=== PATIENT | male | born 1935 | race Caucasian/White ===

== ENCOUNTER 2018-04-05 18:54 | Inpatient (IN) | payer MEDICARE, MEDICAID ==
[~2018-04-05 18:54] MED LIST: ISOVUE-370 76%-LOCM 1 ML ONE
[2018-04-05 20:00] LABS: Hemoglobin 10.9 g/dL (14.0-18.0); Mean Corpuscular HGB CONC 32.9 g/dL (32.0-36.0); Mean Corpuscular Hemoglobin 29.9 pg (27.0-31.0); Mean Corpuscular Volume 90.7 fL (78.0-98.0); Mean Platelet Volume 8.5 fL (7.4-10.4); Platelet Count 184 thou/uL (130-400); RBC Distribution Width 13.7 % (11.5-14.5); Red Blood Cell (RBC) Count 3.66 mill/uL (4.70-6.10); White Blood Cell (WBC) Count 21.9 thou/uL (4.8-10.8)
[2018-04-05 20:08] LABS: #Lymphocytes 0.9 thou/uL (1.20-3.40); #Monocytes 1.7 thou/uL (0.11-0.59); #Neutrophils 19.1 thou/uL (1.40-6.50); %Basophils 0.1 % (0.0-1.0); %Eosinophils 0.1 % (0.0-10.0); %Lymphocytes 4.3 % (21.0-51.0); %Monocytes 7.8 % (0.0-10.0); %Neutrophils 87.8 % (42.0-75.0)
[2018-04-05 20:18] LABS: ALT (SGPT) 9 U/L (8-55); AST (SGOT) 14 U/L (5-34); Albumin 3.6 g/dL (3.4-4.8); Alkaline Phosphatase 58 U/L (40-150); Anion Gap 15 mmol/L (10-20); BUN (Urea Nitrogen) 33 mg/dL (8.4-25.7); Bilirubin, Total 0.5 mg/dL (0.2-1.2); Calc. Creatinine Clearance 0 mL/min (70-130); Calcium 8.9 mg/dL (7.8-10.44); Carbon Dioxide 26 mmol/L (23-31); Chloride 102 mmol/L (98-107); Estimated GFR-MDRD 36; Globulin 2.6 g/dL (2.4-3.5); Glucose 128 mg/dL (83-110); Lipase 5 U/L (8-78); Potassium 3.8 mmol/L (3.5-5.1); Protein, Total 6.2 g/dL (5.8-8.1); Sodium 139 mmol/L (136-145)
--- NOTE | 2018-04-05 20:27 | RAD ---
PORTABLE CHEST ONE VIEW: HISTORY: An 83-year-old male with a history of fever and abdominal pain. FINDINGS: Mild cardiomegaly. Increased linear and interstitial markings bilaterally, stable from prior study o f 12/03/2016. No confluent pneumonia, overt edema, or pleural effusion. IMPRESSION: 1. Stable borderline heart size and chronic appearing linear and interstitial lung changes bilateral ly. 2. No pneumonia or other significant acute process. 3. Atherosclerosis of the aorta. POS: [facility]
[2018-04-05] MEDS ORDERED: Famotidine/PF 20 mg/2ml Vial ONE (20:44)
[2018-04-05] MEDS ORDERED: methylPREDNISolone Sod Succ/PF 125 MG/2 ML VIAL ONE (20:44)
[2018-04-05] MEDS ORDERED: Piperacillin/Tazobactam 3.375 GM VIAL ONE (20:44)
[2018-04-05] MEDS ORDERED: Water For Inject, Bacteriostat 30 ML ONE (20:44)
[2018-04-05] MEDS ORDERED: diphenhydrAMINE 50 MG/ML VIAL ONE (20:49)
--- NOTE | 2018-04-05 21:06 | CT ---
CT ABDOMEN WITH CONTRAST: CT PELVIS WITH CONTRAST: COMPARISON: 12/01/2016 FINDINGS: ABDOMEN: A 1 cm nodule in the right lung base. Small bilateral effusions with adjacent parenchymal change is likely due to atelectasis. Questionable subcentimeter nodules in the inferior aspect of th e middle lobe. The heart is enlarged. No significant pericardial fluid. The visualized aorta has a n overall normal caliber. No periaortic fat stranding. The left renal vein is circumaortic. The portal vein is patent. The spleen, pancreas, adrenal glands, and liver have appropriate enhancement. Symmetric enhancement of the kidneys. Mild bilateral renal cortical thinning. Bilaterally, no obstr uctive uropathy. No gastrohepatic, retrocrural, or periportal lymphadenopathy. No mesenteric mass, lymphadenopathy, free air, or free fluid. Small umbilical hernia, containing mes enteric fat. Limited evaluation of the alimentary canal due to lack of oral contrast administration. Gastric muco sa and duodenum are unremarkable. Multiple normal caliber small bowel loops. The ileocecal junction is normal. An appendix is not appreciated. No inflammation at the cecal apex. The cecum, ascendin g colon, transverse colon, and proximal descending colon are unremarkable. The mid to distal descend ing colon, as well as the proximal sigmoid colon, have mucosal enhancement and wall thickening, along with mild pericolonic fat stranding. The mid to distal sigmoid colon and the rectum demonstrate muc osal enhancement and wall thickening. There appears to be circumferential air in the dependent, as w ell as nondependent, portion. A component of pneumatosis cannot be completely excluded. PELVIS: No mass, lymphadenopathy, free air, or free fluid. Unremarkable urinary bladder. No lytic or blastic lesions in the osseous structures. There is evidence of previous vertebroplasty change with methylmethacrylate involving the sacrum. Internal fixation hardware is noted in the righ t hip. IMPRESSION: Mucosal changes involving the left hemicolon, as described above. Findings may be due to an ischemic , infectious or inflammatory process. There appears to be pneumatosis involving the distal sigmoid c olon and rectum. The results of the study were discussed with Christa Melendez RN on 04/05/2018 at 8:47 p.m. CODE CR POS: [facility]
[2018-04-05 21:38] LABS: Bilirubin Small (Negative); Blood, Urine Negative (Negative); Clarity CLOUDY (Clear); Glucose, Urine (Dipstick) Negative (Negative); Leukocyte Small (Negative); Nitrite Negative (Negative); Protein, Urine (Dipstick) Trace mg/dL (Neg-Trace); Specific Gravity, Urine 1.013 (1.002-1.036); pH, Urine 5.5 (5.0-9.0)
[2018-04-05 21:40] LABS: Bacteria/HPF 1+ HPF (None Seen); Hyaline Casts/LPF 0-3 HYALINE CAST LPF (0-3 Hyaline); Pathc Cast-AUWi Flag 0.29 (0-2.49); RBC/HPF 0-3 HPF (0-3); Squamous Epithelial 0-3 HPF (0-3)
[2018-04-06] MEDS ORDERED: Ondansetron PF 4 MG/2 ML Vial IVP PRN (00:55)
[2018-04-06] MEDS ORDERED: Acetaminophen 650 MG Suppository PR PRN (00:55)
[2018-04-06 02:06] VITALS: BMI 30.3
[2018-04-06] MEDS ORDERED: cloNIDine 0.3mg/24 Hour PATCH TD SCH ×2 (02:15→09:00)
[2018-04-06] MEDS ORDERED: Sodium Chloride 0.9% 1,000 ML IV SCH (02:15)
[2018-04-06] MEDS: Sodium Chloride 0.9% 1,000 ML IV SCH ×2 (02:25→22:50)
[2018-04-06 04:32] LABS: #Lymphocytes 1.6 thou/uL (1.20-3.40); #Monocytes 0.3 thou/uL (0.11-0.59); #Neutrophils 15.3 thou/uL (1.40-6.50); %Basophils 0.1 % (0.0-1.0); %Eosinophils 0.3 % (0.0-10.0); %Lymphocytes 9.5 % (21.0-51.0); %Monocytes 1.5 % (0.0-10.0); %Neutrophils 88.7 % (42.0-75.0); Hemoglobin 10.9 g/dL (14.0-18.0); Mean Corpuscular HGB CONC 32.7 g/dL (32.0-36.0); Mean Corpuscular Hemoglobin 29.4 pg (27.0-31.0); Platelet Count 138 thou/uL (130-400); RBC Distribution Width 13.8 % (11.5-14.5); White Blood Cell (WBC) Count 17.3 thou/uL (4.8-10.8)
[2018-04-06 04:46] LABS: Anion Gap 15 mmol/L (10-20); BUN (Urea Nitrogen) 33 mg/dL (8.4-25.7); Calc. Creatinine Clearance 41 mL/min (70-130); Calcium 8.3 mg/dL (7.8-10.44); Carbon Dioxide 20 mmol/L (23-31); Chloride 107 mmol/L (98-107); Estimated GFR-MDRD 40; Glucose 153 mg/dL (83-110); Potassium 3.8 mmol/L (3.5-5.1); Sodium 138 mmol/L (136-145)
[2018-04-06] MEDS: Piperacillin/Tazobactam 2.25 GM in Sodium Chloride 0.9% 100 ML IVPB SCH ×3 (05:56→17:25)
[2018-04-06] MEDS ORDERED: Piperacillin/Tazobactam 4.5 GM in Sodium Chloride 0.9% 100 ML IVPB SCH (06:00)
[2018-04-06 08:54] LABS: CKMB 1.2 ng/mL (0-6.6); Troponin I 0.014 ng/mL (< 0.028)
--- NOTE | 2018-04-06 13:29 | PDOC.PN ---
- Subjective Encounter Start Date: 04/06/18 Encounter Start Time: 13:27 Subjective: still some abd pain arpound umbilicus,denies any N/V - Objective Resuscitation Status: Resuscitation Status FULL:Full Resuscitation MAR Reviewed: Yes Vital Signs & Weight: Vital Signs (12 hours) Temp Pulse Resp BP Pulse Ox 04/06/18 12:00 100 04/06/18 11:13 97.1 F L 57 L 16 170/91 H 100 04/06/18 08:00 98 04/06/18 07:58 97.8 F 59 L 15 158/62 H 99 04/06/18 03:35 97.6 F 61 20 158/83 H 96 Weight Weight 187 lb 13.341 oz Most Recent Monitor Data Heart Rate from ECG 55 NIBP 167/64 NIBP BP-Mean 98 Respiration from ECG 14 SpO2 98 I&O: 04/05/18 04/06/18 04/07/18 06:59 06:59 06:59 Intake Total 165 Balance 165 Result Diagrams: 04/06/18 04:15 04/06/18 04:15 Additional Labs: Microbiology 04/05/18 21:00 Nasal swab Influenza Types A,B Direct EIA - Final 04/05/18 21:05 Venous blood - Right Hand Blood Culture - Preliminary Specimen has been received and culture in progress. No Growth to date. 04/05/18 20:59 Venous blood - Left Hand Blood Culture - Preliminary Specimen has been received and culture in progress. No Growth to date. Laboratory Tests 04/05/18 04/05/18 04/06/18 19:50 19:50 04:15 WBC 21.9 H Creatinine 1.83 H 1.67 H 04/06/18 04:15 WBC 17.3 H Creatinine Phys Exam - Physical Examination Constitutional: NAD HEENT: PERRLA, moist MMs, sclera anicteric, TM's clear, oral pharynx no lesions , 2+ tonsils Neck: no nodes, no JVD, supple, full ROM Respiratory: no wheezing, no rales, no rhonchi, clear to auscultation bilateral Cardiovascular: RRR, no significant murmur, no rub, gallop Gastrointestinal: non-tender loud BS,TTP lower abdomen.no rigidity Musculoskeletal: no edema, pulses present Neurological: non-focal, normal sensation, moves all 4 limbs Psychiatric: normal affect, A&O x 3 Deviation from normal: orineted to self & place at least.understands the Dx & wants all tretament Skin: no rash Dx/Plan (1) Pneumatosis coli Code(s): K63.89 - OTHER SPECIFIED DISEASES OF INTESTINE Status: Acute (2) UTI (urinary tract infection) Status: Acute (3) Sinus pause Code(s): I45.5 - OTHER SPECIFIED HEART BLOCK Status: Acute (4) SIRS (systemic inflammatory response syndrome) Code(s): R65.10 - SIRS OF NON-INFECTIOUS ORIGIN W/O ACUTE ORGAN DYSFUNCTION Status: Acute (5) HTN (hypertension) Code(s): I10 - ESSENTIAL (PRIMARY) HYPERTENSION Status: Chronic (6) Macrocytic anemia Code(s): D53.9 - NUTRITIONAL ANEMIA, UNSPECIFIED Status: Chronic (7) Paroxysmal a-fib Code(s): I48.0 - PAROXYSMAL ATRIAL FIBRILLATION Status: Chronic (8) Acute kidney failure Status: Resolved - Plan continue antibiotics, PT/OT, DVT proph w/SCDs Conservative Rx for now.Poor surgical candidate.discussed w GS -: cont NPO,IVF,empiric ABx. -: consult GI if a colonoscopy is needed.pt wants aggressive Rx as neccessary -: Cardio consulted for sinus pauses.Hold BB.H/O PAFib -: clonidine patch & PRN meds for BP * .Palliative care team consulted for Goals of care as pt has H/O dementia and no immediate family member available .Full code till then * WBC counts and Renal Function improving.monitor
--- NOTE | 2018-04-06 14:15 | CON ---
DATE OF CONSULTATION: 04/06/2018 HISTORY OF PRESENT ILLNESS: Mr. Aguilar an 83-year-old male who reportedly has dementia. He was able to actually answer questions, knows he is in the hospital and knows he is here for abdominal pain. The nurses say his mental status will drift out and in, but for the most part, he seems to be fairly oriented. He apparently lives in a fulltime care environment, I am told because of dementia. He actually was in the hospital a year ago with a diagnosis of encephalopathy associated with urinary tract infection and dementia. PAST MEDICAL HISTORY: Remarkable for BPH, reflux disease, hypertension, atrial fibrillation, deconditioning. In 2017, he had a barium swallow done that showed good airway protection. Old records show that he has had macrocytic anemia in the past, moderate right internal carotid stenosis and a CVA in the past. He is on 20 medications when he was here in 10/2016. FAMILY HISTORY: Noncontributory. There is no reported history of lung disease in old records. SOCIAL HISTORY: He is not a smoker, not a drinker at this time. ALLERGIES: He reports an allergy to IODINE. REVIEW OF SYSTEMS: 10 point review of systems completed, not accurately obtainable. PHYSICAL EXAMINATION: GENERAL: Mr. Aguilar an 83-year-old male who reportedly has dementia. VITAL SIGNS: He is afebrile, heart rate is in the 50s, respiratory rate is 16, oximetry is 100% on room air, blood pressure 170/91. HEENT: Pupils are equal. Sclerae are anicteric. NECK: Supple. No lymphadenopathy. LUNGS: Clear. HEART: Regular rhythm. S1 and S2 are normal. There is a grade 2/6 systolic murmur. ABDOMEN: Diffusely tender, more so on the left lower quadrant. EXTREMITIES: Without clubbing, cyanosis or edema. LABORATORY DATA: White count 17.3, hemoglobin 10.9, platelets 138,000. Sodium 138, potassium 3.8, chloride 107, bicarbonate 20, BUN 33, creatinine 1.67, which is improved from 1.83. PH on a venous gas was 7.31. CT of the abdomen and pelvis is suggestive of a low-grade small-bowel obstruction. A large amount of stool was seen in the rectum. I do not see anything in the report that suggested pneumatosis, although that was the admitting diagnosis. IMPRESSION AND PLAN: Abdominal discomfort in an 83-year-old demented individual. Discussed with General Surgery. Obviously, conservative approach would be best. Disimpaction or an enema may be helpful. He appears to be hemodynamically stable at this point. His code status needs to be addressed with family. This is a 50-minute consult, with greater than 50% of the time was spent on the unit coordinating care. SERA
--- NOTE | 2018-04-06 14:58 | CON ---
DATE OF CONSULTATION: 04/06/2018 INDICATION FOR CONSULTATION: An 83-year-old patient with bradycardia and pauses. HISTORY OF PRESENT ILLNESS: This is a very pleasant 83-year-old gentleman who has some degree of dem entia, who was brought to the emergency room and admitted to the hospital after he complained of [place] pain and fever. He has been found to have possible pneumatosis of the distal sigmoid and possi bill ischemic colitis. He has been complaining of abdominal discomfort, but during the interim, he eaton s developed bradycardia with up to 2.9 second pauses. He has been on clonidine patch, which we would stop as this may be the etiology of his bradycardia, who has had no previous cardiac history in this patient. He does have a history of intermittent paroxysmal atrial fibrillation. At this time, he i s in a sinus rhythm with occasional PACs, but does have episodes of severe bradycardia, this does odette ear to be sinus and then has multiple pauses up to 2.9 seconds. He denies any chest pain or shortnes s of breath. He mainly complains of abdominal discomfort. He did have an echocardiogram in 2017, wh ich showed ejection fraction of 50% to 55% with moderate mitral and tricuspid valve regurgitation. PAST MEDICAL HISTORY: Significant for hypertension, benign prostatic hypertrophy, small-bowel obstru ction, Alzheimer's, paroxysmal atrial fibrillation, gastroesophageal reflux disease. He has had a CV A in the past. He has chronic anemia. SOCIAL HISTORY: Please refer to the notes already dictated. FAMILY HISTORY: Please refer the notes dictated. ALLERGIES: IODINE. MEDICATIONS: At this time include antibiotics in the form of piperacillin. He is also on vancomycin . He had a clonidine patch, which I have removed. He is on Tylenol and hydralazine. I started him on hydralazine for his hypertension and he is on H2 blockers. His medications at home included Floma x, Protonix, lisinopril, furosemide 40 mg a day, Aricept, aspirin 325 mg a day, MiraLax, minoxidil 10 mg tablets, he was taken 5 mg I believe once a day, tramadol. He was on Artificial Tears, FiberCon. He wore a Catapres patch and also was on metoprolol 25 mg b.i.d. REVIEW OF SYSTEMS: Not obtainable. The patient does have some dementia. Please refer to the notes dictated. I cannot obtain a corrective review of systems in this patient except he does complain of the abdominal discomfort. PHYSICAL EXAMINATION: GENERAL: Reveals an elderly gentleman. VITAL SIGNS: Blood pressure 158/62, heart rate is 60 and regular at this time, he is afebrile, respi ratory rate is 18. HEENT: Shows the head to be normocephalic and atraumatic. Carotid pulses are present. There is a s oft right carotid bruit noted. No JVD was noted. CHEST: Clear to auscultation. CARDIOVASCULAR: Reveals a regular rhythm at this time, somewhat slow, but regular. I did not hear a ny significant ectopy. There were no significant murmurs, heaves, thrills, bruits or rubs. He has a very soft systolic murmur at the apex. ABDOMEN: Tender. He complains of discomfort. Unable to palpate or do full thorough examination. EXTREMITIES: Pulses are diminished pedal pulses, I cannot palpate them. He does have mild lower ext remity edema bilaterally and ankle edema is present. NEUROLOGIC: The patient appears to be fatigued, but he does answer most questions, but it is difficu lt to obtain a review of systems from the patient. He speaks very few words. IMPRESSION: 1. Significant bradycardia with a history of paroxysmal atrial fibrillation, but at this time, he eaton s had significant pauses associated with the bradycardia. We will hold the clonidine patch. We will need to be careful that he does not have rebound phenomenon from holding the clonidine, but was to c over him with hydralazine as needed. The clonidine may be the etiology of the bradycardia at this ti me. Once he is more stable, then we can resume some of his medications, perhaps we will find other m edicines for his bradycardia and pauses. At this time, I did not think he is a reasonable candidate to undergo pacemaker insertion. We can apply an external pacemaker if necessary. He does appear to have some degree of sepsis due to the elevated white blood cell count of 21,000, and would not be a c andidate at this time to place a pacemaker due to an ongoing infection. 2. History of pneumatosis of the distal sigmoid and possible ischemic colitis. He will possibly hav e exploratory surgery later today depending on the evaluation from the surgical team. 3. History of renal insufficiency. His creatinine is elevated. It was 1.83, it is now decreased do wn to 1.67. We will continue to follow this. He continues with volume replacement. 4. History of hypertension. As noted above, we will try to control this with hydralazine at this ti me and we will stop the clonidine patch. As far as his other medical problems, Alzheimer's, he appea rs to be reasonable at some times, but for me, I cannot obtain much history from the patient. 5. History of paroxysmal atrial fibrillation. He appears to be in sinus rhythm at this time with th e bradycardic episodes. Should he remain stable and should he survive his present hospitalization, t hen he may need to undergo pacemaker insertion if he so desires, and then he can be started back on h is medications in order to control the blood pressure. As far as I know, he has had no previous sign ificant cardiac workup to determine whether or not he has any underlying coronary artery disease. He had an echocardiogram in 2017, we will try to obtain a repeat echocardiogram at this time.
[2018-04-06] MEDS ORDERED: Vancomycin HCl 1.25 GM in Sodium Chloride 0.9% 250 ML 250 ML IVPB SCH (18:00)
--- NOTE | 2018-04-06 20:58 | CON ---
DATE OF CONSULTATION: 04/06/2018 REASON FOR CONSULTATION: Pneumatosis coli. CONSULTING PHYSICIAN: Aylin Presley MD HISTORY OF PRESENT ILLNESS: The patient is an 83-year-old male with past medical history of chronic macrocytic anemia, encephalopathy/Alzheimer's dementia, atrial fibrillation, GERD, BPH, TIA, dysphagi a and chondromalacia presenting with complaints of abdominal pain. The patient is a fairly poor hist orian with majority of the information obtained through chart review, but the patient states that he had been having increased abdominal pain for the last 24 hours. The pain was located in the lower ab dominal quadrants and characterizes just "pain." The pain was nonradiating and would reach a severit y of 7-8/10. With his increasing abdominal pain, it prompted his admission to the [facility] ER wh ere he was noted to have a low-grade fever. Upon evaluation with imaging, he was also noted to have wall thickening along the sigmoid colon and rectum concerning for inflammation and circumferential ai r in the dependent and nondependent portions concerning for pneumatosis coli. Per nursing staff, he has had approximately 2 bowel movements during his hospitalization that were liquid to semi-solid in character. Currently, he denies any nausea, vomiting, GI bleeding, constipation or weight loss. REVIEW OF SYSTEMS: Limited review of systems is obtained with all responses negative except for the pertinent positives as listed in the HPI. Review of systems is limited primarily due to patient bein g a poor historian and largely unintelligible speech pattern. PAST MEDICAL HISTORY: As per HPI. PAST SURGICAL HISTORY: Unknown. FAMILY HISTORY: Denies any family history of GI malignancies, nor any seen in the records. SOCIAL HISTORY: Denies any tobacco, alcohol or illicit drug use at this time. OUTPATIENT MEDICATIONS: Reviewed. ALLERGIES: IODINE. PHYSICAL EXAMINATION: VITAL SIGNS: Temperature of 97.2, pulse 58, blood pressure 161/58, respiratory rate 18, satting at 1 00% on 1 liter nasal cannula. GENERAL: The patient was lying in bed in no acute distress, alert and oriented x2. NECK: Supple. No JVD noted. No scleral icterus noted as well. CARDIOVASCULAR: Regular rate and rhythm with no discernible murmurs, gallops or rubs. RESPIRATORY: Clear to auscultation bilaterally with no discernible wheezes or rales. ABDOMEN: Normoactive bowel sounds, soft. Mild abdominal distention with tenderness to palpation in the right and left lower quadrants. EXTREMITIES: No cyanosis, clubbing or edema. LABORATORY DATA: CBC with a white blood cell count of 17.3, hemoglobin 10.9, hematocrit 33.3 and odalis telets 138. Chemistry with a sodium of 138, potassium 3.8, chloride 107, CO2 is 20, BUN 33, creatini ne 1.67, glucose 153, AST 14, ALT 9, alkaline phosphatase 58, total bilirubin 0.5, lipase 5. IMAGING DATA: CT of the abdomen and pelvis obtained on 04/05/2018 showed mid to distal descending co reina as well as proximal sigmoid colon having mucosal enhancement and wall thickening along with mild pericolonic fat stranding. There appears to be circumferential air in the dependent and nondependent portions consistent with pneumatosis coli. ASSESSMENT AND PLAN: The patient is an 83-year-old male with past medical history of chronic macrocy tic anemia, encephalopathy, Alzheimer's dementia, atrial fibrillation, gastroesophageal reflux diseas e, benign prostatic hypertrophy, transient ischemic attack, dysphagia and chondromalacia presenting w ith lower abdominal pain and imaging consistent with pneumatosis coli. Abdominal pain/pneumatosis coli. The patient is presenting with acute onset of lower abdominal pain characterizes just "pain" with no radiation to the surrounding abdominal regions. Upon evaluation within the [facility] ER, he was n oted to have an elevated white blood cell count as well as a mild low-grade fever and imaging showing inflammation characterizes sigmoid and rectal wall thickening as well as the possibility of circumfe rential air in the dependent and nondependent portions of the colon consistent with pneumatosis coli. The two more likely reasons for the development of pneumatosis coli, especially in this region woul d be either a history of COPD (which this patient does not have) versus an infectious process with tr anslocation of either gas or bacteria along the colonic mucosa. Given the diarrhea bowel movem ents that he has had during this admission, an infectious process needs to be ruled out at this time. RECOMMENDATIONS: 1. We would obtain stool studies for evaluation of an infectious process and tailor antibiotics acco rdingly. 2. We would start the patient on antibiotics after the stool studies have been obtained with broad s pectrum therapy (I agree with Zosyn administration). 3. We would place the patient on higher flow oxygen to help reabsorb colonic air. 4. Given the significant amount of stool within the rectum, we would consider MiraLax administration in the future, but given his diarrhea-like bowel movements, we will hold off at this time. 5. Surgical evaluation is not necessarily indicated at this time unless presence of free air or mode toneal signs. We will continue to follow. Please call with any questions.
[2018-04-07] MEDS: Piperacillin/Tazobactam 2.25 GM in Sodium Chloride 0.9% 100 ML IVPB SCH ×4 (00:27→17:36)
[2018-04-07] MEDS: hydrALAZINE 20 MG/ML VIAL SLOW IVP PRN ×3 (02:10→15:53)
[2018-04-07 04:24] LABS: #Eosinphils 0.1 thou/uL (0.0-0.7); #Lymphocytes 1.7 thou/uL (1.20-3.40); #Monocytes 1.4 thou/uL (0.11-0.59); #Neutrophils 13.2 thou/uL (1.40-6.50); %Basophils 0.1 % (0.0-1.0); %Eosinophils 0.3 % (0.0-10.0); %Lymphocytes 10.2 % (21.0-51.0); %Monocytes 8.6 % (0.0-10.0); %Neutrophils 80.8 % (42.0-75.0); Hemoglobin 10.2 g/dL (14.0-18.0); Mean Corpuscular HGB CONC 33.5 g/dL (32.0-36.0); Mean Corpuscular Hemoglobin 30.1 pg (27.0-31.0); Mean Platelet Volume 9.2 fL (7.4-10.4); Platelet Count 162 thou/uL (130-400); RBC Distribution Width 13.9 % (11.5-14.5); Red Blood Cell (RBC) Count 3.39 mill/uL (4.70-6.10); White Blood Cell (WBC) Count 16.3 thou/uL (4.8-10.8)
[2018-04-07 04:40] LABS: Anion Gap 15 mmol/L (10-20); BUN (Urea Nitrogen) 30 mg/dL (8.4-25.7); Calc. Creatinine Clearance 42 mL/min (70-130); Carbon Dioxide 23 mmol/L (23-31); Chloride 110 mmol/L (98-107); Estimated GFR-MDRD 40; Glucose 102 mg/dL (83-110); Potassium 3.6 mmol/L (3.5-5.1); Sodium 144 mmol/L (136-145)
--- NOTE | 2018-04-07 13:27 | PDOC.PN ---
- Subjective Encounter Start Date: 04/07/18 Encounter Start Time: 13:25 Subjective: reports that he feels better. -: when asked about abd pain ,he says it's better -: no nausea/vomiting - Objective Resuscitation Status: Resuscitation Status FULL:Full Resuscitation MAR Reviewed: Yes Vital Signs & Weight: Vital Signs (12 hours) Temp Pulse Resp BP BP Pulse Ox 04/07/18 11:29 99.8 F H 82 20 184/62 H 100 04/07/18 08:49 75 194/78 H 04/07/18 08:00 100 04/07/18 07:32 98.6 F 133 H 19 100 04/07/18 02:10 55 L 178/63 H Weight Weight 187 lb 13.341 oz Most Recent Monitor Data Heart Rate from ECG 55 NIBP 167/64 NIBP BP-Mean 98 Respiration from ECG 14 SpO2 98 I&O: 04/06/18 04/07/18 04/08/18 06:59 06:59 06:59 Intake Total 165 1834 Output Total 0 Balance 165 1834 Result Diagrams: 04/07/18 03:41 04/07/18 03:41 Additional Labs: Microbiology 04/06/18 17:40 Stool Campylobacter Antigen Assay - Final 04/06/18 17:40 Stool Shiga Toxin Test - Final 04/06/18 17:40 Stool C. difficile GDH Antigen & Toxins - Final 04/05/18 21:00 Nasal swab Influenza Types A,B Direct EIA - Final 04/05/18 21:05 Venous blood - Right Hand Blood Culture - Preliminary Specimen has been received and culture in progress. No Growth to date. 04/05/18 21:00 Urine Straight Catheter Urine Culture - Preliminary Escherichia coli 04/05/18 20:59 Venous blood - Left Hand Blood Culture - Preliminary Specimen has been received and culture in progress. No Growth to date. Phys Exam - Physical Examination Constitutional: NAD awake and alert & follows simple commands & answers Qs HEENT: sclera anicteric dry mucosa Neck: no nodes, no JVD, supple, full ROM Respiratory: no wheezing, no rales, no rhonchi Cardiovascular: RRR, no significant murmur Gastrointestinal: soft, non-tender, no distention, positive bowel sounds Musculoskeletal: no edema, pulses present Neurological: non-focal, normal sensation, moves all 4 limbs Psychiatric: normal affect Skin: no rash Dx/Plan (1) Pneumatosis coli Code(s): K63.89 - OTHER SPECIFIED DISEASES OF INTESTINE Status: Acute Comment: Conservative treatment (2) UTI (urinary tract infection) Status: Acute (3) Acute kidney failure Status: Acute (4) Sinus pause Code(s): I45.5 - OTHER SPECIFIED HEART BLOCK Status: Acute (5) SIRS (systemic inflammatory response syndrome) Code(s): R65.10 - SIRS OF NON-INFECTIOUS ORIGIN W/O ACUTE ORGAN DYSFUNCTION Status: Acute (6) HTN (hypertension) Code(s): I10 - ESSENTIAL (PRIMARY) HYPERTENSION Status: Chronic (7) Macrocytic anemia Code(s): D53.9 - NUTRITIONAL ANEMIA, UNSPECIFIED Status: Chronic (8) Paroxysmal a-fib Code(s): I48.0 - PAROXYSMAL ATRIAL FIBRILLATION Status: Chronic (9) NSVT (nonsustained ventricular tachycardia) Code(s): I47.2 - VENTRICULAR TACHYCARDIA Status: Acute - Plan continue antibiotics, PT/OT, out of bed/ambulate, DVT proph w/SCDs clinically better.cont IVF,epmiric IV ABx. stool studies negative -: E.Coli in urine sensitive to current ABx.cont -: Clonidine patch stopped for bradycardia.Add meds for High BP. -: ECHO shows NL EF.mild Diastolic dysFx.? BB affect or tachy-carole. -: not a candidate for PPM for now given active infection * .cont supportive care. * PCT consulted to address goals of care Review of Systems - Review of Systems Other: limited ROS due to dementia but reports that he feels better .wants to drink water - Medications/Allergies Allergies/Adverse Reactions: Allergies Allergy/AdvReac Type Severity Reaction Status Date / Time iodine Allergy Verified 04/06/18 03:55 Medications: Current Medications Acetaminophen (Tylenol) 650 mg PO Q4H PRN PRN Reason: Headache/Fever/Mild Pain (1-3) Acetaminophen (Tylenol) 650 mg WA Q4H PRN PRN Reason: Headache/Fever/Mild Pain (1-3) Hydralazine HCl (Apresoline) 10 mg SLOW IVP Q4H PRN PRN Reason: Hypertension Last Admin: 04/07/18 08:49 Dose: 10 mg Sodium Chloride (Normal Saline 0.9%) 1,000 mls @ 75 mls/hr IV .[id number] [facility] Last Admin: 04/06/18 22:50 Dose: 1,000 mls Piperacillin Sod/Tazobactam (Sod 2.25 gm/ Sodium Chloride) 100 mls @ 200 mls/ hr IVPB Q6HR [facility] Last Admin: 04/07/18 12:09 Dose: 100 mls Vancomycin HCl 1.25 gm/ Sodium (Chloride) 250 mls @ 166.667 mls/hr IVPB 1800 [facility] Last Admin: 04/06/18 18:12 Dose: 250 mls Ondansetron HCl (Zofran) 4 mg IVP Q6H PRN PRN Reason: Nausea/Vomiting
--- NOTE | 2018-04-07 13:38 | PRG ---
DATE OF SERVICE: 04/07/2018 REASON FOR CONSULTATION: Pneumatosis coli. SUBJECTIVE: The patient did experience some loss of sensorium last night, consistent with owning with removal of his IVs at that time, but has since been reoriented and doing well this morning. Cu rrently, denies any nausea, vomiting, fevers, chills or GI bleeding. He does continue to have some m ild lower abdominal pain, but improved when compared to yesterday. OBJECTIVE: VITAL SIGNS: Temperature 99.8, pulse 82, blood pressure 184/62, respiratory rate 20, satting 100% on 2 liters nasal cannula. GENERAL: The patient was lying in bed, in no acute distress, alert and oriented x2. Speech somewhat garbled and difficult to understand at times. CARDIOVASCULAR: Regular rate and rhythm. RESPIRATORY: Clear to auscultation bilaterally. ABDOMEN: Normoactive bowel sounds, soft. Mild abdominal distention with tenderness to palpation in the right and left lower quadrants. EXTREMITIES: No cyanosis, clubbing or edema. LABORATORY DATA: CBC with a white blood cell count of 16.3, hemoglobin 10.2, hematocrit 30.6, platel ets 162,000. Chemistry with a sodium of 144, potassium 3.6, chloride 110, CO2 23, BUN 30, creatinine 1.65, glucose 102. Stool studies thus far have been negative for C. diff, Campylobacter and E. coli with salmonella and Shigella still pending. Urinalysis was positive for the presence of E. coli. IMAGING DATA: No current GI imaging is available for review. ASSESSMENT AND PLAN: The patient is an 83-year-old male with past medical history of chronic macrocy tic anemia, encephalopathy, Alzheimer's dementia, atrial fibrillation, gastroesophageal reflux diseas e, benign prostatic hyperplasia, transient ischemic attack, dysphagia and chondromalacia presenting w ith lower abdominal pain and imaging consistent with pneumatosis coli. Abdominal pain/pneumatosis coli: The patient presented with acute onset of lower abdominal pain with no radiation to the surrounding abdominal regions. Upon evaluation with the [facility], he was n oted to have an elevated white blood cell count, low grade fever and imaging showing possible pneumat osis coli. Currently, he is responding with more conservative type management with IV fluid support and antibiotic administration with infectious stool studies negative at this time (although some are still pending). Given his lack of prior diagnosis of chronic obstructive pulmonary disease, the pres ence of pneumatosis coli is more likely related to an infectious process with translocation of either the or the bacteria itself into the colonic mucosal wall generating the appearance on CT. RECOMMENDATIONS: 1. We will follow up on the remainder of the stool studies for possible infectious process and tailo r antibiotics accordingly. 2. Agree with broad spectrum antibiotic therapy for now given lack of pathogen and improving clinica l status. 3. We would place the patient on higher flow oxygen to help reabsorb the colonic air/pneumatosis col i. 4. We would continue MiraLax given the significant amount of stool, but would be quick to discontinu e this medication if inducing increased diarrhea. 5. Colonoscopy evaluation at this time could potentially cause increased dissection and/or per foration, which is ill advised at this time. We will continue to follow. Please call with any questions.
--- NOTE | 2018-04-07 14:32 | HP ---
PRIMARY CARE PHYSICIAN: Dr. Luna Pink. CODE STATUS: FULL CODE. TIME OF EVALUATION: 12:00 a.m. CHIEF COMPLAINT: Abdominal pain. HISTORY OF PRESENT ILLNESS: This is an 83-year-old male patient with past medical history of chronic microcytic anemia, encephalopathy, BPH, arrhythmia, atrial fibrillation, GERD, Alzheimer's disease. The patient came to the hospital after having abdominal pain, it was severe, no clear triggers, no a lleviating factors, this is a new problem, patient has severe tenderness, symptoms started insidiousl y and gradually got worse, the patient was in a [facility]. The patient is also confused, un derlying dementia. REVIEW OF SYSTEMS: The patient is confused, noncooperative, patient had a fever and abdominal pain. Other history is difficult to obtain from patient due to underlying dementia and confusion. PAST SURGICAL HISTORY: Unable to obtain due to dementia and confusion. PSYCHIATRIC HISTORY: Unable to obtain due to dementia and confusion. SOCIAL HISTORY: The [facility] lives [facility]. FAMILY HISTORY: Unable to obtain due to confusion. ALLERGIES: IODINE. REPORTED MEDICATIONS: Clonidine patch, aspirin, furosemide, lisinopril, pantoprazole, Artificial Tea rs, FiberCon, metoprolol, MiraLax, tramadol, , tamsulosin. PHYSICAL EXAMINATION: VITAL SIGNS: On presentation, blood pressure 145/59 with heart rate 74, respiratory rate was 17, tem perature 101.6, pain was 10/10, oxygen saturation room air. The patient has got a very high bl ood pressure with a systolic in the 190s. GENERAL APPEARANCE: The patient is confused, underlying dementia, disoriented. HEENT: Eyes, dry conjunctiva, anicteric. NECK: No JVD. RESPIRATORY: Bilateral air entry. No rales, no wheezing. Symmetric expansion. CARDIOVASCULAR: Normal rate, regular rhythm. No murmurs, no gallop, no edema. ABDOMEN: Distended, soft. Bowel sounds are present. MUSCULOSKELETAL: Baseline range of motion and strength. No tenderness. SKIN: Warm and intact. No pallor, no rash, no redness. Peripheral pulses are present. Capillary r efill seems to be intact. NEUROLOGIC: No evidence of any new focal weakness. PSYCHIATRIC: The patient is confused, no anxiety. The patient has stable borderline heart size and chronic appearing linear interstitial lung ciera nges bilaterally. No pneumonia or other significant acute process. Atherosclerosis of the aorta. A bdomen and pelvis CT was reported as having mucosal changes involving the left hemicolon as described above. Findings may be due to an ischemic inflammatory process. There appears to be pneumato sis involving colon or rectum. LABORATORY DATA: Labs were reviewed. White count 21.9, hemoglobin 10.9, MCV 90, platelet count 184, neutrophils 87. Chemistry: Sodium 139, potassium 3.8, chloride 102, carbon dioxide 26, anion gap 1 5, BUN 33 and creatinine 1.83 when compared with previous creatinine from 11/2016 at that time was 1. 0. GFR 36, glucose 128. Lactic acid 1.2, calcium . LFTs were negative. Lipase 5. UA was don e. The patient has a white count of 7-10 with a small leukocyte esterase. ASSESSMENT AND PLAN: The patient will be placed in the hospital with following medical problems: 1. Possible sigmoid pneumatosis, as per ER report, the case was discussed with Surgery, Dr. Pedersen, who that he will see the patient, we will follow recommendations. 2. Sepsis. The patient had temperature of 101.6, with leukocytosis, source is sigmoid pneumatosis, patient is on antibiotics, follow cultures, we will adjust the treatment as needed. 3. Possible acute kidney injury. Creatinine in the patient was 1.8 mg per deciliter. This is incre ased 0.8 from previous values in our records, we will hydrate, will monitor kidney function. If not improving, might need to call Nephrology for assistance with our patient. 4. Hyperglycemia, no diabetes reported, we will monitor, we will adjust treatment as needed. 5. Possible urinary tract infection. The patient has white counts 7-10, that is abnormal, the patie nt is already receiving antibiotics, we will follow up cultures. We will adjust treatment as needed. 6. Deep venous thrombosis prophylaxis.
[2018-04-07] MEDS ORDERED: Digoxin 0.5 MG/2 ML AMP ONE (14:48)
[2018-04-07] MEDS ORDERED: Digoxin 0.5 MG/2 ML AMP SLOW IVP SCH (15:00)
[2018-04-07] MEDS: Sodium Chloride 0.9% 1,000 ML IV SCH (17:01)
[2018-04-07] MEDS ORDERED: Haloperidol Lactate 5 MG/ML VIAL IM PRN (17:45)
[2018-04-07 18:03] LABS: Vancomycin, Trough 14.1 ug/mL
[2018-04-07] MEDS: Acetaminophen 325 MG TAB PO PRN (18:18)
--- NOTE | 2018-04-07 21:00 | PRG ---
DATE OF SERVICE: 04/07/2018 SUBJECTIVE: Ms. Aguilar looks a little better. He is intermittently oriented. He knows he is in the hospital but does not know what town he is in. OBJECTIVE: VITALS: Blood pressure has been elevated intermittently throughout the day, 184 /62 earlier, 207/80 this afternoon, respiratory rate is 20, oximetry is 100% on 2 liters. LUNGS: Clear. HEART: Regular rhythm. ABDOMEN: Much less tender than it was yesterday. IMPRESSION: ?Pneumatosis. He is clinically improved. Conservative approach would be in his best interest in my opinion with his dementia. A low dose of Haldol may help with his confusion. We will continue to follow. GIAND
[2018-04-07] MEDS: Nitroglycerin 2% Ointment 1 INCH/1 GM Packet TOP SCH (21:40)
[2018-04-08] MEDS: Piperacillin/Tazobactam 2.25 GM in Sodium Chloride 0.9% 100 ML IVPB SCH ×5 (01:22→23:54)
[2018-04-08] MEDS: hydrALAZINE 20 MG/ML VIAL SLOW IVP PRN (05:28)
[2018-04-08] MEDS: Sodium Chloride 0.9% 1,000 ML IV SCH ×2 (05:46→17:31)
[2018-04-08] MEDS: Nitroglycerin 2% Ointment 1 INCH/1 GM Packet TOP SCH ×2 (08:38→20:04)
--- NOTE | 2018-04-08 10:09 | PRG ---
DATE OF SERVICE: 04/08/2018 REASON FOR CONSULTATION: Pneumatosis coli. SUBJECTIVE: The patient did well overnight with no acute events or problems per nursing staff. This morning he states that he continues to have mild lower abdominal pain, but is improved from previous. Otherwise, he denies any nausea , vomiting, fevers, chills or GI bleeding. OBJECTIVE: VITAL SIGNS: Temperature 99.8, pulse 96, blood pressure 164/97, respiratory rate 18, satting 98% on 2 liters nasal cannula. GENERAL: The patient was lying in bed in no acute distress, alert and oriented x2. Speech is somewhat garbled and difficult to understand at times. CARDIOVASCULAR: Regular rate and rhythm. LUNGS: Clear to auscultation bilaterally. ABDOMEN: Normoactive bowel sounds, soft, nontender, nondistended. EXTREMITIES: No cyanosis, clubbing or edema. LABORATORY DATA: CBC with a white blood cell count of 16.3, hemoglobin 10.2, hematocrit 30.6, platelets 162. Chemistry with a sodium of 144, potassium 3.6, chloride 110, CO2 23, BUN 30, creatinine 1.65, glucose 102. IMAGING DATA: No current GI imaging is available for review. ASSESSMENT AND PLAN: The patient is an 83-year-old male with past medical history of chronic macrocytic anemia, encephalopathy/Alzheimer's dementia, atrial fibrillation, GERD, BPH, TIA, dysphagia and chondromalacia presenting with lower abdominal pain and imaging consistent with pneumatosis coli. Abdominal pain/pneumatosis coli. The patient presented with acute onset of lower abdominal pain with evaluation in the ER showing an elevated white blood cell count, low grade fever and imaging showing possible pneumatosis coli. Currently, he is responding with more conservative management with IV fluid and antibiotic administration, although infectious stool studies have been negative at this time. At this point, given his clinical improvement, I would continue with more conservative management at this time with no plans for endoscopic evaluation. RECOMMENDATIONS: 1. I would agree with broad spectrum antibiotic therapy for now given lack of pathogen and improving clinical status. 2. I would continue patient on oxygen therapy/high flow oxygen for pneumatosis coli. 3. Would continue MiraLax given possible constipation contributing to stercoral colitis/diverticulitis. 4. Colonoscopy is not planned at this time given the likelihood of either infection versus diverticulitis versus pneumatosis coli, all of which could be made worse with endoscopic evaluation. We will continue to follow. Please call with any questions. MTDD
--- NOTE | 2018-04-08 11:17 | PRG ---
DATE OF SERVICE: 04/08/2018 Mr. Aguilar is doing well. There are some concerns about whether or not he could swallow adequately. At his degree of dementia, I think it is reasonable to continue what was being done at the nursing h ome where he was being allowed to eat and drink. PHYSICAL EXAMINATION: VITAL SIGNS: He is afebrile, heart rate 96, respiratory rate is 18, oximetry is 98, blood pressure 1 64/97. LUNGS: His lungs are clear. HEART: Regular rhythm. ABDOMEN: Abdomen is soft. He has no tenderness on exam now. He has done well with fluids and antibiotics. I would recommend moving him up to a medical bed. I will advance his diet as tolerated. I do not feel he needs consideration for PEG placement or anyt janette like that at this time. He certainly would not understand why he is having to go through that. There is no family at the bedside and apparently the family consists of brothers and a niece and the y are fairly disconnected. We will continue to follow.
[2018-04-08] MEDS: Minoxidil 2.5 MG TAB PO SCH (11:19)
--- NOTE | 2018-04-08 11:24 | PDOC.PN ---
- Subjective Encounter Start Date: 04/08/18 Encounter Start Time: 11:22 Subjective: wants to eat.reports that abd pain is better -: no overnight events. had 1 episode of SVT yesterday aborted by Digoxin - Objective Resuscitation Status: Resuscitation Status FULL:Full Resuscitation MAR Reviewed: Yes Vital Signs & Weight: Vital Signs (12 hours) Temp Pulse Resp BP Pulse Ox 04/08/18 11:18 99.2 F 93 18 161/90 H 99 04/08/18 07:45 99.8 F H 96 18 164/97 H 98 04/08/18 07:39 100 04/08/18 05:28 66 04/08/18 04:40 98.8 F 66 18 183/79 H 96 04/08/18 00:35 98.7 F 64 17 179/66 H 95 Weight Weight 185 lb 14.4 oz Most Recent Monitor Data Heart Rate from ECG 55 NIBP 167/64 NIBP BP-Mean 98 Respiration from ECG 14 SpO2 98 I&O: 04/07/18 04/08/18 04/09/18 06:59 06:59 06:59 Intake Total 1834 1919 Output Total 0 Balance 1833 1918 Result Diagrams: 04/07/18 03:41 04/07/18 03:41 Additional Labs: Microbiology 04/06/18 17:40 Stool Escherichia coli 0157 Culture - Final 04/06/18 17:40 Stool Campylobacter Antigen Assay - Final 04/06/18 17:40 Stool Shiga Toxin Test - Final 04/06/18 17:40 Stool C. difficile GDH Antigen & Toxins - Final 04/05/18 21:00 Urine Straight Catheter Urine Culture - Final Escherichia coli 04/05/18 21:00 Nasal swab Influenza Types A,B Direct EIA - Final 04/06/18 17:40 Stool Stool Culture - Preliminary 04/05/18 21:05 Venous blood - Right Hand Blood Culture - Preliminary NO GROWTH AT 48 HOURS 04/05/18 20:59 Venous blood - Left Hand Blood Culture - Preliminary NO GROWTH AT 48 HOURS Phys Exam - Physical Examination Constitutional: NAD HEENT: PERRLA, moist MMs, sclera anicteric, oral pharynx no lesions Neck: no nodes, no JVD, supple, full ROM Respiratory: no wheezing, no rales, no rhonchi, clear to auscultation bilateral Cardiovascular: RRR, no significant murmur, no rub Gastrointestinal: soft, non-tender, no distention, positive bowel sounds Musculoskeletal: no edema, pulses present Neurological: moves all 4 limbs Psychiatric: normal affect Skin: no rash Dx/Plan (1) Pneumatosis coli Code(s): K63.89 - OTHER SPECIFIED DISEASES OF INTESTINE Status: Acute Comment: Conservative treatment (2) UTI (urinary tract infection) Status: Acute (3) Acute kidney failure Status: Acute (4) Sinus pause Code(s): I45.5 - OTHER SPECIFIED HEART BLOCK Status: Acute Comment: Cont to hold Clonidine and BB (5) SIRS (systemic inflammatory response syndrome) Code(s): R65.10 - SIRS OF NON-INFECTIOUS ORIGIN W/O ACUTE ORGAN DYSFUNCTION Status: Acute (6) HTN (hypertension) Code(s): I10 - ESSENTIAL (PRIMARY) HYPERTENSION Status: Chronic (7) Macrocytic anemia Code(s): D53.9 - NUTRITIONAL ANEMIA, UNSPECIFIED Status: Chronic (8) Paroxysmal a-fib Code(s): I48.0 - PAROXYSMAL ATRIAL FIBRILLATION Status: Chronic (9) NSVT (nonsustained ventricular tachycardia) Code(s): I47.2 - VENTRICULAR TACHYCARDIA Status: Acute - Plan continue antibiotics, PT/OT, incentive spirometry, out of bed/ambulate, DVT proph w/SCDs Clinically better. advance diet and move to medical floor -: cont empiri cABx and IVf for today -: Restart Lisinopril and Minoxidil as BP.clonidine/BB on hold d/y bradycardia -: Not a good candidate for aggressive procedures like PPM -: check labs in am.PCt to address Code status w family-appreciate help * . Review of Systems - Review of Systems Other: limited due to dementia but he reports no discomfort - Medications/Allergies Allergies/Adverse Reactions: Allergies Allergy/AdvReac Type Severity Reaction Status Date / Time iodine Allergy Verified 04/06/18 03:55 Medications: Current Medications Acetaminophen (Tylenol) 650 mg PO Q4H PRN PRN Reason: Headache/Fever/Mild Pain (1-3) Last Admin: 04/07/18 18:18 Dose: 650 mg Acetaminophen (Tylenol) 650 mg DE Q4H PRN PRN Reason: Headache/Fever/Mild Pain (1-3) Haloperidol Lactate (Haldol) 5 mg IM Q4H PRN PRN Reason: Agitation Hydralazine HCl (Apresoline) 10 mg SLOW IVP Q4H PRN PRN Reason: Hypertension Last Admin: 04/08/18 05:28 Dose: 10 mg Sodium Chloride (Normal Saline 0.9%) 1,000 mls @ 75 mls/hr IV .[id number] [facility] Last Admin: 04/08/18 05:46 Dose: 1,000 mls Piperacillin Sod/Tazobactam (Sod 2.25 gm/ Sodium Chloride) 100 mls @ 200 mls/ hr IVPB Q6HR [facility] Last Admin: 04/08/18 11:19 Dose: 100 mls Minoxidil (Minoxidil) 5 mg PO 1200 [facility] Last Admin: 04/08/18 11:19 Dose: 5 mg Nitroglycerin (Nitro-Bid 2% Ointment) 1 inch TOP BID [facility] Last Admin: 04/08/18 08:38 Dose: 1 inch Ondansetron HCl (Zofran) 4 mg IVP Q6H PRN PRN Reason: Nausea/Vomiting
--- NOTE | 2018-04-08 13:35 | PDOC.CTH ---
<Blanca Shah - Last Filed: 04/08/18 14:33> Cardiology Progress Note - Subjective the pt seen and examined. No overnight events. No cardiac complaints. - Objective Vital Signs Temp Pulse Resp BP Pulse Ox 04/08/18 11:18 99.2 F 93 18 161/90 H 99 04/08/18 07:45 99.8 F H 96 18 164/97 H 98 04/08/18 07:39 100 04/08/18 05:28 66 04/08/18 04:40 98.8 F 66 18 183/79 H 96 Weight 185 lb 14.4 oz 04/07/18 04/08/18 04/09/18 06:59 06:59 06:59 Intake Total 1834 191 Output Total 0 Balance 1833 191 - Physical Examination General/Neuro: other: (confused) Neck: no JVD present Lungs: other: (diminished at bases) Heart: other: (irregular) Abdomen: soft Extremities: other: (No edema) - Telemetry Telemetry Rhythm: AFib - Labs Result Diagrams: 04/07/18 03:41 04/07/18 03:41 Troponin/CKMB CK-MB (CK-2) 1.2 ng/mL (0-6.6) 04/06/18 04:15 Troponin I 0.014 ng/mL (< 0.028) 04/06/18 04:15 - Assessment/Plan 1. 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 2. Afib - well controlled HR with Digoxin; start ASA 325mg qd 3. HTN - stable 4. RAMIRO - improving 5. UTI - managed by PCP 6. Anemia - no changed MAR reviewed Review of Systems - Review of Systems Constitutional: reports: no symptoms reported EENTM: reports: no symptoms reported Respiratory: reports: no symptoms reported Cardiac (ROS): reports: no symptoms reported ABD/GI: reports: no symptoms reported : reports: no symptoms reported Musculoskeletal: reports: no symptoms reported <Eliezer Leggett - Last Filed: 04/08/18 16:12> Cardiology Progress Note - Objective Vital Signs Temp Pulse Resp BP Pulse Ox 04/08/18 15:42 99.9 F H 96 20 133/91 H 100 04/08/18 11:18 99.2 F 93 18 161/90 H 99 04/08/18 07:45 99.8 F H 96 18 164/97 H 98 04/08/18 07:39 100 04/08/18 05:28 66 04/08/18 04:40 98.8 F 66 18 183/79 H 96 Weight 185 lb 14.4 oz 04/07/18 04/08/18 04/09/18 06:59 06:59 06:59 Intake Total 1834 1918 Output Total 0 Balance 1833 1918 - Labs Result Diagrams: 04/07/18 03:41 04/07/18 03:41 Troponin/CKMB CK-MB (CK-2) 1.2 ng/mL (0-6.6) 04/06/18 04:15 Troponin I 0.014 ng/mL (< 0.028) 04/06/18 04:15 - Assessment/Plan Pt. seen and eval. by me. I agree with the A/P by the CIRC[employer] MAN. He continues to have runs of SVT which are asymptomatic. I will resume a low dose of betablockers. If he continues to have episodes or has bradycardia with the betablockers then he will likely need a pacemaker if he agrees.
[2018-04-08] MEDS ORDERED: Amlodipine 5 MG TAB PO SCH (16:15)
[2018-04-08] MEDS: Metoprolol Tartrate 25 MG TAB PO SCH (17:58)
[2018-04-08] MEDS: Acetaminophen 325 MG TAB PO PRN (20:04)
[2018-04-09 04:49] LABS: #Eosinphils 0.4 thou/uL (0.0-0.7); #Lymphocytes 1.3 thou/uL (1.20-3.40); #Monocytes 1.1 thou/uL (0.11-0.59); #Neutrophils 11.6 thou/uL (1.40-6.50); %Basophils 0.1 % (0.0-1.0); %Eosinophils 2.6 % (0.0-10.0); %Lymphocytes 9.1 % (21.0-51.0); %Monocytes 7.4 % (0.0-10.0); %Neutrophils 80.8 % (42.0-75.0); Mean Corpuscular HGB CONC 32.2 g/dL (32.0-36.0); Mean Corpuscular Hemoglobin 29.5 pg (27.0-31.0); Mean Corpuscular Volume 91.7 fL (78.0-98.0); Mean Platelet Volume 9.4 fL (7.4-10.4); Platelet Count 152 thou/uL (130-400); RBC Distribution Width 14.1 % (11.5-14.5); Red Blood Cell (RBC) Count 3.37 mill/uL (4.70-6.10); White Blood Cell (WBC) Count 14.4 thou/uL (4.8-10.8)
[2018-04-09 05:10] LABS: Anion Gap 14 mmol/L (10-20); BUN (Urea Nitrogen) 21 mg/dL (8.4-25.7); Calc. Creatinine Clearance 46 mL/min (70-130); Calcium 8.7 mg/dL (7.8-10.44); Carbon Dioxide 19 mmol/L (23-31); Chloride 115 mmol/L (98-107); Estimated GFR-MDRD 46; Glucose 119 mg/dL (83-110); Potassium 3.2 mmol/L (3.5-5.1); Sodium 145 mmol/L (136-145)
[2018-04-09] MEDS: hydrALAZINE 20 MG/ML VIAL SLOW IVP PRN (05:46)
[2018-04-09] MEDS: Piperacillin/Tazobactam 2.25 GM in Sodium Chloride 0.9% 100 ML IVPB SCH ×4 (05:46→23:06)
[2018-04-09] MEDS: Sodium Chloride 0.9% 1,000 ML IV SCH (09:01)
[2018-04-09] MEDS: Nitroglycerin 2% Ointment 1 INCH/1 GM Packet TOP SCH ×2 (09:02→21:37)
[2018-04-09] MEDS: Aspirin 325 MG TAB PO SCH (09:02)
[2018-04-09] MEDS: Amlodipine 5 MG TAB PO SCH (09:02)
[2018-04-09] MEDS: Metoprolol Tartrate 25 MG TAB PO SCH ×2 (09:02→21:36)
[2018-04-09] MEDS ORDERED: Potassium Chloride 40 MEQ in Premix Bag 1 BAG IVPB SCH (09:45)
[2018-04-09] MEDS ORDERED: Potassium Chloride 40 MEQ in Sodium Chloride 0.9% 250 ML 250 ML IVPB SCH (11:00)
[2018-04-09] MEDS: Minoxidil 2.5 MG TAB PO SCH (11:16)
[2018-04-09] MEDS: Acetaminophen 325 MG TAB PO PRN (11:24)
--- NOTE | 2018-04-09 14:55 | PDOC.PN ---
- Subjective Encounter Start Date: 04/09/18 Encounter Start Time: 14:53 Subjective: feels well. able to eat better. denies any Abd pain -: Full code per discussion w pt yesterday - Objective Resuscitation Status: 04/09/18 12:05 Resuscitation Status Routine Resuscitation Status: FULL: Full Resuscitation Discussed with: per prior order MAR Reviewed: Yes Vital Signs & Weight: Vital Signs (12 hours) Temp Pulse Resp BP Pulse Ox 04/09/18 12:45 100.7 F H 76 18 152/70 H 97 04/09/18 12:02 99.6 F 96 23 H 173/100 H 99 04/09/18 09:02 89 04/09/18 07:48 99.7 F H 89 24 H 169/75 H 95 04/09/18 07:46 96 04/09/18 05:46 80 04/09/18 04:35 99.4 F 80 22 H 184/96 H 95 04/09/18 03:18 96 Weight Weight 185 lb 14.4 oz Most Recent Monitor Data Heart Rate from ECG 55 NIBP 167/64 NIBP BP-Mean 98 Respiration from ECG 14 SpO2 98 I&O: 04/08/18 04/09/18 04/10/18 06:59 06:59 06:59 Intake Total 1918 3370 Balance 1919 3370 Result Diagrams: 04/09/18 04:36 04/09/18 04:36 Additional Labs: Microbiology 04/06/18 17:40 Stool Stool Culture - Final 04/06/18 17:40 Stool Escherichia coli 0157 Culture - Final 04/06/18 17:40 Stool Campylobacter Antigen Assay - Final 04/06/18 17:40 Stool Shiga Toxin Test - Final 04/06/18 17:40 Stool C. difficile GDH Antigen & Toxins - Final 04/05/18 21:00 Urine Straight Catheter Urine Culture - Final Escherichia coli 04/05/18 21:00 Nasal swab Influenza Types A,B Direct EIA - Final 04/05/18 21:05 Venous blood - Right Hand Blood Culture - Preliminary NO GROWTH AT 48 HOURS 04/05/18 20:59 Venous blood - Left Hand Blood Culture - Preliminary NO GROWTH AT 48 HOURS Laboratory Tests 04/05/18 04/06/18 04/07/18 19:50 04:15 03:41 Creatinine 1.83 H 1.67 H 1.65 H 04/09/18 04:36 Creatinine 1.48 H Phys Exam - Physical Examination Constitutional: NAD awake and answers Qs appropriately & follows simple commands HEENT: PERRLA, moist MMs, sclera anicteric, oral pharynx no lesions Neck: no nodes, no JVD, supple, full ROM Respiratory: no wheezing, no rales, no rhonchi, clear to auscultation bilateral Cardiovascular: RRR, no significant murmur Gastrointestinal: soft, non-tender, no distention, positive bowel sounds Musculoskeletal: no edema, pulses present Neurological: non-focal, normal sensation, moves all 4 limbs Psychiatric: normal affect, A&O x 3 Skin: no rash Dx/Plan (1) Pneumatosis coli Code(s): K63.89 - OTHER SPECIFIED DISEASES OF INTESTINE Status: Acute Comment: Conservative treatment (2) UTI (urinary tract infection) Status: Acute (3) Acute kidney failure Status: Acute Comment: improving (4) Sinus pause Code(s): I45.5 - OTHER SPECIFIED HEART BLOCK Status: Acute Comment: Cont to hold Clonidine and BB (5) SIRS (systemic inflammatory response syndrome) Code(s): R65.10 - SIRS OF NON-INFECTIOUS ORIGIN W/O ACUTE ORGAN DYSFUNCTION Status: Acute (6) HTN (hypertension) Code(s): I10 - ESSENTIAL (PRIMARY) HYPERTENSION Status: Chronic (7) Macrocytic anemia Code(s): D53.9 - NUTRITIONAL ANEMIA, UNSPECIFIED Status: Chronic (8) Paroxysmal a-fib Code(s): I48.0 - PAROXYSMAL ATRIAL FIBRILLATION Status: Chronic (9) NSVT (nonsustained ventricular tachycardia) Code(s): I47.2 - VENTRICULAR TACHYCARDIA Status: Acute - Plan PT/OT, respiratory therapy, incentive spirometry, DVT proph w/heparin, DVT proph w/SCDs add DVt prophylaxis.OT/PT.OOB as tolerated.encourage ambulation -: Low dose BB and Multaq.poor candidate for PPM but wants everything -: done if needed. -: cont empiri cABx. clinically better.advance diet as tolerated -: DC haldol d/t risk of QT prolongation w Sinus pause * .OK to transfer to tele * rehab/snif eval for DC Review of Systems - Review of Systems Constitutional: negative: fever, chills, sweats, weakness, malaise, other Cardiovascular: negative: chest pain, palpitations, orthopnea, paroxysmal nocturnal dyspnea, edema, light headedness, other Gastrointestinal: negative: Nausea, Vomiting, Abdominal Pain, Diarrhea, Constipation, Melena, Hematochezia, Other Genitourinary: negative: Dysuria, Frequency, Incontinence, Hematuria, Retention , Other Other: limited due to dementia - Medications/Allergies Allergies/Adverse Reactions: Allergies Allergy/AdvReac Type Severity Reaction Status Date / Time iodine Allergy Verified 04/06/18 03:55 Medications: Current Medications Acetaminophen (Tylenol) 650 mg PO Q4H PRN PRN Reason: Headache/Fever/Mild Pain (1-3) Last Admin: 04/09/18 11:24 Dose: 650 mg Acetaminophen (Tylenol) 650 mg ND Q4H PRN PRN Reason: Headache/Fever/Mild Pain (1-3) Amlodipine Besylate (Norvasc) 5 mg PO DAILY [facility] Last Admin: 04/09/18 09:02 Dose: 5 mg Aspirin (Aspirin) 325 mg PO DAILY [facility] Last Admin: 04/09/18 09:02 Dose: 325 mg Donepezil HCl (Aricept) 10 mg PO 1700 [facility] Dronedarone (Multaq) 400 mg PO BID-[facility] Hydralazine HCl (Apresoline) 10 mg SLOW IVP Q4H PRN PRN Reason: Hypertension Last Admin: 04/09/18 05:46 Dose: 10 mg Sodium Chloride (Normal Saline 0.9%) 1,000 mls @ 75 mls/hr IV .[id number] [facility] Last Admin: 04/09/18 09:01 Dose: 1,000 mls Piperacillin Sod/Tazobactam (Sod 2.25 gm/ Sodium Chloride) 100 mls @ 200 mls/ hr IVPB Q6HR [facility] Last Admin: 04/09/18 11:16 Dose: 100 mls Potassium Chloride 40 meq/ (Sodium Chloride) 270 mls @ 67.5 mls/hr IVPB NOW [facility] Stop: 04/09/18 14:59 Last Admin: 04/09/18 11:16 Dose: 270 mls Metoprolol Tartrate (Lopressor) 12.5 mg PO BID [facility] Last Admin: 04/09/18 09:02 Dose: 12.5 mg Minoxidil (Minoxidil) 5 mg PO 1200 [facility] Last Admin: 04/09/18 11:16 Dose: 5 mg Nitroglycerin (Nitro-Bid 2% Ointment) 1 inch TOP BID [facility] Last Admin: 04/09/18 09:02 Dose: 1 inch Pantoprazole Sodium (Protonix) 40 mg PO DAILY [facility] Tamsulosin HCl (Flomax) 0.4 mg PO 1700 [facility]
[2018-04-09] MEDS: Dronedarone HCl 400 MG TAB PO SCH (17:08)
[2018-04-09] MEDS: Tamsulosin HCl 0.4 MG CAP PO SCH (17:08)
[2018-04-09] MEDS: Donepezil HCl 5 MG TAB PO SCH (17:09)
[2018-04-09] MEDS: D5 1/4 NS 1,000 ML IV SCH (17:12)
--- NOTE | 2018-04-09 19:12 | PRG ---
DATE OF SERVICE: 04/09/2018 SUBJECTIVE: Mr. Aguilar had no new problems. He is a little more alert today. OBJECTIVE: VITAL SIGNS: His temperature got up to 100.7 After lunch, heart rate 72, respiratory rate 18, oximetry 95% on room air, and blood pressure is still elevated at 171/72. LUNGS: Clear. HEART: Regular rate and rhythm. ABDOMEN: Nontender. LABORATORY DATA: White count 14.4, hemoglobin 10.0, and platelets 152. Sodium 145, potassium 3.2, chloride 115, bicarbonate 19, BUN 21, and creatinine 1.48. IMPRESSION: 1. Pneumatosis with a tender abdominal exam on admission that is resolved. 2. Hyperchloremic acidosis, likely iatrogenic . Fluids need to be adjusted and will be. 3. We will continue with antimicrobial therapy and supportive care. Marine Chronometer Assembler's input. Job ID: [id number]
--- NOTE | 2018-04-09 20:38 | EKG ---
Test Reason : STAT Blood Pressure : / mmHG Vent. Rate : 084 BPM Atrial Rate : 084 BPM P-R Int : 224 ms QRS Dur : 144 ms QT Int : 394 ms P-R-T Axes : 051 -45 096 degrees QTc Int : 465 ms Sinus rhythm with 1st degree A-V block Right bundle branch block Left anterior fascicular block Bifascicular block Left ventricular hypertrophy with repolarization abnormality Abnormal ECG When compared with ECG of 06-DEC-2016 02:10, T wave inversion no longer evident in Inferior leads T wave inversion now evident in Anterolateral leads Confirmed by YOLIS GROSS (2) on 04/09/2018 8:38:39 PM Referred By: RADHA Confirmed By:YOLIS GROSS
--- NOTE | 2018-04-09 20:39 | EKG ---
Test Reason : STAT Blood Pressure : / mmHG Vent. Rate : 100 BPM Atrial Rate : 100 BPM P-R Int : 214 ms QRS Dur : 144 ms QT Int : 400 ms P-R-T Axes : 065 -43 110 degrees QTc Int : 516 ms Sinus rhythm with 1st degree A-V block Left axis deviation Right bundle branch block Left ventricular hypertrophy with repolarization abnormality Abnormal ECG When compared with ECG of 07-APR-2018 14:50, (Unconfirmed) QT has lengthened Confirmed by YOLIS GROSS (2) on 04/09/2018 8:39:10 PM Referred By: RADHA Confirmed By:YOLIS GROSS
[2018-04-09] MEDS: Heparin 5,000 UNITS/ML VIAL SC SCH (21:36)
[2018-04-10] MEDS ORDERED: Ondansetron PF 4 MG/2 ML Vial SLOW IVP PRN (00:30)
[2018-04-10] MEDS: D5 1/4 NS 1,000 ML IV SCH ×2 (05:20→21:41)
[2018-04-10] MEDS: Piperacillin/Tazobactam 2.25 GM in Sodium Chloride 0.9% 100 ML IVPB SCH ×4 (05:20→23:32)
[2018-04-10] MEDS: Dronedarone HCl 400 MG TAB PO SCH ×2 (10:06→16:25)
[2018-04-10] MEDS: Metoprolol Tartrate 25 MG TAB PO SCH ×2 (10:06→21:41)
[2018-04-10] MEDS: Heparin 5,000 UNITS/ML VIAL SC SCH ×2 (10:09→21:41)
[2018-04-10] MEDS: Aspirin 325 MG TAB PO SCH (10:09)
[2018-04-10] MEDS: Nitroglycerin 2% Ointment 1 INCH/1 GM Packet TOP SCH ×2 (10:09→21:41)
[2018-04-10] MEDS: Amlodipine 5 MG TAB PO SCH (10:21)
[2018-04-10] MEDS ORDERED: Polyethylene Glycol 3350 17 GM Packet PO PRN (10:34)
[2018-04-10] MEDS ORDERED: Bisacodyl 10 MG SUPP PR PRN (10:34)
[2018-04-10] MEDS ORDERED: Docusate Sodium 100 MG/10 ML UDCUP PO PRN (10:34)
--- NOTE | 2018-04-10 12:06 | PDOC.CTH ---
<Blanca Shah - Last Filed: 04/10/18 12:12> Cardiology Progress Note - Subjective The pt seen and examined. No overnight events. No cardiac complaints. - Objective Vital Signs Temp Pulse Resp BP BP Pulse Ox 04/10/18 10:21 103 H 166/77 H 04/10/18 03:26 99.6 F 108 H 20 171/81 H 98 Weight 185 lb 14.4 oz 04/09/18 04/10/18 04/11/18 06:59 06:59 06:59 Intake Total 3370 1945 Balance 3370 1945 - Physical Examination Lungs: other: (diminished at bases) Heart: other: (irreguler) Abdomen: soft Extremities: other: (No edema) - Telemetry Telemetry Rhythm: Afib 100-110s - Labs Result Diagrams: 04/09/18 04:36 04/09/18 04:36 Troponin/CKMB CK-MB (CK-2) 1.2 ng/mL (0-6.6) 04/06/18 04:15 Troponin I 0.014 ng/mL (< 0.028) 04/06/18 04:15 - Assessment/Plan 1. 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 2. S/p SVTs - No more episodes since 04/08/18; On Metoprolol 12.5mg BID; cont. to monitor on tele Afib - Increase Metoprolol from 12.5 mg to 25mg BID; On Dig and ASA 325mg qd 3. HTN - Increase Metoprolol to 25mg BID. 4. RAMIRO - improving 5. UTI - managed by PCP 6. Anemia - no changed MAR reviewed Review of Systems - Review of Systems Constitutional: reports: no symptoms reported EENTM: reports: no symptoms reported Respiratory: reports: no symptoms reported Cardiac (ROS): reports: no symptoms reported ABD/GI: reports: no symptoms reported : reports: no symptoms reported <Eliezer Leggett - Last Filed: 04/10/18 20:04> Cardiology Progress Note - Objective Vital Signs Temp Pulse Pulse Pulse Resp BP BP 04/10/18 16:00 98.6 F 120 H 20 04/10/18 12:00 98.3 F 96 18 04/10/18 11:13 122 H 136 H 145/72 H 11/28/18 10:21 103 H 166/77 H 04/10/18 09:15 103 H 166/77 H BP BP Pulse Ox Pulse Ox 04/10/18 16:00 168/69 H 93 L 04/10/18 12:00 152/80 H 04/10/18 11:13 172/83 H 04/10/18 10:21 04/10/18 09:15 99 Weight 185 lb 14.4 oz 04/09/18 04/10/18 04/11/18 06:59 06:59 06:59 Intake Total 3370 1945 1250 Balance 3370 1945 1250 - Labs Result Diagrams: 04/09/18 04:36 04/09/18 04:36 Troponin/CKMB CK-MB (CK-2) 1.2 ng/mL (0-6.6) 04/06/18 04:15 Troponin I 0.014 ng/mL (< 0.028) 04/06/18 04:15 - Assessment/Plan Pt. seen and eval. by me. i agree with the S/P by the PACKING AND SHIPPING CLERK. Overall he looks better. Tolerating low dose betablockers.Continue present Tx.
[2018-04-10] MEDS ORDERED: Metoprolol Tartrate 25 MG TAB PO SCH (12:15)
--- NOTE | 2018-04-10 12:52 | PRG ---
DATE OF SERVICE: 04/09/2018 SUBJECTIVE: Mr. Aguilar is eating about 25% of his meals. The nurse states he had two small smears of bowel movements. He is not really conversant. He has significant dementia by history. OBJECTIVE: VITAL SIGNS: T-max 100.7, T-current 99, blood pressure 171/72, and pulse 72. LUNGS: Clear. Scattered rhonchi in the bases. ABDOMEN: Soft and nontender. Bowel sounds are quiescent. Abdomen is slightly protuberant. LABORATORY DATA: White count is 14.1, down from 21,000 on the ; hemoglobin is 10, and platelet count 152. Sodium 145, potassium 3.2, BUN and creatinine of 21 and 1.48. C. diff on the was negative as well as stool cultures. Blood cultures . ASSESSMENT: 1. Pneumatosis of the sigmoid and rectosigmoid colon, etiology unclear. This could be related to respiratory issues, could be related to infectious colitis or ischemic colitis. He has severe dementia and decision was made to manage in conservative nonoperative fashion. He is improving with antibiotics. Stools have been negative for Clostridium difficile. 2. Dementia. 3. CT did show soft impaction. This has been resolved by the nursing staff. Advised to continue antibiotics. Encourage the patient to eat full liquid diet, advance as tolerated. 4. Monitor electrolytes and replace as necessary. Job ID: [id number]
[2018-04-10] MEDS: Minoxidil 2.5 MG TAB PO SCH (12:59)
[2018-04-10] MEDS: Sodium Chloride 0.9% 10 ML ONE ×2 (13:00→13:08)
--- NOTE | 2018-04-10 13:03 | PDOC.PN ---
- Subjective Encounter Start Date: 04/10/18 Encounter Start Time: 13:01 Subjective: c/o nausea and very constipated per RN. no BM for few days - Objective Resuscitation Status - Order Detail: 04/09/18 12:05 Resuscitation Status Routine Resuscitation Status: FULL: Full Resuscitation Discussed with: per prior order MAR Reviewed: Yes Vital Signs & Weight: Vital Signs (12 hours) Temp Pulse Resp BP BP Pulse Ox 04/10/18 10:21 103 H 166/77 H 04/10/18 03:26 99.6 F 108 H 20 171/81 H 98 Weight Weight 185 lb 14.4 oz Most Recent Monitor Data Heart Rate from ECG 55 NIBP 167/64 NIBP BP-Mean 98 Respiration from ECG 14 SpO2 98 I&O: 04/09/18 04/10/18 04/11/18 06:59 06:59 06:59 Intake Total 3370 194 Balance 3370 194 Result Diagrams: 04/09/18 04:36 04/09/18 04:36 Radiology Reviewed by me: Yes Phys Exam - Physical Examination Constitutional: NAD HEENT: PERRLA, moist MMs, sclera anicteric, TM's clear, oral pharynx no lesions , 2+ tonsils Neck: no nodes, no JVD, supple, full ROM Respiratory: no wheezing, no rales, no rhonchi, wheezing present, clear to auscultation bilateral Cardiovascular: RRR, no significant murmur, no rub, gallop, irregular Gastrointestinal: soft, positive bowel sounds distened Musculoskeletal: no edema, pulses present Neurological: non-focal, normal sensation, moves all 4 limbs Psychiatric: normal affect, A&O x 3 Skin: no rash Dx/Plan (1) Pneumatosis coli Code(s): K63.89 - OTHER SPECIFIED DISEASES OF INTESTINE Status: Acute Comment: Conservative treatment (2) UTI (urinary tract infection) Status: Acute (3) Acute kidney failure Status: Acute Comment: improving (4) Sinus pause Code(s): I45.5 - OTHER SPECIFIED HEART BLOCK Status: Acute Comment: started on BB again due to NSVT and no more sinus pauses (5) SIRS (systemic inflammatory response syndrome) Code(s): R65.10 - SIRS OF NON-INFECTIOUS ORIGIN W/O ACUTE ORGAN DYSFUNCTION Status: Acute (6) HTN (hypertension) Code(s): I10 - ESSENTIAL (PRIMARY) HYPERTENSION Status: Chronic (7) Macrocytic anemia Code(s): D53.9 - NUTRITIONAL ANEMIA, UNSPECIFIED Status: Chronic (8) Paroxysmal a-fib Code(s): I48.0 - PAROXYSMAL ATRIAL FIBRILLATION Status: Chronic (9) NSVT (nonsustained ventricular tachycardia) Code(s): I47.2 - VENTRICULAR TACHYCARDIA Status: Acute (10) Dementia Code(s): F03.90 - UNSPECIFIED DEMENTIA WITHOUT BEHAVIORAL DISTURBANCE Status: Chronic - Plan continue antibiotics, PT/OT, respiratory therapy, incentive spirometry, out of bed/ambulate, DVT proph w/SCDs Aggressive bowel regimen.? Ileus.on IV ABx for suspected inflammtory/infect -: cont BB,multaq.Hr controlled.not candidate for OAC or PPM -: cont DVT prophylaxis.OT/PT.will start DC planning -: Hd stable.check labs in am * . Review of Systems - Review of Systems Constitutional: weakness, malaise. negative: fever, chills, sweats, other ENT: negative: Ear Pain, Ear Discharge, Nose Pain, Nose Discharge, Nose Congestion, Mouth Pain, Mouth Swelling, Throat Pain, Throat Swelling, Other Respiratory: negative: Cough, Dry, Shortness of Breath, Hemoptysis, SOB with Excertion, Pleuritic Pain, Sputum, Wheezing Cardiovascular: negative: chest pain, palpitations, orthopnea, paroxysmal nocturnal dyspnea, edema, light headedness, other Gastrointestinal: Nausea, Abdominal Pain Genitourinary: negative: Dysuria, Frequency, Incontinence, Hematuria, Retention , Other Musculoskeletal: negative: Neck Pain, Shoulder Pain, Arm Pain, Back Pain, Hand Pain, Leg Pain, Foot Pain, Other Skin: negative: Rash, Lesions, Dago, Bruising, Other Neurological: negative: Weakness, Numbness, Incoordination, Change in Speech, Confusion, Seizures, Other Other: Limited ROS due to dementia - Medications/Allergies Allergies/Adverse Reactions: Allergies Allergy/AdvReac Type Severity Reaction Status Date / Time iodine Allergy Verified 04/06/18 03:55 Medications: Current Medications Acetaminophen (Tylenol) 650 mg PO Q4H PRN PRN Reason: Headache/Fever/Mild Pain (1-3) Last Admin: 04/09/18 11:24 Dose: 650 mg Acetaminophen (Tylenol) 650 mg IA Q4H PRN PRN Reason: Headache/Fever/Mild Pain (1-3) Amlodipine Besylate (Norvasc) 5 mg PO DAILY [facility] Last Admin: 04/10/18 10:21 Dose: 5 mg Aspirin (Aspirin) 325 mg PO DAILY [facility] Last Admin: 04/10/18 10:09 Dose: 325 mg Bisacodyl (Dulcolax) 10 mg IA Q8H PRN PRN Reason: Constipation Docusate Sodium (Colace Liquid) 100 mg PO DAILY PRN PRN Reason: Constipation Donepezil HCl (Aricept) 10 mg PO 1700 [facility] Last Admin: 04/09/18 17:09 Dose: 10 mg Dronedarone (Multaq) 400 mg PO BID-[facility] Last Admin: 04/10/18 10:06 Dose: 400 mg Heparin Sodium (Porcine) (Heparin) 5,000 units SC BID [facility] Last Admin: 04/10/18 10:09 Dose: 5,000 units Hydralazine HCl (Apresoline) 10 mg SLOW IVP Q4H PRN PRN Reason: Hypertension Last Admin: 04/09/18 05:46 Dose: 10 mg Piperacillin Sod/Tazobactam (Sod 2.25 gm/ Sodium Chloride) 100 mls @ 200 mls/ hr IVPB Q6HR [facility] Last Admin: 04/10/18 13:00 Dose: 100 mls Dextrose/Sodium Chloride (D5 1/4 Ns) 1,000 mls @ 75 mls/hr IV .[id number] [facility] Last Admin: 04/10/18 05:20 Dose: 1,000 mls Metoprolol Tartrate (Lopressor) 25 mg PO BID [facility] Metoprolol Tartrate (Lopressor) 12.5 mg PO NOW [facility] Stop: 04/10/18 14:00 Minoxidil (Minoxidil) 5 mg PO 1200 [facility] Last Admin: 04/10/18 12:59 Dose: 5 mg Nitroglycerin (Nitro-Bid 2% Ointment) 1 inch TOP BID [facility] Last Admin: 04/10/18 10:09 Dose: 1 inch Ondansetron HCl (Zofran) 4 mg SLOW IVP Q4H PRN PRN Reason: Nausea/Vomiting Last Admin: 04/10/18 00:34 Dose: 4 mg Pantoprazole Sodium (Protonix) 40 mg PO DAILY [facility] Last Admin: 04/10/18 10:09 Dose: 40 mg Polyethylene Glycol (Miralax) 17 gm PO DAILYPRN PRN PRN Reason: Constipation Last Admin: 04/10/18 12:59 Dose: 17 gm Tamsulosin HCl (Flomax) 0.4 mg PO 1700 [facility] Last Admin: 04/09/18 17:08 Dose: 0.4 mg
[2018-04-10] MEDS: Donepezil HCl 5 MG TAB PO SCH (16:25)
[2018-04-10] MEDS: Tamsulosin HCl 0.4 MG CAP PO SCH (16:25)
[2018-04-11] MEDS: Piperacillin/Tazobactam 2.25 GM in Sodium Chloride 0.9% 100 ML IVPB SCH ×4 (05:25→23:32)
[2018-04-11 06:23] LABS: #Eosinphils 0.6 thou/uL (0.0-0.7); #Lymphocytes 1.3 thou/uL (1.20-3.40); #Monocytes 1.2 thou/uL (0.11-0.59); #Neutrophils 13.3 thou/uL (1.40-6.50); %Basophils 0.3 % (0.0-1.0); %Eosinophils 3.5 % (0.0-10.0); %Lymphocytes 8.1 % (21.0-51.0); %Monocytes 7.2 % (0.0-10.0); Hemoglobin 9.5 g/dL (14.0-18.0); Mean Corpuscular HGB CONC 32.6 g/dL (32.0-36.0); Mean Corpuscular Volume 92.2 fL (78.0-98.0); Mean Platelet Volume 9.7 fL (7.4-10.4); Platelet Count 170 thou/uL (130-400); RBC Distribution Width 14.2 % (11.5-14.5); Red Blood Cell (RBC) Count 3.16 mill/uL (4.70-6.10); White Blood Cell (WBC) Count 16.4 thou/uL (4.8-10.8)
[2018-04-11 06:34] LABS: Anion Gap 11 mmol/L (10-20); BUN (Urea Nitrogen) 17 mg/dL (8.4-25.7); Calc. Creatinine Clearance 47 mL/min (70-130); Calcium 8.4 mg/dL (7.8-10.44); Carbon Dioxide 21 mmol/L (23-31); Chloride 113 mmol/L (98-107); Estimated GFR-MDRD 47; Glucose 112 mg/dL (83-110); Potassium 3.2 mmol/L (3.5-5.1); Sodium 142 mmol/L (136-145)
[2018-04-11] MEDS ORDERED: Potassium Chloride 40 MEQ in Premix Bag 1 BAG IVPB SCH (09:15)
[2018-04-11] MEDS: Aspirin 325 MG TAB PO SCH (09:35)
[2018-04-11] MEDS: Dronedarone HCl 400 MG TAB PO SCH ×2 (09:35→17:44)
[2018-04-11] MEDS: Amlodipine 5 MG TAB PO SCH ×2 (09:36→09:42)
[2018-04-11] MEDS: Heparin 5,000 UNITS/ML VIAL SC SCH ×2 (09:36→20:28)
[2018-04-11] MEDS: D5 1/4 NS 1,000 ML IV SCH ×2 (09:37→20:28)
[2018-04-11] MEDS: Metoprolol Tartrate 25 MG TAB PO SCH ×2 (09:37→20:28)
[2018-04-11] MEDS: Potassium Chloride 20 MEQ in Premix Bag 1 BAG IVPB SCH ×2 (09:41→12:15)
[2018-04-11] MEDS: Nitroglycerin 2% Ointment 1 INCH/1 GM Packet TOP SCH (09:42)
[2018-04-11] MEDS: Minoxidil 2.5 MG TAB PO SCH (12:16)
--- NOTE | 2018-04-11 12:48 | PDOC.CTH ---
<Blanca Shah - Last Filed: 04/11/18 12:48> Cardiology Progress Note - Subjective The pt seen and examined. No overnight events. No cardiac complaints. - Objective Vital Signs Temp Pulse Resp BP Pulse Ox 04/11/18 09:42 68 04/11/18 09:36 68 04/11/18 08:00 98.5 F 68 17 142/65 H 93 L 04/11/18 04:00 98.5 F 92 18 156/67 H 95 Weight 185 lb 14.4 oz 04/10/18 04/11/18 04/12/18 06:59 06:59 06:59 Intake Total 1944 2119 Balance 1944 2119 - Physical Examination General/Neuro: other: (confused) Lungs: other: (diminished at bases) Heart: other: (irregular) Abdomen: soft Extremities: other: (No edema) - Labs Result Diagrams: 04/11/18 05:44 04/11/18 05:44 Troponin/CKMB CK-MB (CK-2) 1.2 ng/mL (0-6.6) 04/06/18 04:15 Troponin I 0.014 ng/mL (< 0.028) 04/06/18 04:15 - Assessment/Plan 1. SSS with hx of 2.9 sec pauses - No pauses for a few days. Cont. to monitor on tele 2. S/p SVTs - No more episodes since 04/08/18; On Metoprolol 12.5mg BID; cont. to monitor on tele 3. Afib - Well controlled HR with Metoprolol, Dig and ASA 325mg qd 4. HTN - stable. 5. RAMIRO - improving 6. UTI - managed by PCP 7. Anemia - no changed MAR reviewed Review of Systems - Review of Systems Constitutional: reports: no symptoms reported EENTM: reports: no symptoms reported Respiratory: reports: no symptoms reported Cardiac (ROS): reports: no symptoms reported ABD/GI: reports: no symptoms reported : reports: no symptoms reported <Eliezer Leggett - Last Filed: 04/11/18 17:28> Cardiology Progress Note - Objective Vital Signs Temp Pulse Resp BP Pulse Ox 04/11/18 15:12 99 F 77 17 132/62 95 04/11/18 12:00 97.8 F 71 18 132/68 94 L 04/11/18 09:42 68 04/11/18 09:36 68 04/11/18 08:00 98.5 F 68 17 142/65 H 93 L Weight 185 lb 14.4 oz 04/10/18 04/11/18 04/12/18 06:59 06:59 06:59 Intake Total 1944 2119 Balance 1944 2119 - Labs Result Diagrams: 04/11/18 05:44 04/11/18 05:44 Troponin/CKMB CK-MB (CK-2) 1.2 ng/mL (0-6.6) 04/06/18 04:15 Troponin I 0.014 ng/mL (< 0.028) 04/06/18 04:15 - Assessment/Plan Pt. seen and eval. by me.He is overall doing better. The HR is controlled. I agree with the A/P by the HOME SERVICE ADVISOR. Continue Multaq for the SVT. He seems to be tolerating well..
--- NOTE | 2018-04-11 13:11 | PDOC.PN ---
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 w/o issues -: slowly responds that he feels well & denies abd pain -: 3 BMs yesterday - Objective Resuscitation Status - Order Detail: 04/09/18 12:05 Resuscitation Status Routine Resuscitation Status: FULL: Full Resuscitation Discussed with: per prior order MAR Reviewed: Yes Vital Signs & Weight: Vital Signs (12 hours) Temp Pulse Resp BP Pulse Ox 04/11/18 09:42 68 04/11/18 09:36 68 04/11/18 08:00 98.5 F 68 17 142/65 H 93 L 04/11/18 04:00 98.5 F 92 18 156/67 H 95 Weight Weight 185 lb 14.4 oz Most Recent Monitor Data Heart Rate from ECG 55 NIBP 167/64 NIBP BP-Mean 98 Respiration from ECG 14 SpO2 98 I&O: 04/10/18 04/11/18 04/12/18 06:59 06:59 06:59 Intake Total 1944 2119 Balance 1944 2119 Result Diagrams: 04/11/18 05:44 04/11/18 05:44 Additional Labs: Microbiology 04/06/18 17:40 Stool Stool Culture - Final 04/06/18 17:40 Stool Escherichia coli 0157 Culture - Final 04/06/18 17:40 Stool Campylobacter Antigen Assay - Final 04/06/18 17:40 Stool Shiga Toxin Test - Final 04/06/18 17:40 Stool C. difficile GDH Antigen & Toxins - Final 04/05/18 21:05 Venous blood - Right Hand Blood Culture - Final NO GROWTH IN 5 DAYS 04/05/18 21:00 Urine Straight Catheter Urine Culture - Final Escherichia coli 04/05/18 21:00 Nasal swab Influenza Types A,B Direct EIA - Final 04/05/18 20:59 Venous blood - Left Hand Blood Culture - Final NO GROWTH IN 5 DAYS 04/05/18 21:05 Venous blood - Right Hand Blood Culture - Preliminary NO GROWTH AT 48 HOURS 04/05/18 20:59 Venous blood - Left Hand Blood Culture - Preliminary NO GROWTH AT 48 HOURS Laboratory Tests 04/05/18 04/06/18 04/07/18 19:50 04:15 03:41 Creatinine 1.83 H 1.67 H 1.65 H 04/09/18 04/11/18 04:36 05:44 Creatinine 1.48 H 1.44 H Phys Exam - Physical Examination Constitutional: NAD HEENT: PERRLA, moist MMs, sclera anicteric, oral pharynx no lesions Neck: no nodes, no JVD, supple, full ROM Respiratory: no wheezing, no rales, no rhonchi, clear to auscultation bilateral Cardiovascular: RRR, no significant murmur, no rub Gastrointestinal: soft, non-tender, no distention, positive bowel sounds Musculoskeletal: no edema, pulses present Neurological: non-focal, normal sensation, moves all 4 limbs Psychiatric: normal affect Skin: no rash Dx/Plan (1) Pneumatosis coli Code(s): K63.89 - OTHER SPECIFIED DISEASES OF INTESTINE Status: Acute Comment: Conservative treatment (2) UTI (urinary tract infection) Status: Acute (3) Acute kidney failure Status: Acute Comment: improving (4) Sinus pause Code(s): I45.5 - OTHER SPECIFIED HEART BLOCK Status: Acute Comment: started on BB again due to NSVT and no more sinus pauses (5) SIRS (systemic inflammatory response syndrome) Code(s): R65.10 - SIRS OF NON-INFECTIOUS ORIGIN W/O ACUTE ORGAN DYSFUNCTION Status: Acute (6) HTN (hypertension) Code(s): I10 - ESSENTIAL (PRIMARY) HYPERTENSION Status: Chronic (7) Macrocytic anemia Code(s): D53.9 - NUTRITIONAL ANEMIA, UNSPECIFIED Status: Chronic (8) Paroxysmal a-fib Code(s): I48.0 - PAROXYSMAL ATRIAL FIBRILLATION Status: Chronic (9) NSVT (nonsustained ventricular tachycardia) Code(s): I47.2 - VENTRICULAR TACHYCARDIA Status: Acute (10) Dementia Code(s): F03.90 - UNSPECIFIED DEMENTIA WITHOUT BEHAVIORAL DISTURBANCE Status: Chronic - Plan continue antibiotics, PT/OT, incentive spirometry, out of bed/ambulate, DVT proph w/SCDs Clinically improved. [place] Dc back to [facility] w PT/OT tomorrow -: recheck labs in am -: Stop NG patch & increase amlodipine for streamlining meds for DC -: on BB,Multaq by cardiology .no PPM for now.NSR maintained -: on zosyn for abd infection & UTI.cahnge to PO on Discharge * .replace and recheck potassium * acidosis improved w IVF.monitor. * OT/PT Review of Systems - Review of Systems Other: Limited due to dementia but largely denies any discomfort - Medications/Allergies Allergies/Adverse Reactions: Allergies Allergy/AdvReac Type Severity Reaction Status Date / Time iodine Allergy Verified 04/06/18 03:55 Medications: Current Medications Acetaminophen (Tylenol) 650 mg PO Q4H PRN PRN Reason: Headache/Fever/Mild Pain (1-3) Last Admin: 04/09/18 11:24 Dose: 650 mg Acetaminophen (Tylenol) 650 mg MO Q4H PRN PRN Reason: Headache/Fever/Mild Pain (1-3) Amlodipine Besylate (Norvasc) 10 mg PO DAILY [facility] Last Admin: 04/11/18 09:36 Dose: 10 mg Aspirin (Aspirin) 325 mg PO DAILY [facility] Last Admin: 04/11/18 09:35 Dose: 325 mg Bisacodyl (Dulcolax) 10 mg MO Q8H PRN PRN Reason: Constipation Docusate Sodium (Colace Liquid) 100 mg PO DAILY PRN PRN Reason: Constipation Donepezil HCl (Aricept) 10 mg PO 1700 [facility] Last Admin: 04/10/18 16:25 Dose: 10 mg Dronedarone (Multaq) 400 mg PO BID-[facility] Last Admin: 04/11/18 09:35 Dose: 400 mg Heparin Sodium (Porcine) (Heparin) 5,000 units SC BID [facility] Last Admin: 04/11/18 09:36 Dose: 5,000 units Hydralazine HCl (Apresoline) 10 mg SLOW IVP Q4H PRN PRN Reason: Hypertension Last Admin: 04/09/18 05:46 Dose: 10 mg Piperacillin Sod/Tazobactam (Sod 2.25 gm/ Sodium Chloride) 100 mls @ 200 mls/ hr IVPB Q6HR [facility] Last Admin: 04/11/18 12:14 Dose: 100 mls Dextrose/Sodium Chloride (D5 1/4 Ns) 1,000 mls @ 75 mls/hr IV .[id number] [facility] Last Admin: 04/11/18 09:37 Dose: Not Given Potassium Chloride 20 meq/ (Device) 100 mls @ 50 mls/hr IVPB 0930,1130 [facility] Stop: 04/11/18 13:29 Last Admin: 04/11/18 12:15 Dose: 100 mls Metoprolol Tartrate (Lopressor) 25 mg PO BID [facility] Last Admin: 04/11/18 09:37 Dose: 25 mg Minoxidil (Minoxidil) 5 mg PO 1200 [facility] Last Admin: 04/11/18 12:16 Dose: 5 mg Ondansetron HCl (Zofran) 4 mg SLOW IVP Q4H PRN PRN Reason: Nausea/Vomiting Last Admin: 04/10/18 00:34 Dose: 4 mg Pantoprazole Sodium (Protonix) 40 mg PO DAILY [facility] Last Admin: 04/11/18 09:36 Dose: 40 mg Polyethylene Glycol (Miralax) 17 gm PO DAILYPRN PRN PRN Reason: Constipation Last Admin: 04/10/18 12:59 Dose: 17 gm Tamsulosin HCl (Flomax) 0.4 mg PO 1700 [facility] Last Admin: 04/10/18 16:25 Dose: 0.4 mg
[2018-04-11] MEDS: Donepezil HCl 5 MG TAB PO SCH (17:44)
[2018-04-11] MEDS: Tamsulosin HCl 0.4 MG CAP PO SCH (17:44)
--- NOTE | 2018-04-11 23:37 | PRG ---
DATE OF SERVICE: SUBJECTIVE: Mr. Aguilar is resting, sitting up in bed, does not appear to be in distress. The nurse and speech pathologist note he is eating as long as someone is feeding him, which they do have set up. Nurse said he had a scant bowel movement. OBJECTIVE: VITAL SIGNS: Temperature is 99.5 max, on the it was 100.7, blood pressure is 132/62, and respiratory rate 16. LUNGS: Clear. HEART: Regular rate and rhythm. ABDOMEN: Soft. Slightly protuberant. Nontender. There is no rebound or guarding especially in the left lower quadrant. His speech is somewhat garbled. This has been baseline. LABORATORY DATA: White count 16.4, hemoglobin 9.5, and platelet count 170. Sodium 142, potassium 3.2, chloride is 113, bicarbonate is 21, BUN and creatinine are 17 and 1.4. ASSESSMENT: Pneumatosis coli of unclear etiology. It is unclear if this is related to stasis, start of an ulcer, infection or ischemic colitis. In any event he is improving with conservative management on antibiotics. He is tolerating diet. The nurse informed me he is going to to the floor tomorrow. RECOMMENDATIONS: Continue 10 days of antibiotics and then discontinue those. Keep him on a bowel regimen so he does not get constipated. MiraLax once daily could be reasonable, to be held if he has diarrhea. If I can be of further assistance in the care of this patient please contact me. Job ID: [id number]
[2018-04-12 05:16] LABS: Anion Gap 9 mmol/L (10-20); BUN (Urea Nitrogen) 18 mg/dL (8.4-25.7); Calc. Creatinine Clearance 41 mL/min (70-130); Calcium 8.5 mg/dL (7.8-10.44); Carbon Dioxide 21 mmol/L (23-31); Chloride 111 mmol/L (98-107); Estimated GFR-MDRD 40; Glucose 117 mg/dL (83-110); Potassium 3.4 mmol/L (3.5-5.1); Sodium 138 mmol/L (136-145)
[2018-04-12] MEDS: Piperacillin/Tazobactam 2.25 GM in Sodium Chloride 0.9% 100 ML IVPB SCH ×2 (06:02→12:17)
[2018-04-12] MEDS ORDERED: D5 1/4 NS 1,000 ML IV SCH (07:41)
--- NOTE | 2018-04-12 07:44 | PDOC.CTH ---
<Blanca Shah - Last Filed: 04/12/18 07:47> Cardiology Progress Note - Subjective The pt seen and examined. No overnight events. No cardiac complaints. 3+ pitting BLE edema (appreciate CTA elevated the pt's BLE) - Objective Vital Signs Temp Pulse Resp BP Pulse Ox 04/12/18 07:28 98.0 F 68 20 128/70 95 04/12/18 04:00 98.6 F 70 18 149/51 H 95 04/12/18 00:00 98.5 F 61 18 126/66 95 04/11/18 19:53 98.5 F 66 16 127/72 96 Weight 185 lb 14.4 oz 04/11/18 04/12/18 04/13/18 06:59 06:59 06:59 Intake Total 2119 1500 Balance 2119 1500 - Physical Examination Neck: no JVD present Lungs: other: (diminished at bases) Heart: RRR Abdomen: soft Extremities: other: (3+ pitting BLE edema) - Labs Result Diagrams: 04/11/18 05:44 04/12/18 04:46 Troponin/CKMB CK-MB (CK-2) 1.2 ng/mL (0-6.6) 04/06/18 04:15 Troponin I 0.014 ng/mL (< 0.028) 04/06/18 04:15 - Assessment/Plan 1. SSS with hx of 2.9 sec pauses - No pauses since last episode. Cont. to monitor on tele 2. S/p SVTs - No more episodes since 04/08/18; On Multaq and Metoprolol 12.5mg BID; cont. to monitor on tele 3. Afib - Well controlled HR with Metoprolol, Dig and ASA 325mg qd; On heparin TID 4. HTN - stable. 5. RAMIRO - improving 6. UTI - managed by PCP 7. Anemia - no changed 8. Chronic diastolic HF - decrease D5 1/4NS from 75 to 50ml/h for worsening of BLE edemas; On BBlocker, but no KHUSHBOO/ARE due to hx of CKD. MAR reviewed * From cardiac standpoint, the pt is stable to tx to NH. * The pt will f/u with Dr Leggett' office within 2 wks. If the pt cannot afford Multaq, he can submit patient support program for Multaq. Review of Systems - Review of Systems Constitutional: reports: no symptoms reported EENTM: reports: no symptoms reported Respiratory: reports: no symptoms reported Cardiac (ROS): reports: no symptoms reported ABD/GI: reports: no symptoms reported : reports: no symptoms reported Musculoskeletal: reports: no symptoms reported <Eliezer Leggett - Last Filed: 04/12/18 17:39> Cardiology Progress Note - Objective Vital Signs Temp Pulse Resp BP BP Pulse Ox 04/12/18 15:27 98.4 F 74 20 150/67 H 97 04/12/18 12:00 98.2 F 58 L 20 150/72 H 97 04/12/18 08:48 68 128/70 04/12/18 08:45 95 04/12/18 08:00 98.1 F 71 20 149/79 H 98 04/12/18 07:28 98.0 F 68 20 128/70 95 Weight 185 lb 14.4 oz 04/11/18 04/12/18 04/13/18 06:59 06:59 06:59 Intake Total 2120 1500 1250 Balance 2120 1500 1250 - Labs Result Diagrams: 04/11/18 05:44 04/12/18 04:46 Troponin/CKMB CK-MB (CK-2) 1.2 ng/mL (0-6.6) 04/06/18 04:15 Troponin I 0.014 ng/mL (< 0.028) 04/06/18 04:15
[2018-04-12] MEDS: Amlodipine 5 MG TAB PO SCH (08:48)
[2018-04-12] MEDS: Aspirin 325 MG TAB PO SCH (08:49)
[2018-04-12] MEDS: Dronedarone HCl 400 MG TAB PO SCH ×2 (08:49→16:41)
[2018-04-12] MEDS: Metoprolol Tartrate 25 MG TAB PO SCH (08:49)
[2018-04-12] MEDS: Heparin 5,000 UNITS/ML VIAL SC SCH (08:49)
[2018-04-12] MEDS: Minoxidil 2.5 MG TAB PO SCH ×2 (12:16→12:41)
[2018-04-12] MEDS ORDERED: cefTRIAXone\\ROCEPHIN 1 GM in Sodium Chloride 0.9% 100 ML IVPB SCH (13:00)
[2018-04-12] MEDS ORDERED: Potassium Chloride 20 MEQ TAB PO SCH (13:15)
[2018-04-12] MEDS ORDERED: metroNIDAZOLE 500 MG TAB PO SCH (14:00)
[2018-04-12 15:28] VITALS: BP 150/67; TEMP 98.4
[2018-04-12] MEDS: Donepezil HCl 5 MG TAB PO SCH (16:41)
[2018-04-12] MEDS: Tamsulosin HCl 0.4 MG CAP PO SCH (16:41)
--- NOTE | 2018-04-13 12:21 | DIS ---
DATE OF ADMISSION: 04/05/2018 DATE OF DISCHARGE: 04/12/2018 PRIMARY CARE PROVIDER: Luna Pink MD. DISCHARGE DIAGNOSES: 1. Sepsis. 2. Pneumatosis of the sigmoid and rectosigmoid colon. 3. Acute kidney injury. 4. Bradycardia. 5. Sinus pauses. 6. Urinary tract infection. 7. Supraventricular tachycardia. CONDITION OF THE PATIENT ON THE DAY OF DISCHARGE: Stable. I assessed Mr. Aguilar on the day of discharge. He denies any chest pain or shortness of breath. Vital signs are stable. S1 and S2 are heard, regular. Lungs are clear to auscultation bilaterally. CONSULTATIONS DURING THIS HOSPITALIZATION: 1. Cardiology, Dr. Leggett. 2. Pulmonology, Dr. Verdugo. 3. Gastroenterology, Dr. Don. DISCHARGE MEDICATIONS: 1. Artificial tears eye drops 2 drops to each eye 2 times a day. 2. Aricept 10 mg daily. 3. Lasix (furosemide) 20 mg daily. 4. Metoprolol tartrate 25 mg 2 times a day. 5. Minoxidil 5 mg daily. 6. Protonix 40 mg daily. 7. Flomax 0.4 mg daily. 8. Metronidazole 500 mg 3 times a day for 4 more days. 9. Ceftriaxone 1 g intravenously every 24 hours for 4 more days. 10. Aspirin 325 mg daily. 11. Multaq 400 mg 2 times a day. 12. MiraLax 17 g daily, not to be taken on the days when he has diarrhea. HOSPITAL COURSE: Mr. Aguilar is a pleasant 83-year-old gentleman, who was admitted to [facility] on April 06, 2018, for sepsis. Please refer to Dr. Santiago's history and physical note, dated April 06, 2018, for further details. He was seen by Pulmonology Service as well as Gastroenterology Service for pneumatosis coli. He was treated with antibiotics. He was also seen by Cardiology Service for bradycardia and sinus pauses. He was also found to have supraventricular tachycardia. He was started on Multaq. Clonidine was discontinued. Blood cultures did not show any growth. Stool studies were unremarkable. Urine culture grew Escherichia coli, that was resistant to trimethoprim/ sulfamethoxazole, but sensitive to other antibiotics. He continued to improve clinically. However, he does have acute renal insufficiency with a creatinine of 1.65. His KHUSHBOO inhibitor is on hold. His furosemide dose has also been decreased to 20 mg daily. He was advised to have his creatinine and electrolytes checked in 3 to 5 days' time. Decision can be made by primary care provider regarding resuming KHUSHBOO inhibitor as well as possibly increasing furosemide dose if necessary. On the day of discharge, Mr. Aguilar has sodium 138, potassium 3.4, which is being replaced, creatinine 1.65. White count 16,400, hemoglobin 9.5, and platelet count 170,000. Many thanks for allowing me to participate in your patient's care. Please feel free to contact me with any questions or concerns. DISCHARGE DESTINATION: [facility], from where the patient was admitted to the hospital. Total amount of time spent coordinating this discharge: 32 minutes. Job ID: [id number] MTDD
[2018-04-15] MEDS ORDERED: cloNIDine 0.3mg/24 Hour PATCH TD SCH (09:00)
== END 2018-04-12 16:54 | DRG 872 ==
LOC: ERS 18:54 → ERHOLD 22:08 → CCU 04-06 01:40 → IMCU/EMU 04-06 03:37 → 2NO 04-09 12:03 → T4-A 04-11 16:56
PROVIDERS: ADMIT Hospitalist; ATTEND Hospitalist
DX: A41.9 Sepsis, unspecified organism (principal); N17.9 Acute kidney failure, unspecified; N39.0 Urinary tract infection, site not specified; I47.2 Ventricular tachycardia; I50.32 Chronic diastolic (congestive) heart failure; D50.9 Iron deficiency anemia, unspecified; N40.0 Benign prostatic hyperplasia without lower urinary tract symptoms; K21.9 Gastro-esophageal reflux disease without esophagitis; G30.9 Alzheimer's disease, unspecified; F02.80 Dementia in other diseases classified elsewhere, unspecified severity, without behavioral disturbance, psychotic disturbance, mood disturbance, and anxiety; K63.89 Other specified diseases of intestine; R73.9 Hyperglycemia, unspecified; I45.5 Other specified heart block; I48.0 Paroxysmal atrial fibrillation; B96.20 Unspecified Escherichia coli [E. coli] as the cause of diseases classified elsewhere; I11.0 Hypertensive heart disease with heart failure; I49.5 Sick sinus syndrome
CPT/HCPCS: 36415; 51701; 71045; 74177; 80048; 80053; 80202; 81003; 81015; 82553; 83605; 83690; 83735; 84484; 85025; 87040; 87045; 87046; 87077; 87081; 87086; 87186; 87324; 87449; 87804; 87899; 93005; 93010; 93306; 96361; 96365; 96367; 96375; G8978-GP-CM; G8979-GP-CK; G8981-GP-CM; G8982-GP-CK; G8987-GO-CL; G8988-GO-CJ; G8996-GN-CL; G8997-GN-CL; J0360; J0696; J1160; J1200; J1644; J2405; J2543; J2930; J3370; J3480; J7050; S0028

== ENCOUNTER 2018-04-27 10:11 | Inpatient (IN) | payer MEDICARE, MEDICAID ==
--- NOTE | 2018-04-27 10:46 | RAD ---
RADIOGRAPH CHEST 1 VIEW: HISTORY: 83-year-old male with fever and sepsis. FINDINGS: There is cardiomegaly. There is no evidence of air space density, pulmonary edema, or pneumothorax. T he lateral costophrenic angles are sharp. IMPRESSION: 1. No acute pulmonary findings. 2. Cardiomegaly without congestive heart failure. silvestre [] POS: [facility]
--- NOTE | 2018-04-27 10:47 | CT ---
CT BRAIN NONCONTRAST: DATE: 04/27/18 TIME: 1036 hours HISTORY: 83-year-old male with altered mental status. This Level II stroke alert protocol negative report was called to Dr. Carr's extension, [id number], at 1 041 hours on 04/27/18. FINDINGS: There is no midline shift or any other mass effect. There is no evidence of acute intracranial hemor rhage, large cortical infarct, obstructive hydrocephalus, or extraaxial fluid collection. The calvar ium is intact. There is diffuse parenchymal volume loss. There are low attenuation areas in the whi te matter. These are nonspecific, but in a patient of this age, they are probably chronic ischemic w bandar matter changes due to microvascular atherosclerosis. IMPRESSION: 1. No acute intracranial findings. 2. Involutional changes and chronic ischemic white matter changes. CODE CR. jn [] POS: [facility]
[2018-04-27] MEDS ORDERED: Acetaminophen 325 MG Suppository ONE (10:48)
[2018-04-27] MEDS ORDERED: Acetaminophen 650 MG Suppository ONE (10:48)
[2018-04-27 10:57] LABS: Bilirubin Negative (Negative); Blood, Urine Negative (Negative); Clarity CLEAR (Clear); Glucose, Urine (Dipstick) Negative (Negative); Leukocyte Negative (Negative); Nitrite Negative (Negative); Protein, Urine (Dipstick) 100 mg/dL (Neg-Trace); Specific Gravity, Urine 1.017 (1.002-1.036); Urobilinogen 0.2 mg/dL (0.2-1.0)
[2018-04-27 10:58] LABS: Bacteria/HPF None Seen HPF (None Seen); Hyaline Casts/LPF 0-3 HYALINE CAST LPF (0-3 Hyaline); RBC/HPF 0-3 HPF (0-3); Squamous Epithelial 0-3 HPF (0-3); WBC/HPF 0-3 HPF (0-3)
[2018-04-27 11:12] LABS: #Eosinphils 0.1 thou/uL (0.0-0.7); #Lymphocytes 1.4 thou/uL (1.20-3.40); #Neutrophils 14.3 thou/uL (1.40-6.50); %Eosinophils 0.6 % (0.0-10.0); %Lymphocytes 8.4 % (21.0-51.0); %Monocytes 6.1 % (0.0-10.0); %Neutrophils 84.8 % (42.0-75.0); Hemoglobin 9.7 g/dL (14.0-18.0); Mean Corpuscular HGB CONC 31.9 g/dL (32.0-36.0); Mean Corpuscular Hemoglobin 29.4 pg (27.0-31.0); Mean Corpuscular Volume 92.3 fL (78.0-98.0); Mean Platelet Volume 9.3 fL (7.4-10.4); Platelet Count 178 thou/uL (130-400); RBC Distribution Width 15.6 % (11.5-14.5); Red Blood Cell (RBC) Count 3.31 mill/uL (4.70-6.10); White Blood Cell (WBC) Count 16.9 thou/uL (4.8-10.8)
[2018-04-27 11:30] LABS: ALT (SGPT) 12 U/L (8-55); AST (SGOT) 17 U/L (5-34); Albumin 3.5 g/dL (3.4-4.8); Alkaline Phosphatase 44 U/L (40-150); Anion Gap 14 mmol/L (10-20); BUN (Urea Nitrogen) 16 mg/dL (8.4-25.7); Bilirubin, Total 0.5 mg/dL (0.2-1.2); CK (CPK) 52 U/L (30-200); Calc. Creatinine Clearance 0 mL/min (70-130); Calcium 8.6 mg/dL (7.8-10.44); Carbon Dioxide 24 mmol/L (23-31); Chloride 103 mmol/L (98-107); Estimated GFR-MDRD 29; Globulin 3.1 g/dL (2.4-3.5); Glucose 101 mg/dL (83-110); Protein, Total 6.6 g/dL (5.8-8.1); Sodium 137 mmol/L (136-145)
[2018-04-27] MEDS ORDERED: Piperacillin/Tazobactam 4.5 GM VIAL ONE (11:32)
--- NOTE | 2018-04-27 13:12 | CT ---
CT ABDOMEN AND PELVIS WITHOUT CONTRAST: Date: 04/27/18 COMPARISON: 12/01/16 and 04/05/18. HISTORY: Sepsis. Fever. Altered mental status. TECHNIQUE: Multiple contiguous axial images were obtained in a CT of the abdomen and pelvis without contrast. Co arlene reformats were performed. FINDINGS: The liver, gallbladder, kidneys, adrenal glands, spleen, and pancreas are unremarkable, although eval uation is limited without IV contrast. There is prominence of the left ureter. This is seen all the w ay down to the urinary bladder and no calcifications are seen in either ureter. The large and small bowel are unremarkable. Appendix is normal. No abdominal or pelvic lymphadenopath y seen. Atherosclerotic calcifications are seen in the aorta. Degenerative changes are seen in the spine. There are very small bilateral pleural effusions and pilar cent atelectasis. The abdominal wall soft tissues are unremarkable. IMPRESSION: 1. No evidence of acute intra-abdominal/pelvic abnormality. 2. Evaluation of the colon cannot be adequately assessed without IV or enteric contrast, and the pre viously seen colitis may or may not still be present and just incompletely assessed. POS: [facility]
[2018-04-27] MEDS ORDERED: Senokot S 8.6-50 MG TAB PO PRN (13:44)
[2018-04-27] MEDS ORDERED: VANC / ABX IVPB PRN (13:47)
[2018-04-27] MEDS ORDERED: Prevnar 13-Val Conj/PF 0.5 ML SYRINGE IM ONE (15:45)
[2018-04-27] MEDS ORDERED: Cefepime 2 GM in Sodium Chloride 0.9% 100 ML IVPB SCH ×2 (16:00→21:00)
[2018-04-27] MEDS ORDERED: Piperacillin/Tazobactam 4.5 GM in Sodium Chloride 0.9% 100 ML IVPB SCH (18:00)
[2018-04-27] MEDS: Tamsulosin HCl 0.4 MG CAP PO SCH (18:14)
[2018-04-27] MEDS: Donepezil HCl 5 MG TAB PO SCH (18:14)
[2018-04-27] MEDS: Dextrose 5 % And 0.9 % NaCl 1,000 ML IV SCH (18:14)
[2018-04-27] MEDS: Piperacillin/Tazobactam 3.375 GM in Sodium Chloride 0.9% 100 ML IVPB SCH ×2 (18:27→23:46)
--- NOTE | 2018-04-27 19:56 | HP ---
CHIEF COMPLAINT: Altered mental status. HISTORY OF PRESENT ILLNESS: The patient is an 83-year-old male, who is with a history of dementia, is a longterm resident, who was brought into the hospital with the concerns for altered mentation. The patient currently is unable to provide any history. There is no family member at the bedside. All the history is obtained from the charts. Per history, I was told that the patient was recently discharged from the hospital here with ischemic colitis, who presented today with a confusion. According to the ER physician, the patient normally is able to verbalize; however, this morning, he was not very arousable. REVIEW OF SYSTEMS: Unable to obtain. The patient currently is unable to provide that. This is again per the patient's documentation since the patient is unable to provide this. PAST MEDICAL HISTORY: 1. Paroxysmal atrial fibrillation, not on any anticoagulation. 2. Hypertension. 3. Alzheimer dementia. 4. Reflux. 5. BPH. 6. History of CVA. 7. History of encephalopathy with multiple hospitalizations. 8. Chronic macrocytic anemia. PAST SURGICAL HISTORY: Unable to obtain from the patient since the patient currently is altered, and there is nothing per reviewing of the patient's documents. ALLERGIES: HE IS ALLERGIC TO IODINE, UNKNOWN REACTION. family hx: unable to obtain from pt MEDICATIONS: This is again from the patient's chart. The patient is on; 1. Aspirin 325 daily. 2. Lasix 20 mg daily. 3. Lisinopril 40 mg daily. 4. Pantoprazole 40 mg daily. 5. Metoprolol 25 mg b.i.d. 6. MiraLAX 17 g daily. 7. Minoxidil 5 mg daily. 8. Donepezil 10 mg daily. 9. Tamsulosin 0.4 mg daily. 10. Clonidine 0.3 mg transdermal once a week. SOCIAL HISTORY: Per notes, no history of smoking, alcohol, or drug use. According to the documentation, he is a full code. I will try and speak with the family to see if this is true since the patient is currently unable to provide me this information. PHYSICAL EXAMINATION: VITAL SIGNS: Temperature of 103.0, respirations were 18, 96% on room air, blood pressure 120/64, and pulse of 79. GENERAL: When I saw him, he was more awake, following some commands. CV: S1 and S2 present. No murmurs, rubs, or gallops. Irregularly irregular. LUNGS: Clear to auscultation. No rhonchi or wheezes noted. ABDOMEN: Bowel sounds are present x2. Soft. The patient does grimace a little on deep palpation of his right and left lower quadrants. EXTREMITIES: Mild lower extremities edema. SKIN: Does have some bruising to his lower extremities. Unable to see his decubitus. NEUROLOGIC: Neurological espinal, no focal deficits noted. The patient is able to move all extremities. However, oriented only to self. HEENT: The patient appears very dehydrated. Mucous membranes are very dry with some whitish discharge noted on his tongue. LABORATORY RESULTS: As of the following; WBC of 16.9, hemoglobin of 9.7, hematocrit of 30.5, and platelets of 178. I do not see any bands. He does have some neutrophilia. Chemistry; sodium of 137, potassium of 4.0, BUN of 16, and creatinine of 2.22. CRP is 8.40. ESR was normal. Urine was pretty negative. The patient did have a chest x-ray, which did not indicate any pulmonary infiltrates, just indicated cardiomegaly without congestive heart failure. CT head indicated involutional changes with chronic ischemic white matter changes. No acute intracranial findings noted. The patient also had a CT abdomen and pelvis, which indicated no evidence of acute intraabdominal abnormalities. Evaluation of colon cannot be adequately done with IV or enteric contrast, and the previously seen colitis may or may not still be present and just incompletely assessed. ASSESSMENT AND PLAN: The patient is a very pleasant 83-year-old male, who presents to the hospital with change in mental status. 1. Acute metabolic encephalopathy. Possible infectious etiology at this time. I am not sure if this patient aspirated versus if there are any other infectious processes. UA was negative. Chest x-ray, no acute abnormalities. Blood cultures are pending. The patient is more awake now. We will treat the patient with broad-spectrum antibiotics for now. We will also do a swallow eval for possible aspiration since he did start coughing when he was given some fluids in the ER orally. We will continue IV hydration and continue to monitor. will also check c diff since pt is having diarrhea. 2. History of atrial fibrillation, currently rate controlled. The patient is not on any anticoagulation. 3. Acute kidney injury and chronic kidney disease. We will continue some gentle hydration and continue to monitor. 4. Leukocytosis, most likely secondary to his underlying infection; however, upon trending, he has always been around 16 to 17, so I am not even sure if this is his baseline since on 04/05, his white count was 21,000, and when he was discharged on 04/11, it was 16.4; however, now, it is 16.9. Prior to that, his counts were completely normal. Also, we will check a TSH just to make sure that he does not have any other metabolic processes. 6. Deep venous thrombosis prophylaxis. We will put the patient on some sequential compression devices and also maybe some heparin and continue to monitor this patient. Job ID: [id number] [facility]
[2018-04-27] MEDS: Acetaminophen 650 MG Suppository PR PRN (20:25)
[2018-04-27] MEDS: Metoprolol Tartrate 25 MG TAB PO SCH (20:35)
[2018-04-27] MEDS ORDERED: Vancomycin HCl 1 GM in Premix Bag 1 BAG IVPB SCH (21:00)
[2018-04-27] MEDS: hydrALAZINE 20 MG/ML VIAL SLOW IVP PRN (22:00)
[2018-04-27] MEDS ORDERED: Labetalol HCl 100 MG/20 ML VIAL SLOW IVP PRN (23:08)
[2018-04-27] MEDS: Labetalol HCl 100 MG/20 ML VIAL SLOW IVP PRN (23:42)
[2018-04-28] MEDS: Acetaminophen 650 MG Suppository PR PRN (00:13)
[2018-04-28] MEDS: Diltiazem HCl 125 MG, Admixture Fee 1 EACH in Sodium Chloride 0.9% 100 ML IVPB SCH (02:28)
[2018-04-28 05:31] LABS: #Lymphocytes 1.3 thou/uL (1.20-3.40); #Monocytes 1.4 thou/uL (0.11-0.59); #Neutrophils 12.8 thou/uL (1.40-6.50); %Basophils 0.3 % (0.0-1.0); %Eosinophils 0.2 % (0.0-10.0); %Lymphocytes 8.2 % (21.0-51.0); %Monocytes 8.9 % (0.0-10.0); %Neutrophils 82.4 % (42.0-75.0); Mean Corpuscular HGB CONC 31.7 g/dL (32.0-36.0); Mean Corpuscular Volume 91.6 fL (78.0-98.0); Mean Platelet Volume 9.5 fL (7.4-10.4); Platelet Count 176 thou/uL (130-400); RBC Distribution Width 15.7 % (11.5-14.5); Red Blood Cell (RBC) Count 3.44 mill/uL (4.70-6.10); White Blood Cell (WBC) Count 15.6 thou/uL (4.8-10.8)
[2018-04-28 05:38] LABS: Anion Gap 12 mmol/L (10-20); BUN (Urea Nitrogen) 18 mg/dL (8.4-25.7); Calc. Creatinine Clearance 34 mL/min (70-130); Calcium 8.5 mg/dL (7.8-10.44); Carbon Dioxide 23 mmol/L (23-31); Chloride 109 mmol/L (98-107); Estimated GFR-MDRD 31; Glucose 121 mg/dL (83-110); Potassium 3.1 mmol/L (3.5-5.1); Sodium 141 mmol/L (136-145)
[2018-04-28] MEDS ORDERED: Potassium Chloride 20 MEQ TAB PO SCH (06:00)
[2018-04-28] MEDS: Dextrose 5 % And 0.9 % NaCl 1,000 ML IV SCH (06:06)
[2018-04-28] MEDS ORDERED: Enoxaparin Sodium 40 MG/0.4 ML SYRINGE SC SCH (09:00)
[2018-04-28] MEDS ORDERED: Famotidine 20 MG TAB PO SCH (09:00)
[2018-04-28] MEDS: Potassium Chloride 10 MEQ in Premix Bag 1 BAG IVPB SCH ×4 (09:32→14:12)
[2018-04-28] MEDS: Heparin 5,000 UNITS/ML VIAL SC SCH ×2 (09:32→21:58)
[2018-04-28] MEDS: Polyethylene Glycol 3350 17 GM Packet PO SCH (09:32)
[2018-04-28] MEDS: Vancomycin HCl 25 MG/ML Oral PO SCH ×4 (09:33→21:58)
[2018-04-28] MEDS: Metoprolol Tartrate 25 MG TAB PO SCH ×2 (09:36→21:58)
[2018-04-28] MEDS: Aspirin 325 MG TAB PO SCH (09:36)
[2018-04-28] MEDS: Minoxidil 10 MG TAB PO SCH (11:03)
[2018-04-28] MEDS ORDERED: Acetaminophen 1,000 MG in Premix Bag 1 BAG IVPB PRN (11:44)
[2018-04-28] MEDS ORDERED: Vancomycin HCl 750 MG in Sodium Chloride 0.9% 250 ML 250 ML IVPB SCH (12:00)
[2018-04-28] MEDS ORDERED: Vancomycin HCl 1 GM in Premix Bag 1 BAG IVPB SCH (12:00)
--- NOTE | 2018-04-28 13:06 | PDOC.PN ---
- Subjective Encounter Start Date: 04/28/18 Encounter Start Time: 13:04 Subjective: very sick, febrile, shivering and cold, uncontrolled diarrhea - Objective Resuscitation Status - Order Detail: 04/27/18 13:44 Resuscitation Status Routine Resuscitation Status: FULL: Full Resuscitation MAR Reviewed: Yes Vital Signs & Weight: Vital Signs (12 hours) Temp Pulse Resp BP Pulse Ox 04/28/18 11:00 100.9 F H 104 H 18 132/62 95 04/28/18 08:20 94 L 04/28/18 08:00 99.3 F 112 H 18 131/60 94 L 04/28/18 03:41 98.3 F 110 H 20 135/63 94 L Weight Weight 189 lb I&O: 04/27/18 04/28/18 04/29/18 06:59 06:59 06:59 Intake Total 1050 Balance 1050 Result Diagrams: 04/28/18 04:36 04/28/18 04:36 Phys Exam - Physical Examination HEENT: PERRLA, moist MMs, sclera anicteric, TM's clear, oral pharynx no lesions , 2+ tonsils Neck: no nodes, no JVD, supple, full ROM Respiratory: no wheezing, no rales Cardiovascular: RRR, no significant murmur Gastrointestinal: soft, non-tender, no distention Musculoskeletal: edema present Neurological: non-focal, normal sensation, moves all 4 limbs Psychiatric: normal affect, A&O x 3 Dx/Plan (1) C. difficile colitis Status: Acute Comment: oral vancomycin (2) Paroxysmal a-fib Code(s): I48.0 - PAROXYSMAL ATRIAL FIBRILLATION Status: Chronic (3) Physical deconditioning Code(s): R53.81 - OTHER MALAISE Status: Chronic (4) UTI (urinary tract infection) Status: Acute Qualifiers: Urinary tract infection type: acute cystitis Hematuria presence: without hematuria Qualified Code(s): N30.00 - Acute cystitis without hematuria Comment: pending sensitivities, enterococcus positive, start Rocephin - Plan cont current plan of care * .
[2018-04-28] MEDS ORDERED: Potassium Chloride 10 MEQ in Premix Bag 1 BAG IVPB SCH (13:30)
[2018-04-28] MEDS: cefTRIAXone\\ROCEPHIN 2 GM in Sodium Chloride 0.9% 100 ML IVPB SCH (15:38)
[2018-04-28] MEDS: Tamsulosin HCl 0.4 MG CAP PO SCH (17:23)
[2018-04-28] MEDS: Donepezil HCl 5 MG TAB PO SCH (17:23)
[2018-04-28] MEDS ORDERED: Cefepime 1 GM in Sodium Chloride 0.9% 100 ML IVPB SCH (21:00)
[2018-04-29] MEDS: Dextrose 5 % And 0.9 % NaCl 1,000 ML IV SCH ×2 (00:37→09:59)
[2018-04-29] MEDS: Diltiazem HCl 125 MG, Admixture Fee 1 EACH in Sodium Chloride 0.9% 100 ML IVPB SCH ×2 (04:09→18:04)
[2018-04-29] MEDS ORDERED: Labetalol HCl 100 MG/20 ML VIAL ONE (08:57)
[2018-04-29] MEDS: Labetalol HCl 100 MG/20 ML VIAL SLOW IVP PRN (08:58)
[2018-04-29] MEDS: Metoprolol Tartrate 25 MG TAB PO SCH ×2 (09:58→21:05)
[2018-04-29] MEDS: Heparin 5,000 UNITS/ML VIAL SC SCH ×2 (09:58→21:05)
[2018-04-29] MEDS: Aspirin 325 MG TAB PO SCH (09:58)
[2018-04-29] MEDS: Vancomycin HCl 25 MG/ML Oral PO SCH ×4 (09:59→21:06)
[2018-04-29] MEDS: Polyethylene Glycol 3350 17 GM Packet PO SCH (10:21)
[2018-04-29] MEDS: Minoxidil 10 MG TAB PO SCH (12:32)
--- NOTE | 2018-04-29 13:52 | PQF ---
AMANDASTEVEN JARA [id number] CLINICAL DOCUMENTATION IMPROVEMENT CLARIFICATION FORM: ICD-10 Updated PLEASE DO AN ADDENDUM TO THE PROGRESS NOTE WITH ANY DOCUMENTATION UPDATES OR ADDITIONS AND CARRY THROUGH TO DC SUMMARY. THANK YOU. DATE: 04/29, , , , ATTN: DR. STEVEN MASON / DR. Kathryn KENNEDY Please exercise your independent, professional judgment in responding to the clarification form. Clinical indicators are provided on the bottom of this form for your review. Please check appropriate box(es): [ x ] Sepsis due to: (Pna, UTI, gangrenous gall bladder, etc.) [ ] Severe sepsis with acute organ dysfunction of: (Examples: respiratory failure, encephalopathy, acute kidney failure, other) [ ] Localized infection without sepsis [ ] Other diagnosis [ ] Unable to determine For continuity of documentation, please document condition throughout progress notes and discharge summary. Thank You. CLINICAL INDICATORS - SIGNS / SYMPTOMS / LABS ER REPORT 04/27: SEPSIS ALERT T: 103.0 RR: 22 ND: 147 AMS TRT: 3L NS, IV VANC & ZOSYN FINAL: SEPSIS WBC 16.9 CRP 8.40 H&P 04/27 (DON): ASSESSMENT/PLAN: 1) ACUTE METABOLIC ENCEPHALOPATHY PN 04/28 (ISABELLA): DX/PLAN: 1) C. DIFFICILE COLITIS; 4) UTI, ACUTE ( ENTEROCOCCUS POSITIVE) URINE CX: ENTEROCOCCUS FAECALIS RISK FACTORS: RECENT SEPSIS (MAR 2018) C DIFF COLITIS UTI (ENTEROCOCCUS) TREATMENTS: PO VANCOMYCIN (04/28 - PRESENT) IV ANTIBIOTIC (ROCEPHIN 04/28 - PRESENT; VANCOMYCIN & ZOSYN IN ED) IVF (D5 NS106/28 - PRESENT; 3L NS IN ED) THANK YOU! Sherrie (This form is maintained as a part of the permanent medical record) 2014 [employer]. All Rights Reserved Sherrie Beltran RN, BSN [email or web address] Office: [phone] [facility]
[2018-04-29] MEDS: cefTRIAXone\\ROCEPHIN 2 GM in Sodium Chloride 0.9% 100 ML IVPB SCH (14:15)
--- NOTE | 2018-04-29 15:11 | PDOC.PN ---
- Subjective Encounter Start Date: 04/29/18 Encounter Start Time: 15:09 Subjective: Afib with rvr, code green initiated. -: Responded to Cardizem and Labetolol IV X 1 -: decreased diarrhea, on oral Vanc with CDiff - Objective Resuscitation Status - Order Detail: 04/27/18 13:44 Resuscitation Status Routine Resuscitation Status: FULL: Full Resuscitation MAR Reviewed: Yes Vital Signs & Weight: Vital Signs (12 hours) Temp Temp Pulse Pulse Pulse Resp Resp 04/29/18 12:05 99.5 F 75 18 04/29/18 08:58 130 H 04/29/18 08:53 96.2 F L 137 H 96 20 04/29/18 07:31 04/29/18 07:23 96.2 F L 130 H 20 04/29/18 04:00 98.9 F 70 20 Resp BP BP BP Pulse Ox Pulse Ox Pulse Ox 04/29/18 12:05 142/99 H 94 L 04/29/18 08:58 04/29/18 08:53 20 223/93 H 121/79 91 L 96 04/29/18 07:31 94 L 04/29/18 07:23 169/103 H 94 L 04/29/18 04:00 131/60 94 L Weight Weight 182 lb 4 oz I&O: 04/28/18 04/29/18 04/30/18 06:59 06:59 06:59 Intake Total 1050 2180 Balance 1050 2180 Result Diagrams: 04/28/18 04:36 04/28/18 04:36 Additional Labs: Accuchecks 04/29/18 08:58 POC Glucose 111 H Phys Exam - Physical Examination HEENT: PERRLA, moist MMs, sclera anicteric, TM's clear, oral pharynx no lesions , 2+ tonsils Neck: no nodes, no JVD, supple, full ROM Respiratory: no wheezing, no rales Cardiovascular: irregular Gastrointestinal: soft, non-tender, no distention, positive bowel sounds Musculoskeletal: edema present Neurological: non-focal, normal sensation, moves all 4 limbs Deviation from normal: flat affect, oriented x 1 Dx/Plan (1) C. difficile colitis Status: Acute Comment: oral vancomycin (2) Paroxysmal a-fib Code(s): I48.0 - PAROXYSMAL ATRIAL FIBRILLATION Status: Chronic (3) Physical deconditioning Code(s): R53.81 - OTHER MALAISE Status: Chronic (4) UTI (urinary tract infection) Status: Acute Qualifiers: Urinary tract infection type: acute cystitis Hematuria presence: without hematuria Qualified Code(s): N30.00 - Acute cystitis without hematuria Comment: enterococcus positive, continue Rocephin - Plan cont current plan of care, continue antibiotics, PT/OT * .
[2018-04-29 16:05] VITALS: BMI 29.0
[2018-04-29 16:49] LABS: Potassium 3.3 mmol/L (3.5-5.1)
[2018-04-29] MEDS: Tamsulosin HCl 0.4 MG CAP PO SCH (17:18)
[2018-04-29] MEDS: Donepezil HCl 5 MG TAB PO SCH (17:18)
--- NOTE | 2018-04-29 17:25 | EKG ---
Test Reason : CODE GREEN Blood Pressure : / mmHG Vent. Rate : 094 BPM Atrial Rate : 136 BPM P-R Int : 000 ms QRS Dur : 108 ms QT Int : 380 ms P-R-T Axes : 000 000 227 degrees QTc Int : 475 ms Atrial fibrillation with premature ventricular or aberrantly conducted complexes and occasional pac ed complexes noted. Prolonged QT Abnormal ECG When compared with ECG of 27-APR-2018 14:11, (Unconfirmed) Atrial fibrillation has replaced Electronic ventricular pacemaker Vent. rate has decreased BY 55 BPM Confirmed by FREDY LÓPEZ ([id number]) on 04/29/2018 5:25:33 PM Referred By: SAMPSON Confirmed By:FREDY LÓPEZ
[2018-04-29] MEDS ORDERED: Furosemide 20 MG/2 ML VIAL SLOW IVP SCH (18:00)
[2018-04-29] MEDS ORDERED: Potassium Chloride 20 MEQ TAB PO SCH (18:00)
[2018-04-29] MEDS: hydrALAZINE 20 MG/ML VIAL SLOW IVP PRN (18:16)
[2018-04-29] MEDS: Acetaminophen 325 MG TAB PO PRN (19:10)
--- NOTE | 2018-04-29 19:30 | PDOC.EVN ---
Event Note - Event Note Event Note: Code Green called for tachycardia, tachypnea, fever. Physical exam notable for tachycardia and expiratory wheeze. Check chest x-ray, administer DuoNebs. Repeat blood cultures drawn (pt has a UTI and C. difficile infection). 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
--- NOTE | 2018-04-29 20:59 | RAD ---
PORTABLE CHEST: 04/29/2018 PROVIDED CLINICAL HISTORY: Code green. COMPARISON: 04/27/2018 FINDINGS: The cardiac and mediastinal silhouette are unchanged in appearance. Prominence of the pulmonary inte rstitium is again seen. Vascular calcification is noted. No focal consolidation, pleural fluid, or pneumothorax apparent. IMPRESSION: Stable radiographic appearance of the chest. POS: [facility]
[2018-04-30 05:35] LABS: Anion Gap 12 mmol/L (10-20); BUN (Urea Nitrogen) 12 mg/dL (8.4-25.7); Calc. Creatinine Clearance 42 mL/min (70-130); Calcium 8.4 mg/dL (7.8-10.44); Carbon Dioxide 21 mmol/L (23-31); Chloride 116 mmol/L (98-107); Estimated GFR-MDRD 41; Glucose 111 mg/dL (83-110); Magnesium 2.1 mg/dL (1.6-2.6); Potassium 3.4 mmol/L (3.5-5.1); Sodium 146 mmol/L (136-145)
[2018-04-30] MEDS: Diltiazem HCl 125 MG, Admixture Fee 1 EACH in Sodium Chloride 0.9% 100 ML IVPB SCH (06:09)
[2018-04-30] MEDS: Heparin 5,000 UNITS/ML VIAL SC SCH ×2 (08:54→20:34)
[2018-04-30] MEDS: Metoprolol Tartrate 25 MG TAB PO SCH ×2 (08:54→20:34)
[2018-04-30] MEDS: Aspirin 325 MG TAB PO SCH (08:54)
[2018-04-30] MEDS: Vancomycin HCl 25 MG/ML Oral PO SCH ×4 (08:55→20:34)
[2018-04-30] MEDS: Polyethylene Glycol 3350 17 GM Packet PO SCH (08:55)
[2018-04-30] MEDS ORDERED: Potassium Chloride 20 MEQ TAB PO SCH (11:30)
[2018-04-30] MEDS ORDERED: Dronedarone HCl 400 MG TAB PO SCH (12:00)
[2018-04-30] MEDS: Minoxidil 10 MG TAB PO SCH (12:19)
--- NOTE | 2018-04-30 12:21 | PRG ---
DATE OF SERVICE: 04/30/2018 SUBJECTIVE: The patient is seen and examined at bedside. He just had physical therapy working with him and his heart rate went up to 107 during this session, now he is sitting in his bed and resting. OBJECTIVE: VITAL SIGNS: Blood pressure is 149/75, pulse is 71, temperature is 99.3, maximal temperature is 101.2, and pulse oximetry 99%. HEENT: Eyes are PERRLA. Sclerae nonicteric. Oral mucosa is moist. NECK: Supple. No JVDs. LUNGS: Breath sounds diminished at both bases. Few crackles bilaterally. HEART: S1 and S2, irregularly irregular. No S3. No S4. Somewhat distant. ABDOMEN: Soft, obese, and nontender. EXTREMITIES: 1+ peripheral edema similar bilaterally. NEUROLOGIC: He is alert and oriented x3. There are no any motor deficits present. Cranial nerves are intact. LABORATORY DATA: Labs showed sodium of 146, potassium 3.4, chloride of 116, CO2 of 21, BUN 12, creatinine 1.62, glucose 111, calcium 8.4, and magnesium 2.1. IMPRESSION: 1. Clostridium difficile colitis, on oral vancomycin. We will continue the treatment. 2. Paroxysmal atrial fibrillation. He converted to normal sinus rhythm with PVCs and PACs this morning. We will start him on Multaq, his home medications, and then we are going to gradually taper and wean him off his Cardizem drip. 3. Hypokalemia, to be replaced. 4. Hypernatremia and hyperchloremia. We will encourage p.o. oral intake of fluids. 5. Acute cystitis with Enterococcus. The patient is on Rocephin. We will continue treatment. 6. Physical deconditioning. 7. The chest x-ray obtained yesterday showed some increased pulmonary congestion. We will obtain BMP on him today and do echocardiogram to assess his left ventricular ejection fraction. We will continue his aspirin 325 mg daily and we will discuss with him possibility to be on anticoagulants. Job ID: [id number]
--- NOTE | 2018-04-30 13:33 | EKG ---
Test Reason : Blood Pressure : / mmHG Vent. Rate : 149 BPM Atrial Rate : 133 BPM P-R Int : 000 ms QRS Dur : 150 ms QT Int : 350 ms P-R-T Axes : 000 -60 106 degrees QTc Int : 551 ms Wide QRS tachycardia with occasional ventricular-paced complexes Right bundle branch block Left anterior fascicular block Bifascicular block Left ventricular hypertrophy with repolarization abnormality Abnormal ECG Confirmed by BLAKE DONOVAN, MARISOL ([id number]), editor news CESAR OTERO ([id number]) on 04/30/2018 1:32:57 PM Referred By: Confirmed By:MARISOL LOZANO MD
--- NOTE | 2018-04-30 13:33 | EKG ---
Test Reason : Blood Pressure : / mmHG Vent. Rate : 087 BPM Atrial Rate : 066 BPM P-R Int : 000 ms QRS Dur : 124 ms QT Int : 420 ms P-R-T Axes : 000 -51 053 degrees QTc Int : 505 ms Atrial fibrillation Right bundle branch block Left anterior fascicular block Bifascicular block Moderate voltage criteria for LVH, may be normal variant Abnormal ECG Confirmed by BLAKE DONOVAN, MARISOL ([id number]), video editor CESAR OTERO ([id number]) on 04/30/2018 1:32:54 PM Referred By: Confirmed By:MARISOL LOZANO MD
[2018-04-30] MEDS: cefTRIAXone\\ROCEPHIN 2 GM in Sodium Chloride 0.9% 100 ML IVPB SCH (14:20)
[2018-04-30] MEDS: Dronedarone HCl 400 MG TAB PO SCH (16:28)
[2018-04-30] MEDS: Tamsulosin HCl 0.4 MG CAP PO SCH (16:28)
[2018-04-30] MEDS: Donepezil HCl 5 MG TAB PO SCH (16:28)
[2018-05-01] MEDS ORDERED: Ondansetron PF 4 MG/2 ML Vial IVP PRN (00:30)
[2018-05-01 05:41] LABS: #Lymphocytes 1.3 thou/uL (1.20-3.40); #Monocytes 0.8 thou/uL (0.11-0.59); %Basophils 0.1 % (0.0-1.0); %Eosinophils 10.7 % (0.0-10.0); %Lymphocytes 13.9 % (21.0-51.0); %Monocytes 8.7 % (0.0-10.0); %Neutrophils 66.5 % (42.0-75.0); Hemoglobin 8.3 g/dL (14.0-18.0); Mean Corpuscular HGB CONC 31.9 g/dL (32.0-36.0); Mean Corpuscular Hemoglobin 29.2 pg (27.0-31.0); Mean Corpuscular Volume 91.4 fL (78.0-98.0); Platelet Count 152 thou/uL (130-400); RBC Distribution Width 15.9 % (11.5-14.5); Red Blood Cell (RBC) Count 2.84 mill/uL (4.70-6.10)
[2018-05-01 05:54] LABS: Anion Gap 12 mmol/L (10-20); BUN (Urea Nitrogen) 14 mg/dL (8.4-25.7); Calc. Creatinine Clearance 44 mL/min (70-130); Calcium 8.6 mg/dL (7.8-10.44); Carbon Dioxide 20 mmol/L (23-31); Chloride 117 mmol/L (98-107); Estimated GFR-MDRD 43; Glucose 119 mg/dL (83-110); Potassium 3.7 mmol/L (3.5-5.1); Sodium 145 mmol/L (136-145)
[2018-05-01] MEDS: Aspirin 325 MG TAB PO SCH (09:04)
[2018-05-01] MEDS: Metoprolol Tartrate 25 MG TAB PO SCH ×2 (09:04→20:01)
[2018-05-01] MEDS: Dronedarone HCl 400 MG TAB PO SCH ×2 (09:05→17:16)
[2018-05-01] MEDS: Polyethylene Glycol 3350 17 GM Packet PO SCH (09:05)
[2018-05-01] MEDS: Heparin 5,000 UNITS/ML VIAL SC SCH ×2 (09:05→20:01)
[2018-05-01] MEDS: Vancomycin HCl 25 MG/ML Oral PO SCH ×4 (09:05→20:01)
--- NOTE | 2018-05-01 13:14 | PRG ---
DATE OF SERVICE: 05/01/2018 SUBJECTIVE: The patient is seen and examined at the bedside. He answers my questions with very short sentences or just words. He is kind of slow in response, and he is getting fed by the loan officer assistant. OBJECTIVE: VITAL SIGNS: Blood pressure is 146/83, pulse is 72, temperature is 98.8, respiratory rate is 20, and O2 saturation is 92% on room air. HEENT: His head is atraumatic and normocephalic. Eyes are PERRLA. Sclerae are nonicteric. Oral mucosa is slightly dry. NECK: Supple. LUNGS: Breath sounds with few crackles bilaterally at both bases. No wheezing. No rales. HEART: S1 and S2. Irregularly irregular. No S3. No S4. ABDOMEN: Soft, nontender, and nondistended. Bowel sounds are present. No organomegaly. EXTREMITIES: 1+ peripheral edema similar bilaterally. NEUROLOGICAL: He is alert and oriented x2. There is no any motor or sensory deficits present. Cranial nerves are intact. LABORATORY DATA: White count of 9.0, hemoglobin 8.3, hematocrit 26.0, and platelet count 152,000. The patient with sodium of 145, potassium 3.7, chloride 117, CO2 of 20, BUN 14, and creatinine 1.55, glycemia is ranging from 111 to 121, calcium 8.6. Yesterday, BNP was 531.2. Magnesium 2.1. IMPRESSION AND PLAN: 1. Clostridium difficile colitis, on oral vancomycin. The patient did not have any bowel movement and today, it looks like he is responding to the treatment. The number of bowel movements significantly diminished. 2. Paroxysmal atrial fibrillation. He is converted to normal sinus rhythm with premature atrial contractions and some premature ventricular contractions from time to time. He was started on Multaq yesterday, thus his normal home medications and his Cardizem drip was weaned off. 3. Hypokalemia, replaced. 4. Hypernatremia and hyperchloremia, partially improved. 5. Acute cystitis with Enterococcus. The patient is on Rocephin. 6. Physical deconditioning. 7. Elevated BNP, suggestive of some congestive heart failure. We will obtain echocardiogram, and we will continue his aspirin for antiplatelet effect. Also, I will restart his furosemide for diuretic effect since he has some bilateral crackles at both bases. Job ID: [id number]
[2018-05-01] MEDS: Minoxidil 10 MG TAB PO SCH (14:00)
[2018-05-01] MEDS: cefTRIAXone\\ROCEPHIN 2 GM in Sodium Chloride 0.9% 100 ML IVPB SCH (14:01)
[2018-05-01] MEDS: Furosemide 20 MG TAB PO SCH (14:01)
[2018-05-01] MEDS: Tamsulosin HCl 0.4 MG CAP PO SCH (17:15)
[2018-05-01] MEDS: Donepezil HCl 5 MG TAB PO SCH (17:16)
[2018-05-02] MEDS: Aspirin 325 MG TAB PO SCH (08:16)
[2018-05-02] MEDS: Metoprolol Tartrate 25 MG TAB PO SCH ×2 (08:16→21:32)
[2018-05-02] MEDS: Dronedarone HCl 400 MG TAB PO SCH ×2 (08:16→17:49)
[2018-05-02] MEDS: Furosemide 20 MG TAB PO SCH ×2 (08:16→14:07)
[2018-05-02] MEDS: Potassium Chloride 20 MEQ TAB PO SCH (08:16)
[2018-05-02] MEDS: Heparin 5,000 UNITS/ML VIAL SC SCH ×2 (08:17→21:32)
[2018-05-02] MEDS: Polyethylene Glycol 3350 17 GM Packet PO SCH (08:17)
[2018-05-02] MEDS: Vancomycin HCl 25 MG/ML Oral PO SCH ×4 (09:13→21:33)
[2018-05-02] MEDS: hydrALAZINE 20 MG/ML VIAL SLOW IVP PRN (09:32)
[2018-05-02] MEDS: Minoxidil 10 MG TAB PO SCH (11:36)
--- NOTE | 2018-05-02 13:56 | PDOC.PN ---
- Subjective Encounter Start Date: 05/02/18 Encounter Start Time: 13:54 -: non-verbal Subjective: Looks comfortable - Objective Resuscitation Status - Order Detail: 04/27/18 13:44 Resuscitation Status Routine Resuscitation Status: FULL: Full Resuscitation Vital Signs & Weight: Vital Signs (12 hours) Temp Pulse Resp BP BP Pulse Ox 05/02/18 11:43 97.7 F 79 15 129/59 L 94 L 05/02/18 09:32 187/90 H 05/02/18 08:10 95 05/02/18 07:35 98.9 F 80 18 186/89 H 95 05/02/18 03:52 162/76 H 05/02/18 03:46 97.5 F L 72 20 193/80 H 96 Weight Weight 186 lb 8 oz I&O: 05/01/18 05/02/18 05/03/18 06:59 06:59 06:59 Intake Total 1080 460 Balance 1080 460 Result Diagrams: 05/01/18 05:05 05/01/18 05:05 Phys Exam - Physical Examination HEENT: PERRLA, moist MMs, sclera anicteric, TM's clear, oral pharynx no lesions , 2+ tonsils Neck: no nodes, no JVD, supple, full ROM Respiratory: no wheezing, no rales Cardiovascular: no significant murmur, no rub, irregular Gastrointestinal: soft, non-tender, no distention, positive bowel sounds Musculoskeletal: edema present Neurological: non-focal, moves all 4 limbs Deviation from normal: Normal affect, responds with gestures minimally but appropriately. Skin: no rash, normal turgor Dx/Plan (1) C. difficile colitis Status: Acute Comment: oral vancomycin (2) Paroxysmal a-fib Code(s): I48.0 - PAROXYSMAL ATRIAL FIBRILLATION Status: Chronic (3) Physical deconditioning Code(s): R53.81 - OTHER MALAISE Status: Chronic (4) UTI (urinary tract infection) Status: Acute Qualifiers: Urinary tract infection type: acute cystitis Hematuria presence: without hematuria Qualified Code(s): N30.00 - Acute cystitis without hematuria Comment: enterococcus positive, continue Rocephin - Plan cont current plan of care, PT/OT, social worker school, speech therapy, DVT proph w/ SCDs * .
[2018-05-02] MEDS: cefTRIAXone\\ROCEPHIN 2 GM in Sodium Chloride 0.9% 100 ML IVPB SCH (14:06)
[2018-05-02] MEDS: Donepezil HCl 5 MG TAB PO SCH (17:49)
[2018-05-02] MEDS: Tamsulosin HCl 0.4 MG CAP PO SCH (17:49)
[2018-05-03] MEDS ORDERED: Clopidogrel Bisulfate 75 MG TAB ONE (08:11)
[2018-05-03] MEDS: Vancomycin HCl 25 MG/ML Oral PO SCH ×4 (09:41→20:42)
[2018-05-03] MEDS: Furosemide 20 MG TAB PO SCH ×2 (09:41→15:32)
[2018-05-03] MEDS: Acetaminophen 325 MG TAB PO PRN ×2 (09:41→20:41)
[2018-05-03] MEDS: Metoprolol Tartrate 25 MG TAB PO SCH ×2 (09:41→20:40)
[2018-05-03] MEDS: Dronedarone HCl 400 MG TAB PO SCH ×2 (09:41→16:16)
[2018-05-03] MEDS: Heparin 5,000 UNITS/ML VIAL SC SCH ×2 (09:42→20:42)
[2018-05-03] MEDS: Polyethylene Glycol 3350 17 GM Packet PO SCH (09:42)
[2018-05-03] MEDS: Aspirin 325 MG TAB PO SCH (09:42)
[2018-05-03] MEDS: Potassium Chloride 20 MEQ TAB PO SCH (09:42)
[2018-05-03] MEDS: Minoxidil 10 MG TAB PO SCH (12:02)
--- NOTE | 2018-05-03 15:27 | PDOC.PN ---
- Subjective Encounter Start Date: 05/03/18 Encounter Start Time: 15:25 Subjective: complaining of neck pain - Objective Resuscitation Status - Order Detail: 04/27/18 13:44 Resuscitation Status Routine Resuscitation Status: FULL: Full Resuscitation MAR Reviewed: Yes Vital Signs & Weight: Vital Signs (12 hours) Temp Pulse Pulse Resp BP BP Pulse Ox 05/03/18 12:02 98.7 F 99 20 141/80 H 92 L 05/03/18 11:15 82 142/80 H 05/03/18 07:35 98.6 F 81 18 135/81 94 L Pulse Ox 05/03/18 12:02 05/03/18 11:15 92 L 05/03/18 07:35 Weight Weight 183 lb I&O: 05/02/18 05/03/18 05/04/18 06:59 06:59 06:59 Intake Total 460 1490 Balance 460 1490 Result Diagrams: 05/01/18 05:05 05/01/18 05:05 Phys Exam - Physical Examination HEENT: PERRLA, moist MMs, sclera anicteric, TM's clear, oral pharynx no lesions , 2+ tonsils Neck: no nodes, no JVD, supple, full ROM Respiratory: no wheezing, no rales Cardiovascular: RRR, no significant murmur Gastrointestinal: soft, non-tender, no distention, positive bowel sounds Musculoskeletal: edema present Neurological: moves all 4 limbs responds appropriately with gestrures Psychiatric: normal affect Dx/Plan (1) C. difficile colitis Status: Acute Comment: oral vancomycin (2) Paroxysmal a-fib Code(s): I48.0 - PAROXYSMAL ATRIAL FIBRILLATION Status: Chronic (3) Physical deconditioning Code(s): R53.81 - OTHER MALAISE Status: Chronic (4) UTI (urinary tract infection) Status: Acute Qualifiers: Urinary tract infection type: acute cystitis Hematuria presence: without hematuria Qualified Code(s): N30.00 - Acute cystitis without hematuria Comment: enterococcus positive, continue Rocephin - Plan cont current plan of care, PT/OT, social sciences chair, speech therapy, out of bed/ ambulate * .
[2018-05-03] MEDS: cefTRIAXone\\ROCEPHIN 2 GM in Sodium Chloride 0.9% 100 ML IVPB SCH (15:32)
[2018-05-03] MEDS: Tamsulosin HCl 0.4 MG CAP PO SCH (16:15)
[2018-05-03] MEDS: Donepezil HCl 5 MG TAB PO SCH (16:15)
[2018-05-03] MEDS: traMADol HCl 50 MG TAB PO PRN (16:15)
[2018-05-04] MEDS: traMADol HCl 50 MG TAB PO PRN ×2 (04:12→12:04)
[2018-05-04] MEDS: Heparin 5,000 UNITS/ML VIAL SC SCH (09:41)
[2018-05-04] MEDS: Aspirin 325 MG TAB PO SCH (09:42)
[2018-05-04] MEDS: Polyethylene Glycol 3350 17 GM Packet PO SCH (09:42)
[2018-05-04] MEDS: Potassium Chloride 20 MEQ TAB PO SCH (09:42)
[2018-05-04] MEDS: Dronedarone HCl 400 MG TAB PO SCH (09:42)
[2018-05-04] MEDS: Furosemide 20 MG TAB PO SCH (09:42)
[2018-05-04] MEDS: Metoprolol Tartrate 25 MG TAB PO SCH (09:42)
[2018-05-04] MEDS: Vancomycin HCl 25 MG/ML Oral PO SCH ×2 (09:43→14:00)
[2018-05-04] MEDS: Minoxidil 10 MG TAB PO SCH (12:04)
[2018-05-04 12:09] VITALS: BP 163/71; TEMP 97.8
--- NOTE | 2018-05-05 01:12 | DIS ---
DATE OF ADMISSION: 04/27/2018 DATE OF DISCHARGE: 05/04/2018 ADMISSION DIAGNOSES: 1. Acute toxic encephalopathy. 2. Clostridium difficile colitis. 3. Enterococcus urinary tract infection. 4. Severe deconditioning. 5. Atrial fibrillation with rapid ventricular response. DISCHARGE DIAGNOSES: 1. Acute toxic encephalopathy. 2. Clostridium difficile colitis. 3. Enterococcus urinary tract infection. 4. Severe deconditioning. 5. Atrial fibrillation with rapid ventricular response. HISTORY OF PRESENTING ILLNESS: This is an 83-year-old gentleman who came from the long-term to the ER with acute altered mental status. Subsequent labs showed that the patient had C diff colitis and Enterococcus UTI. The patient was treated with IV Rocephin for his Enterococcus and then p.o. vancomycin. During his stay in the hospital, the patient had an atrial fibrillation with RVR, for which he needed IV GTT. He also required one dose of labetalol during his episode of RVR. The patient then responded well and was slowly weaned off his Cardizem and was restarted on his home medication Multaq. The patient slowly responded to antibiotics and was stable enough to be discharged. The patient was then discharged to his long-term with instructions to follow up with his primary care physician. DISCHARGE MEDICATIONS: 1. Aspirin 325 mg p.o. daily. 2. Aricept 10 mg p.o. daily. 3. Furosemide 20 mg p.o. b.i.d. 4. Metoprolol 25 mg p.o. b.i.d. 5. Minoxidil 5 mg p.o. daily. 6. Potassium chloride 20 mEq p.o. daily. 7. two tablets oral twice a day as needed. 8. Flomax 0.4 mg p.o. daily. 9. Multaq 400 mg p.o. b.i.d. DISCHARGE INSTRUCTIONS: 1. The patient was instructed to follow up with his primary care physician. 2. Physical Therapy to work with the patient. 3. Activity as tolerated. 4. Take medications as prescribed. 5. Heart-healthy diet. Job ID: [id number]
== END 2018-05-04 14:19 | DRG 871 ==
LOC: ERS 10:11 → ERHOLD 12:58 → 2NO 14:28
PROVIDERS: ADMIT Internal Medicine; ATTEND Internal Medicine
DX: A41.9 Sepsis, unspecified organism (principal); G92 Toxic encephalopathy; A04.72 Enterocolitis due to Clostridium difficile, not specified as recurrent; N30.00 Acute cystitis without hematuria; N17.9 Acute kidney failure, unspecified; E87.0 Hyperosmolality and hypernatremia; I12.9 Hypertensive chronic kidney disease with stage 1 through stage 4 chronic kidney disease, or unspecified chronic kidney disease; N18.9 Chronic kidney disease, unspecified; I48.0 Paroxysmal atrial fibrillation; E87.8 Other disorders of electrolyte and fluid balance, not elsewhere classified; G30.9 Alzheimer's disease, unspecified; F02.80 Dementia in other diseases classified elsewhere, unspecified severity, without behavioral disturbance, psychotic disturbance, mood disturbance, and anxiety; K21.9 Gastro-esophageal reflux disease without esophagitis; N40.0 Benign prostatic hyperplasia without lower urinary tract symptoms; D53.9 Nutritional anemia, unspecified; E87.6 Hypokalemia; B95.2 Enterococcus as the cause of diseases classified elsewhere; Z86.73 Personal history of transient ischemic attack (TIA), and cerebral infarction without residual deficits; Z88.8 Allergy status to other drugs, medicaments and biological substances; Z79.82 Long term (current) use of aspirin; Z79.899 Other long term (current) drug therapy
CPT/HCPCS: 36415; 36416; 70450; 71045; 74176; 80048; 80053; 81003; 81015; 82550; 83605; 83735; 83880; 84132; 84443; 85025; 85652; 86140; 87040; 87077; 87086; 87186; 87324; 87449; 93005; 93010; 93306; 96361; 96365; G8978-GP-CM; G8978-GP-CN; G8979-GP-CL; G8987-GO-CM; G8988-GO-CM; G8989-GO-CM; G8996-GN-CL; G8996-GN-CN; G8997-GN-CK; J0131; J0360; J0692; J0696; J1644; J1940; J2405; J2543; J3370; J3480; J7050

== ENCOUNTER 2018-05-17 07:17 | Inpatient (IN) | payer MEDICARE, MEDICAID ==
[2018-05-17 08:24] LABS: #Basophils 0.1 thou/uL (0.0-0.2); #Eosinphils 0.1 thou/uL (0.0-0.7); #Lymphocytes 0.8 thou/uL (1.20-3.40); #Monocytes 1.2 thou/uL (0.11-0.59); #Neutrophils 12.7 thou/uL (1.40-6.50); %Basophils 0.4 % (0.0-1.0); %Eosinophils 0.6 % (0.0-10.0); %Lymphocytes 5.1 % (21.0-51.0); %Monocytes 7.9 % (0.0-10.0); Hemoglobin 8.6 g/dL (14.0-18.0); Mean Corpuscular HGB CONC 32.3 g/dL (32.0-36.0); Mean Corpuscular Hemoglobin 28.7 pg (27.0-31.0); Mean Corpuscular Volume 88.7 fL (78.0-98.0); Mean Platelet Volume 9.3 fL (7.4-10.4); Platelet Count 223 thou/uL (130-400); RBC Distribution Width 15.4 % (11.5-14.5); Red Blood Cell (RBC) Count 3.01 mill/uL (4.70-6.10); White Blood Cell (WBC) Count 14.7 thou/uL (4.8-10.8)
--- NOTE | 2018-05-17 08:25 | CT ---
CT CERVICAL SPINE WITHOUT CONTRAST ENHANCEMENT: HISTORY: Neck pain status post fall. COMPARISON: 07/30/2016 FINDINGS: The vertebral bodies are normal in height. Severe degenerative disk narrowing is seen at C2-C3, C3-C 4, C4-C5, C5-C6, C6-C7 and C7-T1. There are degenerative facet changes. The facets are in normal al ignment. Areas of lucent or almost lytic appearing bony change are again noted. This is a stable fi nding and could just be on the basis of osteoporosis. Entities such as myeloma, given the stability, would be much less likely. The patient is slightly rotated at the C1-C2 level. No fractures are shade ntified. There is a mild degree of canal stenosis at C5-C6 and bilateral foraminal narrowing. There is also mild canal stenosis at C6-C7. There is left-sided foraminal narrowing at the C7-T1 level. There is no CT evidence for fracture. IMPRESSION: No CT evidence of fracture of the cervical spine. POS: [facility]
--- NOTE | 2018-05-17 08:29 | CT ---
CT OF BRAIN PERFORMED WITHOUT CONTRAST ENHANCEMENT: History Head injury status post fall. COMPARISON: 04/27/2018 study. The ventricular and cisternal system shows generalized atrophy. There is decreased attenuation of th e periventricular white matter. There are no signs of intracerebral hemorrhage or extraaxial fluid c ollections. The mastoid air cells are clear. There is a retention cyst in the left maxillary sinus. IMPRESSION: No acute intracranial abnormalities. POS: [facility]
--- NOTE | 2018-05-17 08:42 | CT ---
FACE CT WITHOUT CONTRAST: HISTORY: Fall. Pain. FINDINGS: There does appear to be mild dilatation of the left and right ophthalmic veins. Correlate for cavern ous sinus thrombosis. Both ocular lenses are appropriately located. Both globes are intact. Retrob ulbar fat is preserved. Symmetric attenuation of the optic nerves and ocular rectus muscles. There is left periorbital soft tissue swelling. Visualized aerodigestive tract is patent. No mucosal abnormality. The mandibular condyles articulate appropriately. The patient is edentulous. There is no evidence o f a maxilla or mandible fracture. Bilateral osteomeatal complexes are patent. There is leftward deviation of the nasal septum. The se ptum is intact. There is a mucous retention cyst in the left maxillary sinus. Visualized calvarium is unremarkable. The zygomatic arches are intact. Pterygoid plates are intact. No nasal bone fracture. IMPRESSION: 1. Left periorbital soft tissue swelling. 2. No maxillofacial fracture. 3. Mild prominence of both ophthalmic veins. Correlate for possible cavernous sinus thrombosis on a nonemergent basis. POS: [facility]
[2018-05-17 08:44] LABS: Anion Gap 17 mmol/L (10-20); Carbon Dioxide 21 mmol/L (23-31); Chloride 99 mmol/L (98-107); Potassium 4.7 mmol/L (3.5-5.1); Sodium 132 mmol/L (136-145)
[2018-05-17 08:45] LABS: ALT (SGPT) 10 U/L (8-55); AST (SGOT) 15 U/L (5-34); Albumin 3.6 g/dL (3.4-4.8); Alkaline Phosphatase 56 U/L (40-150); BUN (Urea Nitrogen) 19 mg/dL (8.4-25.7); Bilirubin, Total 0.5 mg/dL (0.2-1.2); CK (CPK) 145 U/L (30-200); Calc. Creatinine Clearance 0 mL/min (70-130); Estimated GFR-MDRD 26; Globulin 2.9 g/dL (2.4-3.5); Glucose 122 mg/dL (83-110); Protein, Total 6.5 g/dL (5.8-8.1)
--- NOTE | 2018-05-17 08:51 | RAD ---
PORTABLE CHEST: Date: 05/17/18 HISTORY: Patient is status post fall. COMPARISON: 04/29/18. FINDINGS: Heart size appears slightly enlarged. Atherosclerotic changes are seen within the aorta. Lungs appear clear of infiltrates. IMPRESSION: Mild cardiomegaly. No acute process. POS: [facility]
--- NOTE | 2018-05-17 08:52 | RAD ---
LEFT HIP 2 VIEWS: Date; 05/17/18 HISTORY: Patient is status post fall. FINDINGS: Bones are demineralized. An intertrochanteric fracture of the left hip with coxa vara deformity is no kaitlyn. IMPRESSION: 1. Comminuted intertrochanteric fracture of the left hip with coxa vara deformity. 2. Old left superior and inferior pubic rami fractures, and cement placement in the sacrum are again noted. POS: [facility]
--- NOTE | 2018-05-17 08:56 | RAD ---
AP PELVIS: COMPARISON: 07/31/2016 study. FINDINGS: The bones are diffusely demineralized. Postoperative changes are noted of the pelvis with cement odalis mary in the right and left sides of the sacrum. Old left superior and inferior pubic rami fractures a re noted. Postoperative changes of the right hip are seen. Comminuted intratrochanteric fracture of the left hip is present. IMPRESSION: Comminuted intratrochanteric fracture of the left hip with coxa vera deformity. POS: [facility]
--- NOTE | 2018-05-17 09:12 | RAD ---
LEFT FEMUR 2 VIEWS: Date: 05/17/18 HISTORY: Pain. Fall. FINDINGS: Angulated, comminuted intertrochanteric fracture. There is diffuse bone demineralization. IMPRESSION: Intertrochanteric fracture. POS: [facility]
[2018-05-17] MEDS ORDERED: CEFAZOLIN/Water 2 GM/20 ML SYRINGE SLOW IVP SCH ×3 (09:45→15:18)
[2018-05-17] MEDS ORDERED: Ondansetron ODT 4 MG TAB PO PRN (09:50)
[2018-05-17] MEDS ORDERED: Insulin Regular 300 UNITS/3 ML VIAL SC PRN (09:50)
[2018-05-17] MEDS ORDERED: Ondansetron PF 4 MG/2 ML Vial IVP PRN (09:50)
[2018-05-17] MEDS ORDERED: Dextrose 5% in Water 1,000 ML IV PRN (09:50)
[2018-05-17] MEDS ORDERED: Promethazine HCl 25 MG/ML VIAL IM PRN ×2 (09:50→13:24)
[2018-05-17] MEDS ORDERED: Dextrose 50% Abboject 50 ML SYRINGE SLOW IVP PRN (09:50)
[2018-05-17] MEDS ORDERED: Senokot S 8.6-50 MG TAB PO PRN (09:57)
[2018-05-17] MEDS ORDERED: CEFAZOLIN 2 GM/50 ML-DEXTROSE 2 GM in Premix Bag 1 BAG IVPB SCH (10:00)
--- NOTE | 2018-05-17 10:25 | CON ---
DATE OF CONSULTATION: HISTORY OF PRESENT ILLNESS: We were asked by the ER and Trauma to see the patient. The patient was in his normal state of health. He resides in a halfway facility when he fell, fracturing his left hip. He was admitted to the hospital last month for multiple health issues, but is doing better now other than hip fracture. 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 He also has some dementia, but he will follow some simple commands and answer a few yes and no questions. Currently, he is in room-[address] in the emergency room[address] Dr. Viera and his staff were at the bedside, working the patient up, but have given his authorization to go forth with surgical repair. REVIEW OF SYSTEMS: Unable to obtain and may be is that obviously he has some pain in the left hip with moving. PAST MEDICAL HISTORY: Atrial fibrillation, hypertension, Alzheimer's dementia, reflux, BPH, CVA, anemia, and history of encephalopathy. PAST SURGICAL HISTORY: Definitely a right hip, but I am unable to get any further surgical history from patient due to his aphasia. ALLERGIES: IODINE. FAMILY HISTORY: Unobtainable. CURRENT MEDICATIONS: Per his last visit on 04/27/2018, are aspirin, Lasix, lisinopril, pantoprazole, metoprolol, MiraLAX, minoxidil, benazepril, tamsulosin, and clonidine. SOCIAL HISTORY: Again, resides in a skilled facility. Per history, uses no alcohol, nicotine, or drugs products. Rest of the information is unobtainable due to the patient's stroke and aphasia. PHYSICAL EXAMINATION: GENERAL: A well-nourished appearing male, currently in a cervical collar. His right leg is drawn up; left leg, any movement causes pain. HEENT: Face is symmetric and normocephalic. NECK: Cervical collar is in place. The trachea is midline. EXTREMITIES: Upper extremities are equal size, shape, symmetry, normal bulk and tone. Movements are fairly equal and he is following some simple commands with the upper extremities, and did shake my hand when I came in the room. Lower extremities; right lower extremity was drawn out. Left lower extremity is outward rotated. DP, PT pulses are equal. RESPIRATORY: He in no acute distress. Breathing normally. VITAL SIGNS: Currently are stable. RADIOLOGICAL STUDIES: X-rays, reviewed x-rays with myself and Dr. Kirby. He does have a left intertrochanteric fracture. PLAN: I spoke with the patient, but I am unsure how much confirmation he is able to retain. I went over the procedure, he has already had this on the right side, so at one point in time, procedure has been explained to him and he did well with this. We will need to have two doctors medical staff providers' sign for consent, but I did speak with the patient date of the procedure and he did shake his head yes to go forth with repair of his hip. Trauma has cleared the patient for surgery. We will get him consented, post it, preop antibiotics have been ordered. We will get him ready for surgery this afternoon. Job ID: [id number]
[2018-05-17] MEDS ORDERED: Fentanyl 100 MCG/2 ML VIAL ONE (12:01)
[2018-05-17] MEDS ORDERED: Lidocaine 1% PF 5 ML VIAL ONE (12:36)
[2018-05-17] MEDS ORDERED: PROPOFOL 200 MG/20 ML VIAL ONE (12:36)
--- NOTE | 2018-05-17 12:53 | HP ---
ADMITTING TRAUMA SURGEON: Dr. Viera. HISTORY OF PRESENT ILLNESS: This is an 83-year-old male with a history of CVA's and dementia, currently living in a prison, who fell. The pt was found on the floor by the prison staff this am , rubbing his left hip. The patient mumbles when speaking which is normal for him due to history of CVA. The patient was taken to the emergency room and evaluated to have a left hip fracture. The patient is slightly confused, able to answer his name and states that he is in the hospital. He is unaware of the date. Orthopedics has been consulted by the emergency physician, Dr. Toscano. The patient was recently in the hospital for ischemic colitis and C. diff. REVIEW OF SYSTEMS: Unable to obtain. The patient is currently unable to provide information due to dementia and slight confusion. PAST MEDICAL HISTORY: 1. Paroxysmal atrial fibrillation, not on any anticoagulation. 2. Hypertension. 3. Alzheimer's dementia. 4. Reflux. 5. BPH. 6. History of CVA. 7. History of encephalopathy with multiple hospitalizations. 8. Chronic macrocytic anemia. PAST SURGICAL HISTORY: Unable to obtain. ALLERGIES: IODINE, UNKNOWN REACTION. FAMILY HISTORY: Unable to obtain from the patient. MEDICATIONS: Obtained from the patient's chart. 1. Aspirin 325 daily. 2. Lasix 20 mg daily. 3. Lisinopril 40 mg daily. 4. Pantoprazole 40 mg daily. 5. Metoprolol 25 mg b.i.d. 6. MiraLAX 17 g daily. 7. Minoxidil 5 mg daily. 8. Donepezil 10 mg daily. 9. Tamsulosin 0.4 mg daily. 10. Clonidine 0.3 transdermal once a week. SOCIAL HISTORY: Unable to obtain. Previous hospital visit reports history of no smoking. No alcohol use or drug use and documented as a full code. PHYSICAL EXAMINATION: VITAL SIGNS: Blood pressure 118/58, respirations 18, heart rate 70, temperature 98.0, and SpO2 of 100% on 2 L. HEENT: Normocephalic. Contusion to the left cheek and eye area, pupils equal and reactive at 2 mm. Trachea is midline. There is no cervical tenderness. RESPIRATORY: Respirations are even and nonlabored. Bilateral breath sounds present. No wheezes or rhonchi. CARDIOVASCULAR: Regular rate and rhythm. S1 and S2. No murmurs noted. No pedal edema. ABDOMEN: Soft, nontender. Active bowel sounds. EXTREMITIES: Moves all extremities. Positive distal pulses 2+. The patient does have a 1 cm x 1 cm open wound below the left knee, ulcerated and redness circling the wound. SKIN: The patient with skin tear to right mid arm. NEURO: The patient is awake, alert, oriented to person and place only. Unable to carry on a conversation. LABORATORY DATA: WBC 14.7, RBC 3.01, hemoglobin 8.6, and hematocrit 26.7. Sodium 132, carbon dioxide 21, BUN 19, creatinine 2.44, estimated GFR 26, glucose 122, lactic acid 1.5, calcium 9.0, total bilirubin 0.5, AST 15, ALT 10. Alkaline phosphatase 56, CK 145. Serum total protein 6.5, albumin 3.6, and globulin 2.9. DIAGNOSTIC DATA: Chest x-ray unremarkable. Facial bone CT and head CT, no maxillofacial fractures, left periorbital soft tissue swelling, no acute intracranial abnormalities. Cervical spine CT, no evidence of fracture of the cervical spine. Pelvis x-ray, comminuted intertrochanteric fracture of the left hip with coxa vara deformity. ASSESSMENT: 1. Ground level fall with left hip fracture. 2. Acute pain. 3. Dementia. 4. Acute on chronic kidney injury. 5. Hyponatremia. 6. History of CVA. 7. Hypertension. PLAN: The patient will be placed on n.p.o. status for OR today for ORIF of left hip by Dr. Kirby. We will place the patient on normal saline 100 mL an hour and place Lockwood catheter. We will type and cross the patient. We will repeat CBC and BMP in the morning. PT/OT evaluation and treat after surgery. We will place the patient on a pain regimen. The patient was examined with Dr. Viera and plan was discussed. Job ID: [id number] MTDD
--- NOTE | 2018-05-17 13:17 | RAD ---
LEFT HIP 2 VIEWS INTRAOPERATIVE FLUOROSCOPY: History Hip fracture. FINDINGS: Intraoperative fluoroscopy was provided for internal fixation as performed by Dr. Kirby. Spot fl uoroscopic images compression nail and short medullary bull transfixing the left hip fracture, in kike omic alignment. Fluoro time 39 seconds. POS: [facility]
[2018-05-17] MEDS ORDERED: Promethazine HCl 25 MG/ML VIAL SLOW IVP PRN (13:24)
[2018-05-17] MEDS ORDERED: Ondansetron HCl/PF 4 MG/2 ML Vial IVP PRN (13:24)
--- NOTE | 2018-05-17 16:02 | OP ---
DATE OF PROCEDURE: 05/17/2018 PROCEDURE PERFORMED: Left femur intramedullary nail. PREOPERATIVE DIAGNOSIS: Left femur intertrochanteric fracture. POSTOPERATIVE DIAGNOSIS: Left femur intertrochanteric fracture. COMPLICATIONS: None. ESTIMATED BLOOD LOSS: 100 mL. ANESTHESIA: General. IMPLANTS: Synthes trochanteric nail, size 12 mm, short. INDICATIONS: Mr. Aguilar is an 83-year-old male, who fell in his senior living. He fractured his left intertrochanteric femur. He was evaluated and deemed an acceptable risk for intramedullary nail placement to hopefully restore the ability to mobilize and provide pain relief. The patient is aphasic, but is believed to understand the procedure. We did a two doctor signed consent as well as the spiritual care service. The patient signed the consent form as well. Risks to include infection, pain, scarring, nerve or vascular injury, medical complication, and others. DESCRIPTION OF PROCEDURE: Mr. Aguilar was identified in the preop holding area. He was positioned supine on the operative table. General anesthesia was induced. He was given intravenous antibiotics. A multidisciplinary time-out was performed. The left lower extremity was prepped and draped in sterile fashion. At this point, we proceeded with incision proximal to the greater trochanter. We dissected down through the subcutaneous tissues. We palpated the trochanter. At this point, we inserted our guidewire. We overdrilled the guidewire. We then inserted a 12-mm short trochanteric nail. At this point, we placed a guidewire in the center position of the femoral head using the appropriate guide. We overdrilled this and then impacted our helical blade. This was placed in a dynamic position. We then placed a distal Crosslock screw. Final x-rays were taken. We thoroughly irrigated. We closed the wounds appropriately. The patient was taken to the recovery room. Job ID: [id number]
[2018-05-17] MEDS: CEFAZOLIN 2 GM/50 ML-DEXTROSE 2 GM in Premix Bag 1 BAG IVPB SCH (18:43)
[2018-05-17] MEDS: Sodium Chloride 0.9% 1,000 ML IV SCH (19:17)
[2018-05-17] MEDS: Acetaminophen 500 MG TAB PO SCH ×2 (19:17→21:52)
[2018-05-17] MEDS: traMADol HCl 50 MG TAB PO SCH ×2 (19:18→19:19)
[2018-05-17] MEDS: Donepezil HCl 5 MG TAB PO SCH (19:20)
[2018-05-17] MEDS: Dronedarone HCl 400 MG TAB PO SCH (19:20)
[2018-05-17] MEDS: Artificial Tear Sol 15 ML BOT EA EYE SCH (21:51)
[2018-05-17] MEDS: Metoprolol Tartrate 25 MG TAB PO SCH (21:52)
[2018-05-18] MEDS: CEFAZOLIN 2 GM/50 ML-DEXTROSE 2 GM in Premix Bag 1 BAG IVPB SCH (03:01)
[2018-05-18] MEDS: traMADol HCl 50 MG TAB PO SCH ×3 (03:07→20:46)
[2018-05-18] MEDS: Acetaminophen 500 MG TAB PO SCH ×4 (03:07→21:33)
[2018-05-18] MEDS: Sodium Chloride 0.9% 1,000 ML IV SCH ×2 (03:08→07:00)
[2018-05-18 05:54] LABS: #Eosinphils 0.4 thou/uL (0.0-0.7); #Lymphocytes 0.9 thou/uL (1.20-3.40); #Monocytes 0.9 thou/uL (0.11-0.59); #Neutrophils 7.4 thou/uL (1.40-6.50); %Basophils 0.3 % (0.0-1.0); %Eosinophils 4.6 % (0.0-10.0); %Lymphocytes 9.4 % (21.0-51.0); %Monocytes 9.2 % (0.0-10.0); %Neutrophils 76.6 % (42.0-75.0); Hemoglobin 7.8 g/dL (14.0-18.0); Mean Corpuscular HGB CONC 31.8 g/dL (32.0-36.0); Mean Corpuscular Hemoglobin 28.5 pg (27.0-31.0); Mean Corpuscular Volume 89.6 fL (78.0-98.0); Mean Platelet Volume 9.4 fL (7.4-10.4); Platelet Count 185 thou/uL (130-400); RBC Distribution Width 15.4 % (11.5-14.5); Red Blood Cell (RBC) Count 2.73 mill/uL (4.70-6.10); White Blood Cell (WBC) Count 9.7 thou/uL (4.8-10.8)
[2018-05-18 06:08] LABS: Phosphorus 3.7 mg/dL (2.3-4.7)
[2018-05-18 06:12] LABS: Anion Gap 13 mmol/L (10-20); BUN (Urea Nitrogen) 19 mg/dL (8.4-25.7); Calc. Creatinine Clearance 31 mL/min (70-130); Calcium 8.4 mg/dL (7.8-10.44); Carbon Dioxide 24 mmol/L (23-31); Chloride 102 mmol/L (98-107); Estimated GFR-MDRD 29; Glucose 103 mg/dL (83-110); Magnesium 2.1 mg/dL (1.6-2.6); Potassium 4.7 mmol/L (3.5-5.1); Sodium 134 mmol/L (136-145)
[2018-05-18] MEDS: Tamsulosin HCl 0.4 MG CAP PO SCH (08:58)
[2018-05-18] MEDS: Dronedarone HCl 400 MG TAB PO SCH ×2 (08:58→17:34)
[2018-05-18] MEDS: Metoprolol Tartrate 25 MG TAB PO SCH (08:58)
[2018-05-18] MEDS: Polyethylene Glycol 3350 17 GM Packet PO SCH (08:59)
[2018-05-18] MEDS: Enoxaparin Sodium 40 MG/0.4 ML SYRINGE SC SCH (09:00)
[2018-05-18] MEDS: Artificial Tear Sol 15 ML BOT EA EYE SCH ×2 (09:00→20:46)
--- NOTE | 2018-05-18 15:54 | PRG ---
DATE OF SERVICE: 05/18/2018 SUBJECTIVE: This is a 83-year-old male with a history of CVAs and dementia, who lives in a half-way, status post mechanical fall. The patient was found on the floor by the nursing staff and was taken to the emergency room for evaluation. The patient is postop day #1, status post ORIF, left hip. The patient is awake and alert, in no distress. Pain seems to be well controlled. There were no overnight reported events. The patient did participate with physical therapy and sat up on the side of the bed earlier today. OBJECTIVE: VITAL SIGNS: Blood pressure 117/58, temperature 98.4, pulse 63, respirations 16, SpO2 of 95% on 1 L nasal cannula. GENERAL: The patient is awake and alert. Appears to be in normal mental state of health. HEENT: Normocephalic, atraumatic. RESPIRATORY: Respirations even nonlabored. No respiratory distress. CARDIOVASCULAR: Regular rate. MUSCULOSKELETAL: The patient moves all extremities. LABORATORY DATA: WBC 9.7, RBC 2.73, hemoglobin 7.8, hematocrit 24.5, platelets 185. Sodium 134, potassium 4.7, chloride 102, carbon dioxide 24, BUN 19, creatinine is 2.22, estimated GFR 29, glucose 103, calcium 8.4, phosphorus 3.7, magnesium 2.1. ASSESSMENT: 1. Ground level fall. 2. Left hip fracture, status post open reduction and internal fixation. 3. Acute traumatic pain. 4. Dementia. 5. Acute on chronic kidney injury. 6. History of cerebrovascular accident. 7. History of hypertension. PLAN: We will encourage PT, OT and encourage the patient to get out of bed and up in the chair. We will stop the patient's IV fluids and discontinue the patient's Lockwood. The patient had soft blood pressures overnight, so we will hold off on restarting the patient's blood pressure medicines right now. The patient appears to be a little more drowsier than yesterday. We will decrease the patient's Ultram to q.12 hours instead of q.8 hours. We will continue comfort measures and pain management. Awaiting placement. The patient is started on DVT prophylaxis per Dr. Kirby. This patient was evaluated with Dr. Viera. Job ID: [id number]
[2018-05-18] MEDS: Donepezil HCl 5 MG TAB PO SCH (17:34)
[2018-05-19] MEDS: Acetaminophen 500 MG TAB PO SCH ×4 (04:47→22:12)
[2018-05-19] MEDS: Dronedarone HCl 400 MG TAB PO SCH ×2 (08:58→17:11)
[2018-05-19] MEDS: traMADol HCl 50 MG TAB PO SCH ×2 (08:59→22:12)
[2018-05-19] MEDS: Artificial Tear Sol 15 ML BOT EA EYE SCH ×2 (08:59→22:13)
[2018-05-19] MEDS: Tamsulosin HCl 0.4 MG CAP PO SCH (09:00)
[2018-05-19] MEDS: Enoxaparin Sodium 40 MG/0.4 ML SYRINGE SC SCH (09:11)
[2018-05-19] MEDS: Polyethylene Glycol 3350 17 GM Packet PO SCH (09:16)
[2018-05-19] MEDS ORDERED: Metoprolol Tartrate 25 MG TAB PO SCH (11:45)
[2018-05-19 11:46] LABS: #Eosinphils 0.5 thou/uL (0.0-0.7); #Lymphocytes 1.8 thou/uL (1.20-3.40); #Monocytes 1.1 thou/uL (0.11-0.59); #Neutrophils 7.8 thou/uL (1.40-6.50); %Basophils 0.3 % (0.0-1.0); %Eosinophils 4.7 % (0.0-10.0); %Lymphocytes 15.7 % (21.0-51.0); %Neutrophils 69.4 % (42.0-75.0); Mean Corpuscular HGB CONC 32.2 g/dL (32.0-36.0); Mean Corpuscular Hemoglobin 29.1 pg (27.0-31.0); Mean Corpuscular Volume 90.2 fL (78.0-98.0); Mean Platelet Volume 9.2 fL (7.4-10.4); Platelet Count 160 thou/uL (130-400); RBC Distribution Width 15.6 % (11.5-14.5); Red Blood Cell (RBC) Count 2.41 mill/uL (4.70-6.10); White Blood Cell (WBC) Count 11.3 thou/uL (4.8-10.8)
[2018-05-19 12:04] LABS: Anion Gap 14 mmol/L (10-20); BUN (Urea Nitrogen) 27 mg/dL (8.4-25.7); Calc. Creatinine Clearance 28 mL/min (70-130); Calcium 8.6 mg/dL (7.8-10.44); Carbon Dioxide 23 mmol/L (23-31); Chloride 104 mmol/L (98-107); Estimated GFR-MDRD 26; Glucose 137 mg/dL (83-110); Magnesium 2.3 mg/dL (1.6-2.6); Phosphorus 3.2 mg/dL (2.3-4.7); Potassium 4.4 mmol/L (3.5-5.1); Sodium 137 mmol/L (136-145)
--- NOTE | 2018-05-19 14:24 | PRG ---
DATE OF SERVICE: 05/19/2018 SUBJECTIVE: The patient is in bed with head of bed elevated. No distress at this time. Pain seems to be well controlled. The patient is postop day 2 status post ORIF of the left hip. There were no overnight events reported. OBJECTIVE: VITAL SIGNS: Temperature 98.5, pulse 67, respirations 18, SpO2 of 100% on 2 L nasal cannula, and blood pressure 132/68. GENERAL: The patient is awake, alert, in no distress. HEENT: The patient with healing bruises to the left eye. Head is normocephalic. NECK: Trachea is midline. There is no JVD. RESPIRATORY: The patient with upper airway congestion. Equal chest rise. No distress. CARDIOVASCULAR: Regular rate. MUSCULOSKELETAL: The patient moves all extremities. LABORATORY DATA: WBC 11.3, RBC 2.41, hemoglobin 7.0, hematocrit 21.7, RDW of 15.6. Sodium 137, potassium 4.4, chloride 104, CO2 of 23, anion gap 14, BUN 27, creatinine 2.44, GFR 26, glucose 137, calcium 8.6, phosphorus 3.2, and magnesium 2.3. ASSESSMENT: 1. Ground level fall. 2. Status post of day 2 open reduction and internal fixation of left hip. 3. Acute traumatic pain. 4. Dementia. 5. Acute on chronic kidney disease. 6. History of CVA. 7. History of hypertension. PLAN: 1. We will continue to encourage PT/OT. Waiting for acceptance back to long-term facility, where the patient came from. 2. We will restart the patient's metoprolol as his blood pressures are back up. We will consult Speech Therapy. Job ID: [id number]
[2018-05-19] MEDS: Donepezil HCl 5 MG TAB PO SCH (17:10)
[2018-05-19] MEDS: Metoprolol Tartrate 25 MG TAB PO SCH (22:13)
[2018-05-20] MEDS: Acetaminophen 500 MG TAB PO SCH ×3 (03:38→16:24)
[2018-05-20] MEDS: traMADol HCl 50 MG TAB PO SCH (08:02)
[2018-05-20] MEDS: Polyethylene Glycol 3350 17 GM Packet PO SCH (08:02)
[2018-05-20] MEDS: Metoprolol Tartrate 25 MG TAB PO SCH (08:02)
[2018-05-20] MEDS: Dronedarone HCl 400 MG TAB PO SCH ×2 (08:02→16:24)
[2018-05-20] MEDS: Tamsulosin HCl 0.4 MG CAP PO SCH (08:02)
[2018-05-20] MEDS: Enoxaparin Sodium 40 MG/0.4 ML SYRINGE SC SCH (08:02)
[2018-05-20] MEDS: Artificial Tear Sol 15 ML BOT EA EYE SCH (08:03)
[2018-05-20 08:25] LABS: #Basophils 0.1 thou/uL (0.0-0.2); #Lymphocytes 1.8 thou/uL (1.20-3.40); #Monocytes 1.1 thou/uL (0.11-0.59); %Basophils 0.5 % (0.0-1.0); %Eosinophils 7.9 % (0.0-10.0); %Lymphocytes 14.1 % (21.0-51.0); %Monocytes 8.3 % (0.0-10.0); %Neutrophils 69.1 % (42.0-75.0); Hemoglobin 7.1 g/dL (14.0-18.0); Mean Corpuscular HGB CONC 31.1 g/dL (32.0-36.0); Mean Corpuscular Hemoglobin 28.7 pg (27.0-31.0); Mean Corpuscular Volume 92.3 fL (78.0-98.0); Mean Platelet Volume 9.1 fL (7.4-10.4); Platelet Count 175 thou/uL (130-400); RBC Distribution Width 15.8 % (11.5-14.5); Red Blood Cell (RBC) Count 2.48 mill/uL (4.70-6.10)
[2018-05-20 08:47] LABS: Anion Gap 15 mmol/L (10-20); BUN (Urea Nitrogen) 28 mg/dL (8.4-25.7); Calc. Creatinine Clearance 34 mL/min (70-130); Calcium 8.8 mg/dL (7.8-10.44); Carbon Dioxide 21 mmol/L (23-31); Chloride 106 mmol/L (98-107); Estimated GFR-MDRD 32; Glucose 111 mg/dL (83-110); Potassium 4.5 mmol/L (3.5-5.1); Sodium 137 mmol/L (136-145)
[2018-05-20] MEDS: Donepezil HCl 5 MG TAB PO SCH (16:24)
[2018-05-20 16:58] VITALS: BP 107/51; TEMP 98.1
--- NOTE | 2018-05-21 00:46 | DIS ---
DATE OF ADMISSION: 05/17/2018 DATE OF DISCHARGE: 05/20/2018 ADMITTING SURGEON: Dr. Viera. DISCHARGING SURGEON: Dr. Beaulieu. CONSULT: Orthopedics, Dr. Kirby. PROCEDURES: 1. On 05/17/2018, chest x-ray impression; mild cardiomegaly. No acute process. 2. Hip x-ray, comminuted intertrochanteric fracture of the left hip. Old left superior-inferior pubic rami fracture. 3. Facial bone CT, no maxillofacial fracture. Left orbital soft tissue swelling. 4. Brain CT, no acute intracranial abnormality. 5. Pelvis x-ray, comminuted intertrochanteric fracture of the left hip. 6. Femur x-ray, impression; intertrochanteric fracture. 7. On 05/17/2018, the patient underwent left femur intramedullary nail for his left femur intertrochanteric fracture. PRIMARY DIAGNOSIS: Ground-level fall, left hip fracture with repair. SECONDARY DIAGNOSES: 1. Dementia. 2. Acute on chronic kidney injury. 3. History of cerebrovascular accident and hypertension. DISCHARGE MEDICATIONS: 1. Acetaminophen 1000 mg p.o. q.6 hours. 2. Aricept 10 mg p.o. 3. Multaq 400 mg b.i.d. with meals. 4. Lopressor 25 mg p.o. b.i.d. 5. Protonix 40 mg p.o. daily. 6. MiraLAX 17 g p.o. daily. 7. Artificial Tears 2 drops each eye b.i.d. 8. Senokot 2 tablets p.o. b.i.d. 9. Flomax 0.4 mg p.o. daily. 10. Tramadol 50 mg p.o. q.12 hours as needed for severe pain. 11. Aspirin p.o. daily. 12. Furosemide 20 mg p.o. b.i.d. 13. Potassium chloride 20 mEq p.o. q.a.m. with meal. HISTORY OF PRESENT ILLNESS AND HOSPITAL COURSE: This is an 83-year-old gentleman with a history of CVA and dementia, who currently lives in a [facility], status post fall. The patient was found on the floor by the [facility] staff. The patient was evaluated in the emergency room and was found to have a left hip fracture. The patient with CVA history and mumbling, which is normal for a patient often times difficult to understand, but remained oriented to person and place in the entire stay. The patient had been recently in the hospital for ischemic colitis and C diff with treatment. The patient did have an event yesterday, where he had some upper airway noise, possibly from aspiration, but cleared up with coughing. At that time, the patient was noted to go in and out of atrial fibrillation, which resolved after restarting metoprolol. Otherwise, the patient's pain was well controlled. On the day of discharge, the patient had stable vital signs. The patient had no complaints at the time of discharge, and the exam was unremarkable including cardiopulmonary and GI exam. The patient was deemed stable for discharge to swing bed for continued physical therapy and occupational therapy. The plan was discussed with the attending surgeon. DISPOSITION: Stable. DISCHARGE INSTRUCTIONS: 1. Location: Swing bed unit. 2. Diet: Pureed diet. 3. Activity: Hip precautions. Weightbearing as tolerated. FOLLOWUP: 1. Follow up with Dr. Kirby in 14 days. 2. Follow up with Dr. Viera as needed. 3. Follow up with primary as needed. Job ID: [id number]
== END 2018-05-20 19:17 | DRG 481 ==
LOC: ERS 07:17 → SURG B 10:18 → SDC 10:39 → SURG B 13:35
PROVIDERS: ADMIT Surgery; ATTEND Orthopaedic Surgery
PROC: 0QH706Z Insertion of Intramedullary Internal Fixation Device into Left Upper Femur, Open Approach (ICD-10-PCS; principal; 2018-05-17)
DX: S72.142A Displaced intertrochanteric fracture of left femur, initial encounter for closed fracture (principal); N17.9 Acute kidney failure, unspecified; E87.1 Hypo-osmolality and hyponatremia; I48.91 Unspecified atrial fibrillation; G30.9 Alzheimer's disease, unspecified; I12.9 Hypertensive chronic kidney disease with stage 1 through stage 4 chronic kidney disease, or unspecified chronic kidney disease; N18.9 Chronic kidney disease, unspecified; N40.0 Benign prostatic hyperplasia without lower urinary tract symptoms; F02.80 Dementia in other diseases classified elsewhere, unspecified severity, without behavioral disturbance, psychotic disturbance, mood disturbance, and anxiety; K21.9 Gastro-esophageal reflux disease without esophagitis; Z86.73 Personal history of transient ischemic attack (TIA), and cerebral infarction without residual deficits; Z79.82 Long term (current) use of aspirin; Z79.899 Other long term (current) drug therapy; W19.XXXA Unspecified fall, initial encounter; Y92.129 Unspecified place in nursing home as the place of occurrence of the external cause
CPT/HCPCS: 36415; 36416; 51702; 70450; 70486; 71045; 72125; 72170; 76000; 80048; 80053; 82550; 83605; 83735; 84100; 85025; 86850; 86900; 86901; 93005; 94640; 94760; C1713; G0390; J1650; J2001; J2704; J3010; J7620

== ENCOUNTER 2018-09-23 09:46 | Inpatient (IN) | payer MEDICARE, MEDICAID ==
[2018-09-23 10:42] LABS: Actual Bicarbonate (HCO3a) 25.9 mEq/L (22-28); Analyzer IN Cardio ER; Base Excess (BEa) -0.2 mEq/L (-2.0 to +3.0); CO2 Tension 49.8 mmHg (35.0-45.0); Calcium, Ionized 1.11 mmol/L (1.12-1.30); Carboxyhemoglobin (COHb) 0.8 gm% (0.0-3.0); Hemoglobin (Hb) 8.9 g/dL (14.0-18.0); O2 Tension (PaO2) 74.2 mmHg (> 60.0); Potassium - ABG Lab 4.24 mmol/L (3.70-5.30); Puncture Site LBA; pH, Arterial 7.33 (7.35-7.45)
[2018-09-23 11:21] LABS: Bilirubin Negative (Negative); Blood, Urine Negative (Negative); Clarity CLEAR (Clear); Glucose, Urine (Dipstick) Negative (Negative); Leukocyte Negative (Negative); Nitrite Negative (Negative); Protein, Urine (Dipstick) Negative (Neg-Trace); Urobilinogen 0.2 mg/dL (0.2-1.0)
[2018-09-23] MEDS ORDERED: Norepinephrine 8 MG/0.9% NS 250 ML ONE (11:37)
[2018-09-23] MEDS ORDERED: Piperacillin/Tazobactam 4.5 GM VIAL ONE (11:51)
--- NOTE | 2018-09-23 11:55 | CT ---
CT ABDOMEN AND PELVIS WITHOUT CONTRAST: HISTORY: Abdominal pain, vomiting COMPARISON: 04/27/2018 FINDINGS: Absence of oral and IV contrast reduces the sensitivity of the exam particularly for the evaluation o f solid organs and bowel. There are moderate-sized bilateral pleural effusions with adjacent atelectatic changes. A tiny perica rdial effusion is present. No calcified gallstones are seen. No free air is seen in the abdomen or pelvis. There is a small amou nt of free fluid in the lower abdomen and pelvis. There is edema in the abdominal wall. No calculi are seen in the kidneys ureters or the urinary bladder. No hydroureteronephrosis is seen i n either side. A Lockwood catheter is present along with air in the decompressed urinary bladder. The small bowel loops are not abnormally dilated. There is fecal material in the colon and rectum. A small fat-containing right inguinal hernia is present. There are postop changes and metallic hardware in both proximal femurs. There are degenerative changes in the spine. Vascular calcification s are present without evidence of aneurysmal dilatation of the abdominal aorta. IMPRESSION: 1. No CT evidence of urinary tract calculi or obstruction 2. Moderate-sized bilateral pleural effusions 3. Tiny pericardial effusion 4. Mild ascites.
--- NOTE | 2018-09-23 12:07 | RAD ---
PORTABLE CHEST 1 VIEW: Date: 09/23/18 Time: 1124 hours HISTORY: Sepsis. Nausea and vomiting. FINDINGS/IMPRESSION: Comparison made with exam of 06/14/18. The heart size is enlarged. The aorta is tortuous. There is pulmonary vascular congestion with bilate ral pleural effusions and bibasilar infiltrates/atelectatic changes. No pneumothoraces are seen. Ther e is a right-sided subclavian central line with tip in the projection of the right atrium. POS: [facility]
[2018-09-23 12:36] LABS: Hemoglobin 8.9 g/dL (14.0-18.0); Mean Corpuscular HGB CONC 31.1 g/dL (32.0-36.0); Mean Corpuscular Hemoglobin 27.1 pg (27.0-31.0); Mean Corpuscular Volume 87.1 fL (78.0-98.0); Red Blood Cell (RBC) Count 3.27 mill/uL (4.70-6.10); White Blood Cell (WBC) Count 5.5 thou/uL (4.8-10.8)
[2018-09-23 12:53] LABS: ALT (SGPT) 24 U/L (8-55); AST (SGOT) 23 U/L (5-34); Albumin 3.8 g/dL (3.4-4.8); Alkaline Phosphatase 76 U/L (40-150); Anion Gap 14 mmol/L (10-20); BUN (Urea Nitrogen) 40 mg/dL (8.4-25.7); Bilirubin, Total 0.5 mg/dL (0.2-1.2); CK (CPK) 51 U/L (30-200); Calc. Creatinine Clearance 0 mL/min (70-130); Calcium 8.8 mg/dL (7.8-10.44); Carbon Dioxide 28 mmol/L (23-31); Chloride 107 mmol/L (98-107); Estimated GFR-MDRD 23; Globulin 2.4 g/dL (2.4-3.5); Glucose 83 mg/dL (83-110); Potassium 4.5 mmol/L (3.5-5.1); Protein, Total 6.2 g/dL (5.8-8.1); Sodium 144 mmol/L (136-145)
[2018-09-23 12:59] LABS: #Eosinphils 0.1 thou/uL (0.0-0.7); #Lymphocytes 0.7 thou/uL (1.20-3.40); #Monocytes 0.4 thou/uL (0.11-0.59); #Neutrophils 4.3 thou/uL (1.40-6.50); %Basophils 0.4 % (0.0-1.0); %Eosinophils 1.3 % (0.0-10.0); %Lymphocytes 13.3 % (21.0-51.0); %Monocytes 6.9 % (0.0-10.0); Hypochromia SLIGHT = 6-15 cells (100X) (0-5/hpf); Large Platelets SLIGHT; MDiff Complete? YES; Mean Platelet Volume 12.5 fL (7.4-10.4); Platelet Count 90 thou/uL (130-400); Platelet Morphology Comment Appears Decreased; Polychromasia SLIGHT = 2-3 cells (100X) (0-2/hpf); RBC Distribution Width 19.8 % (11.5-14.5); Schistocytes SLIGHT = 2-5 cells (100X) (0-1/hpf)
[2018-09-23 13:16] LABS: CKMB 7.1 ng/mL (0-6.6)
[2018-09-23] MEDS ORDERED: Acetaminophen 650 MG Suppository PR PRN (13:36)
[2018-09-23] MEDS ORDERED: Sodium Chloride 0.9% 1,000 ML IV SCH (13:36)
[2018-09-23] MEDS ORDERED: Ondansetron PF 4 MG/2 ML Vial IVP PRN (13:36)
[2018-09-23] MEDS ORDERED: Norepinephrine 8 MG/0.9% NS 250 ML IVPB SCH (13:45)
--- NOTE | 2018-09-23 14:29 | HP ---
PRIMARY CARE PROVIDER: Luna Pink MD. HISTORY OF PRESENT ILLNESS: The patient referred from [place] to [facility] for abdominal pain, evaluated in the emergency room. No etiology of the abdominal pain was found, but he was found to be hypotensive. [facility] While in the emergency room, he has been put on Levophed. He was found to be hypothermic with a temperature of 91 degrees. PAST MEDICAL HISTORY: Obtained from the medical record, he has paroxysmal atrial fibrillation, not on anticoagulation; hypertension, Alzheimer dementia, gastroesophageal reflux disease, benign prostatic hypertrophy, multiple admissions for encephalopathy, chronic macrocytic anemia. PAST SURGICAL HISTORY: There is no record. ALLERGIES: HE IS REPORTEDLY ALLERGIC TO IODINE. CURRENT MEDICINES: Per records are: 1. Aspirin 325 mg a day. 2. Protonix 40 mg a day. 3. Tramadol 50 mg p.o. q.6 hours p.r.n. 4. Lasix 20 mg a day. 5. Minoxidil 5 mg twice a day. 6. Metoprolol 25 mg twice a day. 7. Calcium carbonate 600 mg twice a day. 8. Multaq 400 mg, 1 twice a day. 9. Flomax 0.4 mg a day. 10. Aricept 10 mg a day. 11. Iron tablets. 12. Diltiazem 30 mg p.o. q.6 hours p.r.n. 13. Potassium chloride 20 mEq once a day. FAMILY HISTORY: No record on electronic medical records. SOCIAL HISTORY: Resident of [facility]. Past documentation states he is full code. Unable to obtain history of smoking, alcohol, etc. REVIEW OF SYSTEMS: Unable to be obtained because of his mental status. PHYSICAL EXAMINATION: VITAL SIGNS: Non arousable. Blood pressure 81/54, now on Levophed at 135/72, pulse ranging from 48 to 57, respirations are 18 to 20, rectal temperature was 91, and O2 saturation was 89% on room air and 94% on 2 L. His examination otherwise is difficulty resist. HEENT: Examination of his eyes and pupils were grossly round and equal. Unable to assess extraocular movements or pupillary reflexes. Sclerae are white. Mouth is dry. Tympanic membranes are impacted by cerumen. Nose is grossly clear. CHEST: Has wheezes, rhonchi in all lung hernandez. HEART: Has a grossly regular rate and rhythm. Heart sounds obscured by breath sounds. No distinct murmurs or gallops were heard. ABDOMEN: Diffusely tender in all quadrants to gentle examination. Bowel sounds were present. There was no obvious mass or hepatosplenomegaly. EXTREMITIES: Reveal 3+ edema with no cyanosis or clubbing. PULSES: Carotid, radial, and femoral pulses are intact. Pedal pulses are difficult to observe to evaluate through the edema. SKIN: Warm and dry with a significant amount of bleeding around the right subclavian site that appears to have stopped. HEME/LYMPH: No tender or swollen lymph nodes palpable in the neck, axilla, or groin. NEUROLOGIC: Cranial nerves are grossly intact. He moves all extremities. Toes are upgoing. Deep tendon reflexes difficult to assess. DIAGNOSTIC STUDIES: Chest x-ray showed bilateral pleural effusions plus either pulmonary edema or bilateral infiltrates difficult to assess reviewed by me. Abdomen and pelvis CT revealed bilateral pleural effusions. No other significant abnormality was found to explain his abdominal pain. EKG has been ordered and we will review when available. Comprehensive metabolic profile; BUN 40, creatinine 2.69. Lytes balanced. Liver functions normal. CK-MB is 7.1, troponin I is 0.31. BNP is 592. Blood gas shows a pH of 733 with a pCO2 elevated at 49.8, and O2 diminished at 74.2, on 2 L by nasal cannula, hemoglobin was 8.9, which is consistent with his most recent hemoglobins post his GI bleed earlier this year. White count 5.5. Platelet count low at 90,000. ADMITTING DIAGNOSES: 1. Abdominal pain. 2. Acute respiratory failure, combined. 3. Hypothermia. 4. Hypotension, on Levophed. 5. Atrial fibrillation. 6. Hypertension. 7. Severe Alzheimer disease. PLAN: The patient on Levophed will move to ICU. Blood cultures have been drawn. Urine culture ordered. Antibiotics have been started. The prognosis for this gentleman is poor. It is not clear exactly what is wrong with him at the present time. I see nothing surgical on the CT scan that would lead me to get a stat surgery consult. I do not believe that the patient would survive an acute surgery anyway. We will get water control station engineer consult and go from there. Job ID: [id number]
[2018-09-23 14:32] LABS: INR-International Normal Ratio 1.1; Prothrombin Time 14.7 SEC (12.0-14.7)
[2018-09-23 14:40] LABS: Vancomycin, Trough 23.2 ug/mL
[2018-09-23] MEDS ORDERED: Furosemide 40 MG/4 ML VIAL SLOW IVP SCH (15:45)
[2018-09-23 16:02] VITALS: BMI 30.7
--- NOTE | 2018-09-23 19:37 | CON ---
DATE OF CONSULTATION: 09/23/2018 CONSULTING PHYSICIAN: Dr. Edson Nnio. This consultation encompassed 70 minutes time, of that time, greater than 50% spent with the patient and/or the patient's unit in the hospital. HISTORY OF PRESENT ILLNESS: The patient is an 83-year-old male, detention resident from [place]. He was found today hypothermic with a temperature of 91 with abdominal pain and low blood pressure. He was subsequently transported here. He is noncommunicative verbally. Past notes in the hospital indicate that he usually is able to talk some. Nurse tells me he has history of Alzheimer disease and Parkinson disease. Since being here, he is being rewarmed. He has had a right subclavian central line placed. He is currently on a Levophed drip. He has been given antibiotics for sepsis. PAST MEDICAL HISTORY: Per old notes; 1. Paroxysmal atrial fibrillation. 2. Hypertension. 3. Alzheimer-type dementia. 4. Reflux. 5. Benign prostatic hypertrophy. 6. Stroke. 7. Ischemic colitis. 8. Encephalopathy. 9. Macrocytic anemia. PAST SURGICAL HISTORY: Not known. FAMILY MEDICAL HISTORY: Not known. SOCIAL HISTORY: Nonsmoker. Does not consume alcohol. ALLERGIES: IODINE. MEDICATIONS: Prior to admission, on discharge from last admission, he was on; 1. Multaq 400 mg b.i.d. 2. Minoxidil 10 mg daily. 3. Protonix 40 mg daily. 4. Flomax 0.4 mg daily. 5. Tramadol 50 mg b.i.d. 6. Cardizem 30 mg every 6 hours as needed for heart rate over 120. 7. Aspirin 325 mg daily. 8. Aricept 10 mg daily. 9. Lasix 20 mg b.i.d. for edema. 10. Metoprolol 25 mg b.i.d. 11. Florastor 250 mg daily. 12. Senokot 1 b.i.d. as needed. REVIEW OF SYSTEMS: Cannot be obtained because the patient is nonverbal. PHYSICAL EXAMINATION: VITAL SIGNS: As of 02:15 p.m., temperature 94.5, pulse in the 50s, O2 saturation 97% on 2 L, blood pressure 140/70. GENERAL: The patient is lying in bed. He looks chronically ill. HEENT: He has a class 4 Mallampati airway. He has reactive pupils. Oropharynx appears dry. NECK: No adenopathy, JVD, or bruits. LUNGS: Clear to auscultation without wheezing. He has diminished breath sounds in the bases. CARDIAC: S1, S2. Irregularly irregular without murmur. ABDOMEN: Soft. He is tender in the right upper quadrant area to deep palpation. Bowel sounds are hypoactive. EXTREMITIES: No clubbing, cyanosis. He has 3+ edema in the ankles ranging to trace edema near the groin region. LABORATORY AND DIAGNOSTIC DATA: ABG; pH 7.33, pCO2 of 49, pO2 of 74, that was on 2 L. White blood cell count 5.5, hematocrit 28.5, platelet count 90, with 78% neutrophils, bands not reported. Sodium 144, potassium 4.5, chloride 107, CO2 is 28, anion gap 10, BUN 40, creatinine 2.7, glucose 83. Troponin 0.031. BNP is 592. His x-ray shows interstitial changes with bilateral effusions. Previous echo in the hospital showed EF of 60% to 65%. CT of the abdomen was nonspecific except for the ascites and pleural effusions. ASSESSMENT: 1. Hypotension with bradycardia and hypothermia at the time of admission. This would suggest either sepsis or some type of leading to profoundly diminished cardiac output. 2. Alzheimer-type dementia. 3. Abdominal pain, which could be consistent with ischemic colitis. RECOMMENDATIONS: 1. I would recommend broad-spectrum IV antibiotics, very judicious fluid administration as he looks fluid overloaded. 2. Interrogate central line for CVP. 3. Continue vasopressors. 4. Pepcid for GI prophylaxis. 5. Consider Cardiology consultation. 6. Need to clarify code status as his prognosis is clearly quite poor. Job ID: [id number]
[2018-09-24] MEDS: Cefepime 2 GM in Sodium Chloride 0.9% 100 ML IVPB SCH ×3 (01:00→22:59)
[2018-09-24] MEDS ORDERED: Vancomycin HCl 1 GM in Sodium Chloride 0.9% 250 ML 300 ML IVPB SCH ×2 (01:00→13:00)
[2018-09-24 04:23] LABS: Anion Gap 16 mmol/L (10-20); BUN (Urea Nitrogen) 39 mg/dL (8.4-25.7); Calc. Creatinine Clearance 24 mL/min (70-130); Calcium 9.1 mg/dL (7.8-10.44); Carbon Dioxide 26 mmol/L (23-31); Chloride 108 mmol/L (98-107); Estimated GFR-MDRD 21; Glucose 73 mg/dL (83-110); Potassium 4.7 mmol/L (3.5-5.1); Sodium 145 mmol/L (136-145)
[2018-09-24 06:45] LABS: #Eosinphils 0.2 thou/uL (0.0-0.7); #Lymphocytes 1.1 thou/uL (1.20-3.40); #Neutrophils 6.4 thou/uL (1.40-6.50); %Basophils 0.2 % (0.0-1.0); %Eosinophils 1.9 % (0.0-10.0); %Lymphocytes 12.6 % (21.0-51.0); %Monocytes 11.3 % (0.0-10.0); Hemoglobin 8.8 g/dL (14.0-18.0); Mean Corpuscular HGB CONC 31.5 g/dL (32.0-36.0); Mean Corpuscular Hemoglobin 27.1 pg (27.0-31.0); Mean Corpuscular Volume 85.9 fL (78.0-98.0); Platelet Count 90 thou/uL (130-400); RBC Distribution Width 20.1 % (11.5-14.5); Red Blood Cell (RBC) Count 3.26 mill/uL (4.70-6.10); White Blood Cell (WBC) Count 8.7 thou/uL (4.8-10.8)
[2018-09-24 08:25] LABS: MDiff Complete? YES; Platelet Morphology Comment Appears Decreased; Polychromasia SLIGHT = 2-3 cells (100X) (0-2/hpf); Schistocytes SLIGHT = 2-5 cells (100X) (0-1/hpf)
[2018-09-24] MEDS: Famotidine/PF 20 mg/2ml Vial SLOW IVP SCH (08:32)
--- NOTE | 2018-09-24 08:58 | RAD ---
CHEST ONE VIEW: HISTORY: Dyspnea. Followup. COMPARISON: 09/23/2018 FINDINGS: The cardiac silhouette remains magnified and obscured by dense bibasilar infiltrates and pleural flui d. Pulmonary vasculature remains engorged with dense bilateral perihilar infiltrate and diffuse reti culonodular interstitial prominence. The mediastinum is midline with aortic calcification. Right guo bclavian central venous catheter remains in place. No evidence of pneumothorax. IMPRESSION: Radiographic findings of pulmonary edema and other findings are stable. POS: [facility]
--- NOTE | 2018-09-24 11:07 | PDOC.PN ---
- Subjective Encounter Start Date: 09/24/18 Encounter Start Time: 12:10 Subjective: Patient seen in ICU. Alert and denies complaints but then -: reports belly pain. Not able to talk clearly. - Objective Resuscitation Status - Order Detail: 09/23/18 13:29 Resuscitation Status Routine Resuscitation Status: FULL: Full Resuscitation Discussed with: steve, no POA present MAR Reviewed: Yes Vital Signs & Weight: Vital Signs (12 hours) Pulse Ox 09/24/18 08:00 97 Weight Weight 188 lb 4.396 oz Most Recent Monitor Data Heart Rate from ECG 56 NIBP 126/48 NIBP BP-Mean 74 Respiration from ECG 17 SpO2 97 I&O: 09/23/18 09/24/18 09/25/18 06:59 06:59 06:59 Intake Total 100 Output Total 1755 75 Balance -1655 -75 Result Diagrams: 09/24/18 03:44 09/24/18 03:30 Radiology Reviewed by me: Yes (Persistent pulmonary edema and effusions) Phys Exam - Physical Examination Constitutional: NAD HEENT: moist MMs Respiratory: no wheezing, no rales, no rhonchi Cardiovascular: RRR Gastrointestinal: soft, positive bowel sounds mod TTP diffusely with mild guarding Neurological: non-focal, moves all 4 limbs Deviation from normal: alert, not able to speak clearly, uncertain baseline Dx/Plan (1) Hypotension Status: Acute Comment: on levophed, possibly due to sepsis though no source of infection identified at this time, normal WBC, afebrile, on Cefepime and Vancomycin since 09/23/18 (2) Bradycardia Code(s): R00.1 - BRADYCARDIA, UNSPECIFIED Status: Acute (3) Hypothermia Code(s): T68.XXXA - HYPOTHERMIA, INITIAL ENCOUNTER Status: Acute (4) Abdominal pain Code(s): R10.9 - UNSPECIFIED ABDOMINAL PAIN Status: Acute Comment: possibly ischemic colitis, CT abdomen without obvious acute eitiology (5) Alzheimer's dementia Code(s): G30.9 - ALZHEIMER'S DISEASE, UNSPECIFIED Status: Chronic Comment: late stage (6) Acute renal failure superimposed on stage 3 chronic kidney disease Code(s): N17.9 - ACUTE KIDNEY FAILURE, UNSPECIFIED; N18.3 - CHRONIC KIDNEY DISEASE, STAGE 3 (MODERATE) Status: Acute Comment: chronically elevated BNP , ECHO pending, pulmonary edema (7) Acute on chronic congestive heart failure Code(s): I50.9 - HEART FAILURE, UNSPECIFIED Status: Acute - Plan cont current plan of care, continue antibiotics * . - Discharge Day Encounter end time: 12:20
[2018-09-24] MEDS: Morphine 2 MG/ML SYRINGE SLOW IVP PRN ×2 (13:02→22:52)
[2018-09-24] MEDS: Vancomycin HCl 1 GM in Premix Bag 1 BAG IVPB SCH (13:03)
--- NOTE | 2018-09-24 13:04 | PRG ---
DATE OF SERVICE: 09/24/2018 SUBJECTIVE: Mr. Aguilar's events have been reviewed. He is in no distress. He is currently nonverbal. OBJECTIVE: VITAL SIGNS: His temperature is back towards normal. GENERAL: He is cachectic appearing. LUNGS: Clear. HEART: Irregular. ABDOMEN: Soft, still mildly tender in his right upper quadrant with some guarding. EXTREMITIES: Without asymmetry. NEURO: Grossly nonfocal as far as moving extremities. No family. Per my last note, he has distant family members, but apparently the power of health care was given to the director of the care home. This poor gentleman does need to have his code status addressed and if he refuses to make that decision, then I suppose Adult Protective Service needs to get involved. LABORATORY DATA: White count is 8.7, hemoglobin is 8.8, and platelets are 90,000. Sodium 145, potassium 4.7, chloride 108, bicarb 26, BUN 39, and creatinine 2.94. IMPRESSION AND PLAN: 1. Status post admission with hypothermia. Blood cultures are negative today. 2. Advanced dementia. 3. Cachexia. 4. Status post esophagogastroduodenoscopy for hematemesis in June of this year. We will continue supportive care. He really should be once stable, transferred back to the care home for comfort care in my opinion. Job ID: [id number]
[2018-09-25 05:43] LABS: Anion Gap 15 mmol/L (10-20); BUN (Urea Nitrogen) 40 mg/dL (8.4-25.7); Calc. Creatinine Clearance 24 mL/min (70-130); Calcium 9.1 mg/dL (7.8-10.44); Carbon Dioxide 25 mmol/L (23-31); Chloride 109 mmol/L (98-107); Estimated GFR-MDRD 21; Potassium 4.3 mmol/L (3.5-5.1); Sodium 145 mmol/L (136-145)
[2018-09-25 05:46] LABS: #Eosinphils 0.3 thou/uL (0.0-0.7); #Lymphocytes 1.3 thou/uL (1.20-3.40); #Monocytes 0.9 thou/uL (0.11-0.59); %Basophils 0.3 % (0.0-1.0); %Eosinophils 3.7 % (0.0-10.0); %Lymphocytes 17.6 % (21.0-51.0); %Monocytes 12.3 % (0.0-10.0); Hemoglobin 8.7 g/dL (14.0-18.0); Mean Corpuscular Hemoglobin 26.8 pg (27.0-31.0); Mean Corpuscular Volume 86.6 fL (78.0-98.0); Mean Platelet Volume 7.9 fL (7.4-10.4); Platelet Count 77 thou/uL (130-400); Platelet Morphology Comment Appears Decreased; RBC Distribution Width 20.1 % (11.5-14.5); Red Blood Cell (RBC) Count 3.24 mill/uL (4.70-6.10); White Blood Cell (WBC) Count 7.5 thou/uL (4.8-10.8)
[2018-09-25 05:47] LABS: Glucose 54 mg/dL (83-110)
[2018-09-25] MEDS ORDERED: Dextrose 50% Abboject 50 ML SYRINGE ONE ×2 (05:54→08:16)
[2018-09-25] MEDS: Famotidine/PF 20 mg/2ml Vial SLOW IVP SCH (09:49)
--- NOTE | 2018-09-25 12:15 | RAD ---
EXAM: XR Ba Swallow W/Speech Therap PROVIDED CLINICAL HISTORY: Dysphagia, oral pharyngeal phase. Feeding difficulties. COMPARISON: None FINDINGS: This examination was performed in conjunction with speech pathology. The patient was administered preston piero consistencies of barium including barium soaked cracker during the exam. The patient demonstrates difficulty in formation of the bolus into the posterior pharynx with all consistencies. There is also premature spill of contrast into the vallecula and piriform sinuses with all consistencies prior to initiation of the swallowing mechanism. A single episode of minimal penetratio n was noted with thin liquid barium. No alessia aspiration was noted during the exam. Degenerative changes are visualized in the cervical spine. IMPRESSION: 1. Significant premature spill of contrast into the vallecula and piriform sinuses prior to initiatio n of the swallowing mechanism. 2. Single episode of minimal penetration, but no aspiration was demonstrated during the exam.
[2018-09-25] MEDS: Cefepime 2 GM in Sodium Chloride 0.9% 100 ML IVPB SCH (13:42)
[2018-09-25] MEDS: Vancomycin HCl 1 GM in Premix Bag 1 BAG IVPB SCH (13:42)
--- NOTE | 2018-09-25 14:50 | PQF ---
ADAM PATEL, [facility] [id number] CLINICAL DOCUMENTATION IMPROVEMENT CLARIFICATION FORM: ICD-10 Updated PLEASE DO AN ADDENDUM TO THE PROGRESS NOTE WITH ANY DOCUMENTATION UPDATES OR ADDITIONS AND CARRY THROUGH TO DC SUMMARY. THANK YOU. DATE: 09/25/18 ATTN: DR. Olga MCCLAIN Please exercise your independent, professional judgment in responding to the clarification form. Clinical indicators are provided on the bottom of this form for your review. Please check appropriate box(s): ACUTE ON CHRONIC CONGESTIVE HEART FAILURE: TYPE: [ ] Systolic / HFrEF [ ] Diastolic / HFpEF [ ] Combined Systolic / Diastolic [ ] Other diagnosis [ x ] Unable to determine gabriel scott patient to open in riskmethods In addition, please specify: Present on Admission (POA): [ ] Yes [ ] No [ ] Unable to determine For continuity of documentation, please document condition throughout progress notes and discharge summary. Thank You. CLINICAL INDICATORS - SIGNS / SYMPTOMS / LABS 09/23 BNP 592.5 09/24 PN (STACIE) DX/PLAN: ACUTE ON CHRONIC CONGESTIVE HEART FAILURE 09/24 ECHO EJECTION FRACTION IS VISUALLY ESTIMATED AT 55-60%, SEVERELY ENLARGED RIGHT VENTRICLE CAVITY, THE LEFT ATRIUM IS SEVERELY DILATED, MARKEDLY ENLARGED RIGHT ATRIUM SIZE, PLEURAL EFFUSION NOTED. RISK: ADVANCED AGE (83) HX CKD3 ACUTE RENAL FAILURE ( STACIE) PN HX HTN (JOHNY) H &P TREATMENTS 09/24 ECHOCARDIOGRAM SUPPLEMENTAL O2 ( 09/23-PRESENT) THANK YOU! CARSON (This form is maintained as a part of the permanent medical record) 2014 [employer]. All Rights Reserved [email or web address] [phone] MTDD
--- NOTE | 2018-09-25 16:09 | PDOC.PN ---
- Subjective Encounter Start Date: 09/25/18 Encounter Start Time: 11:45 Subjective: Patient not very talkative to me. Spoke more with Palliative care yesterday -: and expressed desire to be DNAR. - Objective Resuscitation Status - Order Detail: 09/24/18 18:02 Resuscitation Status Routine Resuscitation Status: DNAR: NO Resuscitation Discussed with: Patient HILARIA Reviewed: Yes Vital Signs & Weight: Vital Signs (12 hours) Temp Pulse Ox 09/25/18 12:00 97.6 F 09/25/18 08:00 99 09/25/18 07:00 97.8 F Weight Weight 187 lb 6.287 oz Most Recent Monitor Data Heart Rate from ECG 69 NIBP 145/97 NIBP BP-Mean 113 Respiration from ECG 18 SpO2 89 I&O: 09/24/18 09/25/18 09/26/18 06:59 06:59 06:59 Intake Total 100 645 300 Output Total 1755 1405 565 Balance -1655 -760 -265 Result Diagrams: 09/25/18 04:52 09/25/18 04:52 Additional Labs: Accuchecks 09/25/18 09/25/18 08:50 08:10 POC Glucose 109 65 L Phys Exam - Physical Examination Constitutional: NAD HEENT: moist MMs Respiratory: no wheezing, no rales, no rhonchi Cardiovascular: RRR Gastrointestinal: soft, positive bowel sounds Musculoskeletal: no edema Neurological: moves all 4 limbs Deviation from normal: answers some yes no questions, otherwise not communicative Dx/Plan (1) Hypotension Status: Acute Comment: off levophed, possibly due to sepsis though no source of infection identified at this time, normal WBC, afebrile, on Cefepime and Vancomycin since 09/23/18 (2) Bradycardia Code(s): R00.1 - BRADYCARDIA, UNSPECIFIED Status: Acute (3) Hypothermia Code(s): T68.XXXA - HYPOTHERMIA, INITIAL ENCOUNTER Status: Acute (4) Abdominal pain Code(s): R10.9 - UNSPECIFIED ABDOMINAL PAIN Status: Acute Comment: possibly ischemic colitis, CT abdomen without obvious acute eitiology (5) Alzheimer's dementia Code(s): G30.9 - ALZHEIMER'S DISEASE, UNSPECIFIED Status: Chronic Comment: late stage (6) Acute renal failure superimposed on stage 3 chronic kidney disease Code(s): N17.9 - ACUTE KIDNEY FAILURE, UNSPECIFIED; N18.3 - CHRONIC KIDNEY DISEASE, STAGE 3 (MODERATE) Status: Acute (7) Acute on chronic congestive heart failure Code(s): I50.9 - HEART FAILURE, UNSPECIFIED Status: Acute Comment: ECHO with intact EF, very dilated right ventricle and elevated pulmonary artery pressures - Plan cont current plan of care, continue antibiotics, speech therapy MBS today and start diet if able -: patient probably appropriate for comfort care/hospice though lack of -: MPOA or close family a difficulty * . - Discharge Day Encounter end time: 12:00
--- NOTE | 2018-09-25 16:58 | PQF ---
ADAM PATEL RYAN ANDREW MD [id number] CLINICAL DOCUMENTATION IMPROVEMENT CLARIFICATION FORM: ICD-10 Updated PLEASE DO AN ADDENDUM TO THE PROGRESS NOTE WITH ANY DOCUMENTATION UPDATES OR ADDITIONS AND CARRY THROUGH TO DC SUMMARY. THANK YOU. DATE: 09/25/18 ATTN:DR. Federico QUINONES Please exercise your independent, professional judgment in responding to the clarification form. Clinical indicators are provided on the bottom of this form for your review. Please check appropriate box(s): ACUTE ON CHRONIC CONGESTIVE HEART FAILURE: TYPE: [ ] Systolic / HFrEF [ X ] Diastolic / HFpEF [ ] Combined Systolic / Diastolic [ ] Other diagnosis [ ] Unable to determine In addition, please specify: Present on Admission (POA): [ X ] Yes [ ] No [ ] Unable to determine For continuity of documentation, please document condition throughout progress notes and discharge summary. Thank You. CLINICAL INDICATORS - SIGNS / SYMPTOMS / LABS 09/24 PN (STACIE) DX/PLAN: ACUTE ON CHRONIC CONGESTIVE HEART FAILURE 09/24 ECHO EJECTION FRACTION IS VISUALLY ESTIMATED AT 55-60%, SEVERELY ENLARGED RIGHT VENTRICLE CAVITY, THE LEFT ATRIUM IS SEVERELY DILATED, MARKEDLY ENLARGED RIGHT ATRIUM SIZE, PLEURAL EFFUSION NOTED. RISK: ADVANCED AGE (83) HX CKD3 ACUTE RENAL FAILURE ( STACIE) PN HX HTN (MCCLAIN) H &P TREATMENTS 09/24 ECHOCARDIOGRAM SUPPLEMENTAL O2 ( 09/23-PRESENT) THANK YOU! CARSON (This form is maintained as a part of the permanent medical record) 2014 [employer], [employer] All Rights Reserved [email or web address] [email or web address] [phone] MTDD
--- NOTE | 2018-09-25 18:06 | PRG ---
DATE OF SERVICE: 09/25/2018 SUBJECTIVE: Josué Aguilar is nonverbal. He is making eye contact. OBJECTIVE: VITAL SIGNS: Today's blood pressure is 146/113, heart rate is in the 60s, respiratory rate is in the teens. He is now do not resuscitate patient by his power of health care. LUNGS: Clear anteriorly. HEART: Regular rhythm. ABDOMEN: Soft. EXTREMITIES: Without edema. DIAGNOSTIC DATA: He had a modified barium speech study today showing minor penetration and aspiration. He is not teachable in my opinion given his dementia from a swallowing standpoint. I am a believer that he should be allowed to eat just for quality of life reasons. Consideration should be given towards getting hospice arranged at the long-term. LABORATORY DATA: White count 7.5, hemoglobin 8.7, platelets 77,000. Sodium 145, potassium 4.3, chloride 109, bicarb 25, BUN 40, and creatinine 2.84. IMPRESSION AND PLAN: 1. Intravascular volume depletion, improving. 2. Acute on chronic kidney disease. 3. Hypothermia. 4. Advanced dementia with cachexia. 5. History of hematemesis earlier this year, status post esophagogastroduodenoscopy. 6. Mild penetration on barium swallow. I would not recommend PEG feedings for this gentleman. Let him continue to eat when he feels like eating. Try to continue to hydrate him orally as tolerated. He is a candidate to move out of the critical care unit in my opinion to a medical bed, and actually given that his cultures are negative and he is afebrile, he probably should have his antimicrobial therapy simplified. His radiographic abnormality is most likely related to cardiogenic pulmonary edema. I feel supportive care long-term is the best option for Mr. Aguilar. Job ID: [id number]
[2018-09-26] MEDS: Cefepime 2 GM in Sodium Chloride 0.9% 100 ML IVPB SCH ×2 (00:30→12:02)
[2018-09-26] MEDS: Morphine 2 MG/ML SYRINGE SLOW IVP PRN (03:22)
[2018-09-26 06:39] LABS: Anion Gap 17 mmol/L (10-20); BUN (Urea Nitrogen) 34 mg/dL (8.4-25.7); Calc. Creatinine Clearance 27 mL/min (70-130); Calcium 9.3 mg/dL (7.8-10.44); Carbon Dioxide 24 mmol/L (23-31); Chloride 111 mmol/L (98-107); Estimated GFR-MDRD 24; Glucose 64 mg/dL (83-110); Potassium 4.1 mmol/L (3.5-5.1); Sodium 148 mmol/L (136-145)
[2018-09-26 06:48] LABS: #Eosinphils 0.3 thou/uL (0.0-0.7); #Lymphocytes 1.3 thou/uL (1.20-3.40); #Neutrophils 5.6 thou/uL (1.40-6.50); %Basophils 0.3 % (0.0-1.0); %Lymphocytes 15.6 % (21.0-51.0); %Monocytes 11.9 % (0.0-10.0); %Neutrophils 68.1 % (42.0-75.0); Anisocytosis SLIGHT = 6-15 cells (100X) (0-5/hpf); MDiff Complete? YES; Mean Corpuscular HGB CONC 31.5 g/dL (32.0-36.0); Mean Corpuscular Volume 85.9 fL (78.0-98.0); Mean Platelet Volume 7.6 fL (7.4-10.4); Platelet Count 68 thou/uL (130-400); Platelet Morphology Comment Appears Decreased; RBC Distribution Width 19.7 % (11.5-14.5); Red Blood Cell (RBC) Count 3.33 mill/uL (4.70-6.10); White Blood Cell (WBC) Count 8.2 thou/uL (4.8-10.8)
[2018-09-26] MEDS ORDERED: Dextrose 50% Abboject 50 ML SYRINGE ONE (07:31)
[2018-09-26] MEDS: Dextrose 5% in Water 1,000 ML IV SCH ×2 (07:56→20:37)
[2018-09-26] MEDS: Famotidine/PF 20 mg/2ml Vial SLOW IVP SCH (07:57)
--- NOTE | 2018-09-26 12:44 | PDOC.PN ---
- Subjective Encounter Start Date: 09/26/18 Encounter Start Time: 12:15 Subjective: Patient without events overnight. No pain complaint this AM. -: Hard to understand him. He says he is at home. Not oriented at all. -: Suspect this is baseline. - Objective Resuscitation Status - Order Detail: 09/24/18 18:02 Resuscitation Status Routine Resuscitation Status: DNAR: NO Resuscitation Discussed with: Patient MAR Reviewed: Yes Vital Signs & Weight: Vital Signs (12 hours) Temp Pulse Resp BP Pulse Ox 09/26/18 08:00 93 L 09/26/18 07:37 97.9 F 58 L 20 166/77 H 93 L 09/26/18 04:12 97.7 F 61 16 93 L 09/26/18 04:00 177/80 H 09/26/18 01:02 98.0 F 57 L 15 175/68 H 96 Weight Weight 187 lb 6.287 oz Most Recent Monitor Data Heart Rate from ECG 69 NIBP 142/74 NIBP BP-Mean 96 Respiration from ECG 17 SpO2 97 I&O: 09/25/18 09/26/18 09/27/18 06:59 06:59 06:59 Intake Total 645 692 120 Output Total 1405 1390 Balance -760 -698 120 Result Diagrams: 09/26/18 06:07 09/26/18 06:07 Additional Labs: Accuchecks 09/26/18 09/26/18 08:08 07:19 POC Glucose 103 57 L* Phys Exam - Physical Examination Constitutional: NAD HEENT: moist MMs Respiratory: no wheezing, no rales, no rhonchi Cardiovascular: RRR, no significant murmur Gastrointestinal: soft, non-tender, positive bowel sounds Neurological: non-focal, moves all 4 limbs Deviation from normal: alert, not oriented Dx/Plan (1) Hypotension Status: Acute Comment: off levophed, possibly due to sepsis though no source of infection identified at this time, normal WBC, afebrile, on Cefepime and Vancomycin since 09/23/18 (2) Bradycardia Code(s): R00.1 - BRADYCARDIA, UNSPECIFIED Status: Acute Comment: mild (3) Hypothermia Code(s): T68.XXXA - HYPOTHERMIA, INITIAL ENCOUNTER Status: Resolved (4) Abdominal pain Code(s): R10.9 - UNSPECIFIED ABDOMINAL PAIN Status: Resolved Comment: possibly ischemic colitis, CT abdomen without obvious acute eitiology (5) Alzheimer's dementia Code(s): G30.9 - ALZHEIMER'S DISEASE, UNSPECIFIED Status: Chronic Comment: late stage (6) Acute renal failure superimposed on stage 3 chronic kidney disease Code(s): N17.9 - ACUTE KIDNEY FAILURE, UNSPECIFIED; N18.3 - CHRONIC KIDNEY DISEASE, STAGE 3 (MODERATE) Status: Acute Comment: improved a bit today (7) Acute on chronic congestive heart failure Code(s): I50.9 - HEART FAILURE, UNSPECIFIED Status: Acute Comment: ECHO with intact EF, very dilated right ventricle and elevated pulmonary artery pressures (8) Hypoglycemia Code(s): E16.2 - HYPOGLYCEMIA, UNSPECIFIED Status: Acute Comment: possibly secondary to poor po intake, dextrose infusion started this AM - Plan cont current plan of care, continue antibiotics patient would be hospice appropriate, will discuss with palliative care -: no MPOA identified and patient not competent to make decisions * . - Discharge Day Encounter end time: 12:30
[2018-09-26] MEDS: Vancomycin HCl 1 GM in Premix Bag 1 BAG IVPB SCH (14:33)
[2018-09-26] MEDS ORDERED: Polyethylene Glycol 3350 17 GM Packet PO PRN (15:35)
[2018-09-26] MEDS: Dronedarone HCl 400 MG TAB PO SCH (16:10)
[2018-09-26] MEDS ORDERED: Donepezil HCl 5 MG TAB PO SCH (17:00)
[2018-09-26] MEDS: Metoprolol Tartrate 25 MG TAB PO SCH (20:36)
[2018-09-26] MEDS: traMADol HCl 50 MG TAB PO SCH (20:36)
[2018-09-27] MEDS: Cefepime 2 GM in Sodium Chloride 0.9% 100 ML IVPB SCH ×2 (00:16→11:56)
[2018-09-27] MEDS: Dronedarone HCl 400 MG TAB PO SCH ×2 (07:36→16:13)
[2018-09-27] MEDS: traMADol HCl 50 MG TAB PO SCH ×2 (07:38→19:59)
[2018-09-27] MEDS: Tamsulosin HCl 0.4 MG CAP PO SCH (07:40)
[2018-09-27] MEDS: Metoprolol Tartrate 25 MG TAB PO SCH ×2 (07:40→19:59)
[2018-09-27] MEDS: Famotidine/PF 20 mg/2ml Vial SLOW IVP SCH (07:46)
[2018-09-27] MEDS ORDERED: Aspirin 325 MG TAB PO SCH (09:00)
[2018-09-27] MEDS ORDERED: Minoxidil 10 MG TAB PO SCH (09:00)
[2018-09-27] MEDS ORDERED: Saccharomyces boulardii 250 MG CAP PO SCH (09:00)
[2018-09-27] MEDS: Dextrose 5% in Water 1,000 ML IV SCH (12:01)
[2018-09-27 12:29] LABS: Vancomycin, Trough 25.1 ug/mL
[2018-09-27] MEDS ORDERED: Acetaminophen 650 MG in Premix Bag 1 BAG IVPB PRN (15:20)
[2018-09-27] MEDS ORDERED: Lorazepam 2 MG/ML VIAL SLOW IVP PRN (15:20)
--- NOTE | 2018-09-27 15:24 | PDOC.PN ---
- Subjective Encounter Start Date: 09/27/18 (f/u hypothermia) Encounter Start Time: 15:22 Subjective: Pt hypoglycemic at times and on D5, no overnight events - Objective Resuscitation Status - Order Detail: 09/24/18 18:02 Resuscitation Status Routine Resuscitation Status: DNAR: NO Resuscitation Discussed with: Patient Vital Signs & Weight: Vital Signs (12 hours) Temp Pulse Resp BP Pulse Ox 09/27/18 08:00 92 L 09/27/18 07:33 97.7 F 62 20 176/82 H 92 L Weight Weight 187 lb 6.287 oz Most Recent Monitor Data Heart Rate from ECG 69 NIBP 142/74 NIBP BP-Mean 96 Respiration from ECG 17 SpO2 97 I&O: 09/26/18 09/27/18 09/28/18 06:59 06:59 06:59 Intake Total 692 1380 Output Total 1390 1150 Balance -698 230 Result Diagrams: 09/26/18 06:07 09/26/18 06:07 Phys Exam - Physical Examination Constitutional: NAD no response with exam Respiratory: no wheezing, no rales, no rhonchi Cardiovascular: RRR, no significant murmur Gastrointestinal: soft, no distention, positive bowel sounds Dx/Plan (1) Acute on chronic congestive heart failure Code(s): I50.9 - HEART FAILURE, UNSPECIFIED Status: Acute Qualifiers: Heart failure type: diastolic Qualified Code(s): I50.33 - Acute on chronic diastolic (congestive) heart failure Comment: ECHO with intact EF, very dilated right ventricle and elevated pulmonary artery pressures (2) Acute renal failure superimposed on stage 3 chronic kidney disease Code(s): N17.9 - ACUTE KIDNEY FAILURE, UNSPECIFIED; N18.3 - CHRONIC KIDNEY DISEASE, STAGE 3 (MODERATE) Status: Acute (3) Hypoglycemia Code(s): E16.2 - HYPOGLYCEMIA, UNSPECIFIED Status: Acute (4) Hypotension Status: Acute (5) Alzheimer's dementia Code(s): G30.9 - ALZHEIMER'S DISEASE, UNSPECIFIED Status: Chronic - Plan * Reviewed chart and pt with advanced dementia and multiple abnormalities that demonstrate he is at end of life. Platelets declining, hypoglycemic, renal function worse during this hospitalization. * Pt is currently restrained so that there is no interference with medical care - central line, hernandez catheter * Reviewed Dr. Alva's note and I agree that pt is hospice appropriate. Called and discussed this with Margret Adorno/ARACELI at the [facility] that I think we are doing things to the patient and may be increasing quantity of life, but not quality of life, and I dont believe we will change the outcome. Discussed role of hospice - she agrees with this. She states it can be done at the [facility], but she is uncertain on when it can be arranged. I discussed that end of life may be from hypoglycemia hwne the IV fluids are d/c, and I'm uncertain when that would occur. Discussed initiating comfort care here and following on a daily basis on if he can be transferred back to the [facility]. She agrees with this. * d/c all unnecessary medications, all tubes/lines. * ordered prn ativan, pain meds available, feeding for pleasure only * d/c accuchecks and vital signs * anticipated in hospital * * Discussed with case operator and with Po/SHABBIR today. * Margret Adorno/cell number [phone] * * No questions by any of his care team at the end of call/evaluation
[2018-09-28] MEDS: traMADol HCl 50 MG TAB PO SCH ×2 (08:43→20:56)
[2018-09-28] MEDS: Tamsulosin HCl 0.4 MG CAP PO SCH (08:43)
[2018-09-28] MEDS: Dronedarone HCl 400 MG TAB PO SCH ×2 (08:43→17:04)
[2018-09-28] MEDS: Metoprolol Tartrate 25 MG TAB PO SCH ×2 (08:43→20:57)
--- NOTE | 2018-09-28 10:44 | PDOC.PN ---
- Subjective Encounter Start Date: 09/28/18 (f/u abd pain) Encounter Start Time: 10:41 Subjective: Pt awake this morning, ate breakfast, responding to the -: nurse this morning. No overnight events - Objective Resuscitation Status - Order Detail: 09/24/18 18:02 Resuscitation Status Routine Resuscitation Status: DNAR: NO Resuscitation Discussed with: Patient Vital Signs & Weight: Vital Signs (12 hours) Temp Pulse Resp BP Pulse Ox 09/28/18 07:28 97.5 F L 50 L 18 145/73 H 96 Weight Weight 187 lb 6.287 oz Most Recent Monitor Data Heart Rate from ECG 69 NIBP 142/74 NIBP BP-Mean 96 Respiration from ECG 17 SpO2 97 I&O: 09/27/18 09/28/18 09/29/18 06:59 06:59 06:59 Intake Total 1380 Output Total 1150 Balance 230 Result Diagrams: 09/26/18 06:07 09/26/18 06:07 Phys Exam - Physical Examination Constitutional: NAD expiratory wheezing, no audible rales/rhonchi Cardiovascular: RRR, no significant murmur Gastrointestinal: soft, non-tender, no distention, positive bowel sounds Musculoskeletal: no edema Deviation from normal: mumbling speech - some audible Skin: no rash Dx/Plan (1) Acute on chronic congestive heart failure Code(s): I50.9 - HEART FAILURE, UNSPECIFIED Status: Acute Qualifiers: Heart failure type: diastolic Qualified Code(s): I50.33 - Acute on chronic diastolic (congestive) heart failure (2) Acute renal failure superimposed on stage 3 chronic kidney disease Code(s): N17.9 - ACUTE KIDNEY FAILURE, UNSPECIFIED; N18.3 - CHRONIC KIDNEY DISEASE, STAGE 3 (MODERATE) Status: Acute (3) Hypoglycemia Code(s): E16.2 - HYPOGLYCEMIA, UNSPECIFIED Status: Acute (4) Hypotension Status: Acute (5) Alzheimer's dementia Code(s): G30.9 - ALZHEIMER'S DISEASE, UNSPECIFIED Status: Chronic - Plan * * Reviewed chart and pt with advanced dementia - discussed with [facility] sales office administrator Margret yesterday about hospice care and minimizing meds with focus on comfort and quality of life. * Updated her today that pt is awake and responsive, taking PO and I think he is safe for transport back to the [facility] with hospice support. She states this will be possible on Sunday. Will continue the same meds- minimized from yesterday - and again focus on quality of life. If pt's body is showing that it is end of life, we will continue to focus on comfort. She states this is c/ w with his wishes. * Add neb tx for wheezing today - prn * Other meds available for comfort - ativan, pain meds, * feeding for pleasure * Possible in hospital * Discussed with lead case manager/Nancy yesterday who contacted a hospice company to provide services back at the [facility]. * * Margret Adorno/cell number [phone] * * No questions by any of his care team at the end of call/evaluation.
[2018-09-28] MEDS ORDERED: Vancomycin HCl 750 MG in Sodium Chloride 0.9% 250 ML 250 ML IVPB SCH (13:00)
--- NOTE | 2018-09-28 15:32 | EKG ---
Test Reason : Blood Pressure : / mmHG Vent. Rate : 057 BPM Atrial Rate : 057 BPM P-R Int : 000 ms QRS Dur : 132 ms QT Int : 528 ms P-R-T Axes : 000 -37 -31 degrees QTc Int : 513 ms Wide QRS rhythm Left axis deviation Right bundle branch block Inferior infarct , age undetermined Anterior infarct , age undetermined Abnormal ECG Confirmed by BLAKE DONOVAN, MARISOL ([id number]), proposal editor ANNABELLA COHEN ([id number]) on 09/28/2018 3:32:02 PM Referred By: Confirmed By:MARISOL LOZANO MD
[2018-09-29] MEDS: Dronedarone HCl 400 MG TAB PO SCH ×2 (07:56→16:31)
[2018-09-29] MEDS: traMADol HCl 50 MG TAB PO SCH ×2 (07:56→20:55)
[2018-09-29] MEDS: Metoprolol Tartrate 25 MG TAB PO SCH ×2 (07:58→20:55)
[2018-09-29] MEDS: Tamsulosin HCl 0.4 MG CAP PO SCH (07:58)
--- NOTE | 2018-09-29 14:54 | PDOC.PN ---
- Subjective Encounter Start Date: 09/29/18 (f/u aspiration) Encounter Start Time: 14:51 Subjective: No overnight events. RN reports pt feeding well. Denies any -: new concerns. - Objective Resuscitation Status - Order Detail: 09/24/18 18:02 Resuscitation Status Routine Resuscitation Status: DNAR: NO Resuscitation Discussed with: Patient Vital Signs & Weight: Vital Signs (12 hours) Temp Pulse Resp BP Pulse Ox 09/29/18 08:00 100 09/29/18 07:31 97.4 F L 43 L 18 147/51 H 99 Weight Weight 187 lb 6.287 oz Most Recent Monitor Data Heart Rate from ECG 69 NIBP 142/74 NIBP BP-Mean 96 Respiration from ECG 17 SpO2 97 I&O: 09/28/18 09/29/18 09/30/18 06:59 06:59 06:59 Intake Total 320 Balance 320 Result Diagrams: 09/26/18 06:07 09/26/18 06:07 Phys Exam - Physical Examination Constitutional: NAD pt sleeping during my exam. Will open eyes to exam and then close again Respiratory: no wheezing, no rales, no rhonchi Cardiovascular: RRR, no significant murmur Gastrointestinal: soft, non-tender, no distention, positive bowel sounds Musculoskeletal: no edema unable to adequately assess Dx/Plan (1) Acute on chronic congestive heart failure Code(s): I50.9 - HEART FAILURE, UNSPECIFIED Status: Acute Qualifiers: Heart failure type: diastolic Qualified Code(s): I50.33 - Acute on chronic diastolic (congestive) heart failure (2) Acute renal failure superimposed on stage 3 chronic kidney disease Code(s): N17.9 - ACUTE KIDNEY FAILURE, UNSPECIFIED; N18.3 - CHRONIC KIDNEY DISEASE, STAGE 3 (MODERATE) Status: Acute (3) Hypoglycemia Code(s): E16.2 - HYPOGLYCEMIA, UNSPECIFIED Status: Acute (4) Hypotension Status: Acute (5) Alzheimer's dementia Code(s): G30.9 - ALZHEIMER'S DISEASE, UNSPECIFIED Status: Chronic - Plan * Pt changed to comfort care 2 days ago due to the declining status - in discussion with [facility] senior stock plan administrator/MPOA. Hospice has been contacted by [facility]/ Nancy with plan to provide services at the [facility]. Anticipate, if no changes, that pt can return to his facility tomorrow. * * Medications minimized c/w comfort measures and prn meds available. * feeding for pleasure given known risk of aspiration * Possible in hospital * [facility] Former/ARACELI - Margret Adorno/cell number [phone] *
[2018-09-30] MEDS: Dronedarone HCl 400 MG TAB PO SCH ×2 (08:34→16:57)
[2018-09-30] MEDS: Tamsulosin HCl 0.4 MG CAP PO SCH (08:34)
[2018-09-30] MEDS: Metoprolol Tartrate 25 MG TAB PO SCH (08:34)
[2018-09-30] MEDS: traMADol HCl 50 MG TAB PO SCH (08:35)
--- NOTE | 2018-09-30 08:36 | PDOC.PN ---
- Subjective Encounter Start Date: 09/30/18 Encounter Start Time: 10:00 -: non-verbal Subjective: No events overnight. Patient not waking up this AM. - Objective Resuscitation Status - Order Detail: 09/24/18 18:02 Resuscitation Status Routine Resuscitation Status: DNAR: NO Resuscitation Discussed with: Patient HILARIA Reviewed: Yes Vital Signs & Weight: Vital Signs (12 hours) Temp Pulse Resp BP Pulse Ox 09/30/18 08:12 98.2 F 53 L 20 145/66 H 99 09/29/18 20:55 99 Weight Weight 187 lb 6.287 oz Most Recent Monitor Data Heart Rate from ECG 69 NIBP 142/74 NIBP BP-Mean 96 Respiration from ECG 17 SpO2 97 I&O: 09/29/18 09/30/18 10/01/18 06:59 06:59 06:59 Intake Total 320 1250 Balance 320 1250 Result Diagrams: 09/26/18 06:07 09/26/18 06:07 Phys Exam - Physical Examination Constitutional: NAD HEENT: moist MMs Respiratory: no wheezing, no rales, no rhonchi Cardiovascular: RRR Gastrointestinal: soft, positive bowel sounds Deviation from normal: somnolent, not talking this AM Dx/Plan (1) Alzheimer's dementia Code(s): G30.9 - ALZHEIMER'S DISEASE, UNSPECIFIED Status: Chronic Comment: progressive, end stage (2) Hypotension Status: Acute (3) Bradycardia Code(s): R00.1 - BRADYCARDIA, UNSPECIFIED Status: Acute Comment: mild (4) Hypothermia Code(s): T68.XXXA - HYPOTHERMIA, INITIAL ENCOUNTER Status: Resolved (5) Abdominal pain Code(s): R10.9 - UNSPECIFIED ABDOMINAL PAIN Status: Resolved Comment: possibly ischemic colitis, CT abdomen without obvious acute eitiology (6) Acute renal failure superimposed on stage 3 chronic kidney disease Code(s): N17.9 - ACUTE KIDNEY FAILURE, UNSPECIFIED; N18.3 - CHRONIC KIDNEY DISEASE, STAGE 3 (MODERATE) Status: Acute (7) Acute on chronic congestive heart failure Code(s): I50.9 - HEART FAILURE, UNSPECIFIED Status: Acute Qualifiers: Heart failure type: diastolic Qualified Code(s): I50.33 - Acute on chronic diastolic (congestive) heart failure (8) Hypoglycemia Code(s): E16.2 - HYPOGLYCEMIA, UNSPECIFIED Status: Acute (9) Dysphagia Code(s): R13.10 - DYSPHAGIA, UNSPECIFIED Status: Chronic Comment: puree solids, extra gravy, no straws, diet with risk of aspiration - Plan cont current plan of care comfort care, transfer to NH on hospice today * . - Discharge Day Encounter end time: 10:25
[2018-09-30 16:27] VITALS: BP 141/87; TEMP 98.1
--- NOTE | 2018-10-01 01:25 | DIS ---
DATE OF ADMISSION: 09/23/2018 DATE OF DISCHARGE: 09/30/2018 PRIMARY CARE PHYSICIAN: Dr. Pink. REASON FOR ADMISSION: Hypotension and hypothermia. DIAGNOSES AT DISCHARGE: 1. Alzheimer's dementia, end-stage. 2. Hypotension, resolved. 3. Hypothermia, resolved. 4. Mild bradycardia. 5. Abdominal pain, resolved. 6. Acute on chronic renal failure, improved. 7. Acute on chronic diastolic congestive heart failure, back to baseline. 8. Hypoglycemia secondary to poor dietary intake. 9. Dysphagia. PROCEDURES: 1. CT abdomen and pelvis without contrast showing no CT evidence of urinary tract calculi or obstruction. Moderate-sized bilateral pleural effusions, tiny pericardial effusion and mild ascites. 2. Echocardiogram showing ejection fraction of 55% to 60%, severe enlargement of the right ventricle, moderately elevated pulmonary artery pressures of 70 to 80 mmHg. 3. Speech modified barium swallow showing significant premature spill of contrast in the vallecula and piriform sinuses prior to initiation of swallowing mechanism and a single episode of mild penetration, but no aspiration demonstrated during the exam. CONSULTATIONS: Pulmonology, Dr. Goode. SUMMARY OF HOSPITAL COURSE: This is an 83-year-old male, resident of a custodial with Alzheimer's. He was sent from the custodial for abdominal pain, found to be hypotensive and hypothermic. The patient was transferred to the hospital and following antibiotics, has evaluations done as above. He initially had to be on Levophed, but this was able to be titrated off. His diuretics for his congestive heart failure were held. The patient had mild improvement during hospitalization. He remained mostly nonverbal, eventually stopped complaining of abdominal pain and no evidence of infection was found. Eventually, his antibiotics were stopped. The patient had speech evaluation and swallow exam done as above. He had very poor p.o. intake. All of his problems were thought to be secondary to his progressive Alzheimer's dementia. Family was attempted to be contacted. He actually has no close relatives and the medical power of sports attorney is the head of the custodial that he is at. Palliative Care did discuss with them and only eventually elected to discharge him on hospice due to his severe progression of his Alzheimer's and likely passing within the next 6 months. On the day of discharge, the patient was continued to take poor p.o. intake, but was in no distress. DISCHARGE MANAGEMENT: Discharged back to custodial on hospice. ACTIVITY: As tolerated. DIET: Low-sodium diet with puree texture. No liquids by straw or extra gravy and sauce and diet with risks. He is also to be on fluid restriction of 1500 mL. All other care to be determined by the hospice agency, [facility], which will take care of him at [facility]. Job ID: [id number]
== END 2018-09-30 17:12 | disposition hospice, inpatient (51) | DRG 682 ==
LOC: ERS 09:46 → CCU 12:45 → T4-A 09-25 20:27
PROVIDERS: ADMIT Internal Medicine; ATTEND Internal Medicine
DX: N17.9 Acute kidney failure, unspecified (principal); I50.33 Acute on chronic diastolic (congestive) heart failure; I13.0 Hypertensive heart and chronic kidney disease with heart failure and stage 1 through stage 4 chronic kidney disease, or unspecified chronic kidney disease; R64 Cachexia; I48.0 Paroxysmal atrial fibrillation; Z66 Do not resuscitate; Z51.5 Encounter for palliative care; G30.9 Alzheimer's disease, unspecified; F02.80 Dementia in other diseases classified elsewhere, unspecified severity, without behavioral disturbance, psychotic disturbance, mood disturbance, and anxiety; K21.9 Gastro-esophageal reflux disease without esophagitis; N40.0 Benign prostatic hyperplasia without lower urinary tract symptoms; T68.XXXA Hypothermia, initial encounter; I95.9 Hypotension, unspecified; N18.3 Chronic kidney disease, stage 3 (moderate); E16.2 Hypoglycemia, unspecified; R13.10 Dysphagia, unspecified; Z79.82 Long term (current) use of aspirin; Z79.899 Other long term (current) drug therapy; Z86.73 Personal history of transient ischemic attack (TIA), and cerebral infarction without residual deficits; Z68.30 Body mass index [BMI] 30.0-30.9, adult
CPT/HCPCS: 36415; 36416; 36556; 51702; 71045; 74176; 74230; 80048; 80053; 80202; 81003; 82150; 82533; 82550; 82553; 82805; 83605; 83690; 83880; 84443; 84484; 85025; 85610; 87040; 87086; 93005; 93306; 94640; 96361; 96365; 96366; 96368; J0692; J1940; J2270; J2543; J3370; J3490; J7050; J7620; S0028